=== PATIENT | female | born 1950 | race Caucasian/White ===

== ENCOUNTER 2019-05-27 05:39 | Outpatient (RCR) | payer MEDICARE, MEDICAID, SELFPAY | END 2019-06-04 00:01 | LOC: ONCMTN 05:39 | PROVIDERS: Family Provider Nurse Practitioner Family; Visit Provider Internal Medicine Hematology & Oncology | DX: D50.9 Iron deficiency anemia, unspecified (principal); J44.9 Chronic obstructive pulmonary disease, unspecified; G47.33 Obstructive sleep apnea (adult) (pediatric); E11.22 Type 2 diabetes mellitus with diabetic chronic kidney disease; N18.9 Chronic kidney disease, unspecified; Z79.4 Long term (current) use of insulin; Z86.73 Personal history of transient ischemic attack (TIA), and cerebral infarction without residual deficits; Z79.01 Long term (current) use of anticoagulants | CPT/HCPCS: 82728; 83540; 83550; 85025; 99213 ==

== ENCOUNTER 2019-07-18 08:00 | Outpatient (CLI) | payer MEDICARE, MEDICAID, SELFPAY ==
[2019-07-18 10:38] LABS: Basophils % 0.2 %; Eosinophils # 0.2 10^3/uL (0.0-0.8); Eosinophils % 2.7 %; Hematocrit 47.7 % (37.0-47.0); Hemoglobin 15.9 g/dL (11.5-15.3); Lymphocytes % 33.5 %; Mean Corpuscular HGB Conc 33.3 g/dL (30.0-36.0); Mean Corpuscular Hemoglobin 33.4 pg (28.0-34.0); Mean Corpuscular Volume 100.2 fL (81-99); Mean Platelet Volume 9.4 fL (7.4-10.4); Monocytes # 0.7 10^3/uL (0.2-0.9); Monocytes % 7.9 %; Neutrophils # 4.9 10^3/uL (1.8-7.7); Neutrophils % 55.1 %; Nucleated Red Blood Cells % 0 %; Platelet Count 269 10^3/cmm (130-400); Red Blood Count 4.76 10^6/uL (4.1-5.3); Red Cell Distribution Width 13.3 % (12.1-15.1); White Blood Count 8.8 10^3/uL (4.0-10.0)
[2019-07-18 10:45] LABS: Ferritin 65 ng/mL (15-150); Iron 114 ug/dL (37-145); Percent Saturation 42.3 % (20-50); Total Iron Binding Capacity 269 mcg/dl; Unsaturated Iron Binding 155 ug/dL (112-347)
== END 2019-07-18 08:01 | disposition home or self-care (01) ==
LOC: ONCMED 09:41
PROVIDERS: Family Provider Nurse Practitioner Family; PCP Nurse Practitioner Family; Visit Provider Internal Medicine Hematology & Oncology
DX: D50.0 Iron deficiency anemia secondary to blood loss (chronic) (principal)
CPT/HCPCS: 82728; 83540; 83550; 85025

== ENCOUNTER 2019-09-18 07:50 | Outpatient (CLI) | payer MEDICARE, MEDICAID, SELFPAY ==
[2019-09-18 12:39] LABS: Basophils % 0.2 %; Eosinophils # 0.2 10^3/uL (0.0-0.8); Eosinophils % 1.9 %; Hematocrit 46.4 % (37.0-47.0); Hemoglobin 15.4 g/dL (11.5-15.3); Lymphocytes # 2.5 10^3/uL (0.8-4.8); Lymphocytes % 21.6 %; Mean Corpuscular HGB Conc 33.2 g/dL (30.0-36.0); Mean Corpuscular Hemoglobin 34.5 pg (28.0-34.0); Mean Corpuscular Volume 103.8 fL (81-99); Mean Platelet Volume 9.1 fL (7.4-10.4); Monocytes # 0.9 10^3/uL (0.2-0.9); Monocytes % 7.2 %; Neutrophils % 68.5 %; Nucleated Red Blood Cells % 0 %; Platelet Count 309 10^3/cmm (130-400); Red Blood Count 4.47 10^6/uL (4.1-5.3); Red Cell Distribution Width 13.5 % (12.1-15.1); White Blood Count 11.7 10^3/uL (4.0-10.0)
[2019-09-18 12:55] LABS: Ferritin 33 ng/mL (15-150); Iron 38 ug/dL (37-145); Percent Saturation 12.4 % (20-50); Total Iron Binding Capacity 306 mcg/dl; Unsaturated Iron Binding 268 ug/dL (112-347)
== END 2019-09-18 07:51 | disposition home or self-care (01) ==
LOC: ONCMED 15:03
PROVIDERS: Family Provider Nurse Practitioner Family; Visit Provider Internal Medicine Hematology & Oncology
DX: D50.0 Iron deficiency anemia secondary to blood loss (chronic) (principal)
CPT/HCPCS: 82728; 83540; 83550; 85025

== ENCOUNTER 2019-09-20 06:55 | Outpatient (CLI) | payer MEDICARE, MEDICAID, SELFPAY ==
--- NOTE | 2019-09-20 15:17 | ONC FU_ITS ---
Dr. Gong follow up note Patient: Selin Woodward Unit #: [id number]: 1950 Dicatated By: Royce Gong M.D.Date of Visit:Sep 20, 2019 Onc Med Follow-up/Prog Note History of Present Illness: Mrs. Selin Woodward , is a 69-year-old woman with history of iron deficiency anemia, as per patient in 2008 or she underwent EGD and colonoscopy in [place] and at that time she was told the test was normal and there was no sign of bleeding, she tried some oral iron but did not tolerate well. And since then off and on she been told about low blood counts. And recently about 2 months ago her hemoglobin dropped significantly and required 1 unit of blood transfusion and again about 2 weeks ago she received another unit of packed RBC for progressive anemia. Regarding her labs done on 02/20/2019 showed white blood count 9.2 hemoglobin 10.1 hematocrit 33.5 MCV 81.1 platelets 380,000 and ferritin was 9 normal being 16-218. TIBC 468, iron saturation 4% folate was more than 24, B12 was 1178. Patient said in November 2018 she underwent colonoscopy examination in [facility], and was unremarkable except colitis Patient is on anticoagulation with Xarelto 10 mg by mouth daily and before that she used to take Plavix too . Patient denies any jaundice but darker stools sometime. But no fresh blood per rectum, no jaundice, no hemoptysis or hematemesis, no hematuria Patient is complaining of generalized weakness and fatigue. But felt better after blood transfusion. Denies any heartburn indigestion. Denies alcohol use. But heavy smoker. Status post Injectafer 750 mg weekly ???2 on 03/07/2019 and 03/18/2019 with excellent response hemoglobin improved from 9.3 on 03/07/2019 to 13.8 on 04/16/2019. Evaluated via telephone, patient denies any specific complaints, no melena or hematochezia, no nausea or vomiting, denies any jaundice denies any shortness of breath or palpitation Medications: Acetaminophen 2 Tablet (of 325 mg) Oral q 6 hours PRN, Albuterol Sulfate 1 ((2.5 mg/3ml) 0.083%) Nebulization solution Inhalation t.i.d., Aspirin 1 Tablet (of 81 mg) Oral daily, Atorvastatin Calcium 1 Tablet (of 80 mg) Oral daily, Breo Ellipta 1 puff(s) (of 200-25 mcg/inh) Aerosol Powder, Breath Activated Inhalation daily, buPROPion HCl ER (SR) 1 Tablet (of 150 mg) Tablet SR 12 HR Oral b.i.d., Diclofenac Sodium 1 Tablet (of 50 mg) Tablet, enteric coated Oral b.i.d., dilTIAZem CD 1 Capsule (of 240 mg) Capsule SR 24 HR Oral daily, diphenhydrAMINE HCl 1 - 2 Capsule (of 25 mg) Oral q 6 hours PRN, DocQLace 1 Capsule (of 100 mg) Oral b.i.d., Ezetimibe 1 Tablet (of 10 mg) Oral daily, Farxiga 1 Tablet (of 5 mg) Oral daily, Ferrous Sulfate 1 Tablet (of 325 (65 fe) mg) Oral b.i.d., Furosemide 1 Tablet (of 40 mg) Oral daily, Gabapentin 1 Capsule (of 300 mg) Oral b.i.d., hydrOXYzine HCl 1 Tablet (of 25 mg) Oral t.i.d. PRN, Isosorbide Mononitrate ER 1 Tablet (of 120 mg) Tablet SR 24 HR Oral daily, Levemir FlexTouch 38 Units Subcutaneous at bedtime, Levothyroxine Sodium 1 Tablet (of 75 mcg) Oral daily, Losartan Potassium 1 Tablet (of 100 mg) Oral daily, Magnesium Oxide 1 Tablet (of 400 mg) Oral daily, Metoprolol Tartrate 1 Tablet (of 50 mg) Oral b.i.d., Multivitamin Adults 1 Tablet Oral daily, Nitroglycerin 1 Tablet (of 0.4 mg) Tablet, sublingual Sublingual PRN, Nortriptyline HCl 1 Capsule (of 25 mg) Oral daily, Ondansetron HCl 1 Tablet (of 4 mg) Oral q 4 hours PRN, Pantoprazole Sodium 1 Tablet (of 40 mg) Tablet, enteric coated Oral daily, PARoxetine HCl 1 Tablet (of 10 mg) Oral daily, Polyethylene Glycol 3350 1 Powder Oral daily, Potassium Chloride ER 1 Capsule (of 10 meq) Capsule, controlled release Oral daily, predniSONE 1 Tablet (of 20 mg) Oral daily PRN, rOPINIRole HCl 1 Tablet (of 0.25 mg) Oral four times a day, Spiriva Respimat 2 puff(s) (of 2.5 mcg/act) Aerosol, solution Inhalation daily, Ventolin HFA 2 puff(s) (of 108 (90 base) mcg/act) Aerosol, solution Inhalation q 4 to 6 hours PRN, Vitamin D (Ergocalciferol) 1 Capsule (of 53182 Units) Oral q 7 days, Xarelto 1 Tablet (of 10 mg) Oral daily Allergies: Acyclovir, Gatifloxacin, Iodine Strong, latex, Penicillins, and Prochlorperazine Maleate. Review of Systems: Review of Systems is not available for this patient. Vital Signs: Vitals are not available for this patient. Performance Status: 2 - Ambulatory/capable of all self-care, unable to perform any work activities. Up and about more than 50% of waking hours. (ECOG) Physical Examination: ENMT - denies any mouth sores or thrush, Respiratory - denies any shortness of breath or wheezing, Cardiovascular - denies any tachycardia or palpitation, Abdomen - [place] any abdominal pain or distention, Extremities - denies any edema or rash. Lab/Imaging: Test performed on Jul 18, 2019 08:00 Ferritin 65 ng/mL Iron 114 ug/dL UIBC 155 ug/dL WBC 8.8 10 3/uL RBC 4.76 10 6/uL HGB 15.9 g/dL HCT 47.7 % MCV 100.2 fL MCH 33.4 pg MCHC 33.3 g/dL RDW 13.3 % Platelet Count 269 10 3/cmm MPV 9.4 fL Neutrophils 4.9 10 3/uL Lymphocytes 3.0 10 3/uL Monocytes 0.7 10 3/uL Eosinophils 0.2 10 3/uL Basophils 0.0 10 3/uL Neutrophil % 55.1 % Lymphocyte % 33.5 % Monocyte % 7.9 % Eosinophil % 2.7 % Basophils % 0.2 % Test performed on May 24, 2019 08:30 % Iron Saturation 13.5 % Impression: Microcytic hypochromic anemia probably multifactorial including chronic blood loss, most likely from small bowel as in the past EGD and colonoscopy was unremarkable and recent colonoscopy done November 2018 showed no evidence of active bleeding. So possibility could be small bowel AVM or pathology and anticoagulation therapy can increase risk of bleeding. Other possibility would be iron malabsorption but less likely. Patient has intolerance to oral iron. Complex medical history including COPD, history of CVA, sleep apnea, chronic kidney disease, coronary atherosclerosis, status post CABG diabetes mellitus type II, bilateral carotid artery occlusion, Plan: Discussed with patient via telephone regarding her labs white blood count 11.7 hemoglobin 15.4 hematocrit 46.4 platelets 309,000 iron saturation 12.4% ferritin 33 compared to 65 on 07/18/2019 iron 38 compared to 114 on 07/18/2019 Clinically, patient is doing well, no signs symptoms suggestive of gross bleeding. Follow-up lab shows hemoglobin stable and in normal range but iron studies shows further drop in his iron stores. We'll continue to monitor repeat her labs CBC and iron studies in one month and if there is a further drop in her hemoglobin or iron storage then we may consider repeating parenteral iron. Signed By: Royce Gong M.D. <<Signature on File>>
== END 2019-09-20 06:56 | disposition home or self-care (01) ==
LOC: ONCMED 06:57
PROVIDERS: Family Provider Nurse Practitioner Family; Visit Provider Internal Medicine Hematology & Oncology
DX: D50.9 Iron deficiency anemia, unspecified (principal); J44.9 Chronic obstructive pulmonary disease, unspecified; Z86.73 Personal history of transient ischemic attack (TIA), and cerebral infarction without residual deficits; E11.22 Type 2 diabetes mellitus with diabetic chronic kidney disease; N18.9 Chronic kidney disease, unspecified; I25.10 Atherosclerotic heart disease of native coronary artery without angina pectoris; Z95.5 Presence of coronary angioplasty implant and graft

== ENCOUNTER 2019-10-14 08:15 | Outpatient (CLI) | payer MEDICARE, MEDICAID, SELFPAY ==
[2019-10-14 12:26] LABS: Basophils % 0.3 %; Eosinophils # 0.2 10^3/uL (0.0-0.8); Eosinophils % 2.5 %; Hematocrit 48.3 % (37.0-47.0); Hemoglobin 15.9 g/dL (11.5-15.3); Lymphocytes # 1.9 10^3/uL (0.8-4.8); Lymphocytes % 26.4 %; Mean Corpuscular HGB Conc 32.9 g/dL (30.0-36.0); Mean Corpuscular Hemoglobin 33.8 pg (28.0-34.0); Mean Corpuscular Volume 102.8 fL (81-99); Monocytes # 0.5 10^3/uL (0.2-0.9); Monocytes % 7.2 %; Neutrophils # 4.6 10^3/uL (1.8-7.7); Neutrophils % 62.9 %; Nucleated Red Blood Cells % 0 %; Platelet Count 288 10^3/cmm (130-400); Red Cell Distribution Width 13.4 % (12.1-15.1); White Blood Count 7.2 10^3/uL (4.0-10.0)
[2019-10-14 12:40] LABS: Ferritin 30 ng/mL (15-150); Iron 57 ug/dL (37-145); Percent Saturation 18.9 % (20-50); Total Iron Binding Capacity 301 mcg/dl; Unsaturated Iron Binding 244 ug/dL (112-347)
== END 2019-10-14 08:16 | disposition home or self-care (01) ==
LOC: ONCMED 16:48
PROVIDERS: Visit Provider Internal Medicine Hematology & Oncology
DX: D50.0 Iron deficiency anemia secondary to blood loss (chronic) (principal)
CPT/HCPCS: 82728; 83540; 83550; 85025

== ENCOUNTER 2020-03-06 09:45 | Outpatient (CLI) | payer MEDICARE, MEDICAID, SELFPAY ==
[2020-03-06 11:54] LABS: Basophils % 0.3 %; Eosinophils # 0.2 10^3/uL (0.0-0.8); Eosinophils % 2.1 %; Hematocrit 46.7 % (37.0-47.0); Hemoglobin 15.6 g/dL (11.5-15.3); Lymphocytes # 2.5 10^3/uL (0.8-4.8); Lymphocytes % 27.7 %; Mean Corpuscular HGB Conc 33.4 g/dL (30.0-36.0); Mean Corpuscular Hemoglobin 33.3 pg (28.0-34.0); Mean Corpuscular Volume 99.6 fL (81-99); Mean Platelet Volume 9.7 fL (7.4-10.4); Monocytes # 0.7 10^3/uL (0.2-0.9); Neutrophils # 5.52 10^3/uL (1.8-7.7); Neutrophils % 61.5 %; Nucleated Red Blood Cells % 0 %; Platelet Count 237 10^3/cmm (130-400); Red Blood Count 4.69 10^6/uL (4.1-5.3); Red Cell Distribution Width 13.7 % (12.1-15.1)
[2020-03-06 12:39] LABS: Ferritin 32 ng/mL (15-150); Iron 87 ug/dL (37-145); Percent Saturation 29.6 % (20-50); Total Iron Binding Capacity 293 mcg/dl; Unsaturated Iron Binding 206 ug/dL (112-347)
== END 2020-03-06 09:46 | disposition home or self-care (01) ==
LOC: ONCMED 11:40
PROVIDERS: Visit Provider Internal Medicine Hematology & Oncology
DX: D50.0 Iron deficiency anemia secondary to blood loss (chronic) (principal)
CPT/HCPCS: 36415; 82728; 83540; 83550; 85025

== ENCOUNTER 2020-07-03 12:44 | Outpatient (CLI) | payer MEDICARE, MEDICAID, SELFPAY ==
--- NOTE | 2020-07-03 12:45 | USCV_ITS ---
Selin Woodward' Age: 69 Gender: F : 1950 Exam Date: 07/03/2020 13:07 Ordering Phys: Kristan Odom MD ([email or web address]) Technologist: Elysia Bradley Exam Location: [facility] [place] Indication: av disorder BP: 209 / 89 HR: 123 Rhythm: Sinus Technical Quality: Adequate MEASUREMENTS (Male / Female) Normal Values 2D ECHO LV Diastolic Diameter PLAX 4.0 cm 4.2 - 5.9 / 3.9 - 5.3 cm LV Systolic Diameter PLAX 3.1 cm LV Chamber Size 3.1 cm IVS Diastolic Thickness 1.6 cm 0.6 - 1.0 / 0.6 - 0.9 cm IVS Systolic Thickness 1.6 cm LVPW Diastolic Thickness 1.7 cm 0.6 - 1.0 / 0.6 - 0.9 cm LVPW Systolic Thickness 2.0 cm RV Chamber Size 2.5 cm LVOT Diameter 2.0 cm LV Ejection Fraction 2D Teich 48.4 % LV Ejection Fraction MOD 2C 24.8 % LV Ejection Fraction 2C AL 28.2 % LA Diameter 3.3 cm LA Width 3.4 cm LA Height 4.9 cm RA Width 2.9 cm RA Height 4.2 cm Aorta at Sinotubular Diameter 2.6 cm M-MODE LV Diastolic Diameter MM 4.0 cm 4.2 - 5.9 / 3.9 - 5.3 cm LV Systolic Diameter MM 2.6 cm LV Ejection Fraction MM Teich 63.1 % IVS Diastolic Thickness MM 1.3 cm 0.6 - 1.0 / 0.6 - 0.9 cm IVS Systolic Thickness MM 1.4 cm LVPW Diastolic Thickness MM 0.8 cm 0.6 - 1.0 / 0.6 - 0.9 cm LVPW Systolic Thickness MM 1.3 cm Aortic Annulus Diameter 3.1 cm LA Ao Ratio MM 1.2 MV E Point Septal Separation 1.6 cm DOPPLER AV Peak Velocity 170.0 cm/s LVOT Peak Velocity 105.0 cm/s AV Area Cont Eq vti 2.0 cm squared AV Area Cont Eq pk 1.9 cm squared MV Area PHT 10.5 cm squared Mitral E to A Ratio 0.7 MV E' Velocity 38.0 cm/s Mitral E to MV E' Ratio 6.8 Mitral E to LV E' Lateral Ratio 6.3 Mitral E to LV E' Septal Ratio 7.4 TR Peak Velocity 131.0 cm/s TR Peak Gradient 6.9 mmHg TV Peak E Velocity 78.0 cm/s Right Atrial Pressure 3.0 mmHg Pulmonary Artery Systolic Pressu 9.9 mmHg PV Peak Velocity 95.0 cm/s RV Acceleration Time 0.1 s RV Ejection Time 0.3 s RV AcT/ET 0.3 FINDINGS Left Ventricle Normal left ventricular cavity size. Normal left ventricular systolic function. Left ventricular ejection fraction is estimated at 60%. Although no diagnostic regional wall motion abnormality could be identified, this possibility cannot be completely ruled out. Right Ventricle Normal right ventricular size and systolic function. Right ventricular systolic pressure 9.9 mmHg. Right Atrium Normal right atrial size. Left Atrium Mildly increased left atrial size. Mitral Valve Mild mitral annular calcification. Thickened mitral valve. Trace mitral valve regurgitation. Aortic Valve Aortic valve not well visualized. No aortic valve stenosis. Tricuspid Valve Structurally normal tricuspid valve. Trace tricuspid valve regurgitation. Pulmonic Valve Pulmonic valve not well visualized. Pericardium No pericardial effusion. Aorta Aorta not well visualized. CONCLUSIONS 1. This is a technically difficult study. 2. Normal left ventricular cavity size and systolic function. Left ventricular ejection fraction is estimated at 60%. Although no diagnostic regional wall motion abnormality could be identified, this possibility cannot be completely ruled out. 3. Normal right ventricular size and systolic function. 4. No prior similar studies to compare. Kristan Odom MD (Electronically Signed) Final Date: 12 July 2020 18:05 S
--- NOTE | 2020-07-03 13:30 | USCV_ITS ---
Trace Selin' Age: 69 Gender: F : 1950 Exam Date: 07/03/2020 13:19 Ordering Phys: Kristan Odom MD ([email or web address]) Technologist: Elysia Bradley [place] [facility] [place]: stenosis Risk Factors: Previous Vascular Surgery: Right Brachial BP: / Left Brachial BP: / Right Left Velocity (cm/s) Spectral Plaque Velocity (cm/s) Spectral Plaque Syst/Diast Broadening Syst/Diast Broadening 76.10/ 36.40 Prox CCA 46.50 / 9.70 58.40/ 26.50 Mid CCA 54.40 / 6.60 103.60/36.40 Distal CCA 25.40 / 6.60 193.70/34.20 Prox ICA 27.20 / 5.40 95.70/ 20.20 Mid ICA 14.90 / 6.50 73.90/ 16.80 Distal ICA / 213.60 ECA 228.80 3.31 ICA/CCA 0.50 Vertebral Antegrade / cm/s 67.00/ 23.10 cm/s Tri Subclavian Tri 80.90 56.00 CONCLUSIONS Technically limited exam, unable to obtain accurate velocities. Recommend CTA in further evaluation. Moderate atheromatous plaque right carotid bulb/ICA. Moderate atheromatous plaque left carotid bulb/ICA. Marques Doss MD (Electronically Signed) Final Date: 03 July 2020 14:41 S
== END 2020-07-03 12:45 | disposition home or self-care (01) ==
LOC: US 12:47
PROVIDERS: PCP Internal Medicine; Visit Provider Internal Medicine Cardiovascular Disease
DX: I65.23 Occlusion and stenosis of bilateral carotid arteries (principal); I35.8 Other nonrheumatic aortic valve disorders
CPT/HCPCS: 93306; 93880

== ENCOUNTER 2020-09-04 09:01 | Outpatient (CLI) | payer MEDICARE, MEDICAID, SELFPAY ==
[2020-09-04 09:48] VITALS: BMI 25.6
--- NOTE | 2020-09-04 10:49 | NMCV_ITS ---
NM mone perf SPECT r/s* [id number] Ramandeep Woodward Age: 70 Gender: F : 1950 Exam Date: 09/04/2020 11:26 Ordering Phys: Kristan Odom MD ([email or web address]) Technologist: CHUY Guzmán Exam Location: [facility] Indications: Chest pain STRESS TEST Please see separate stress test report in [facility] for full findings IMAGE PROTOCOL Rest/Stress 1 Lexiscan Day Radiopharmaceutical Dose (mCi) Administration Site Administered by Rest: Tc-99m 10.8 IV CHUY Borges Sestamibi Stress:Tc-99m 32.6 IV CHUY Guzmán Sestamibi Rest: 04-Sep-2020 60 Discovery 630 Stress: 04-Sep-2020 45 Discovery 630 0.4mg Lexiscan. Supine position only as patient was unable to lay prone. SPECT RESULTS Technical Quality: Good Raw Data Analysis: Subdiaphragmatic activity Image Corrections: Patient motion artifact - motion correction applied rest images. Summed Stress Score: 4 Summed Rest Score: 5 Summed Difference Score: 0 PERFUSION FINDINGS Small size perfusion abnormality of moderate severity of mid to apical inferior, apical septal and apical bullock on rest and subtle reversibility in apical septal wall on stress images. FUNCTIONAL RESULTS (calculated via Gated SPECT) Stress Image LV EF (%): 43 Stress EDV (mL):148 TID: 1.23 Stress ESV (mL):84 FUNCTIONAL FINDINGS: The left ventricle is normal in size. Transient Ischemia Dilatation of 1.2. There is mildly reduced left ventricular global systolic function. The left ventricular ejection fraction is reduced with a value of 43%. There is mildly decreased wall thickening. IMPRESSIONS 1. Small size perfusion abnormality of moderate severity mid to apical inferior, apical septal and apical bullock with subtle reversibility in apical septal wall on stress images. 2. This likely represent attenuation artifact given subdiaphragmatic as well as motion artifact. 3. Overall left ventricular systolic function is mildly reduced at 43% with global hypokinesis. 4. Transient ischemic dilation index increased at 1.23. This may represent subendocardial ischemia or multivessel coronary artery disease.. Clinical correlation is advised. 5. EKG portion of the study will be reported separately. Kristan Odom MD (Electronically Signed) Final Date: 08 September 2020 11:25 S
--- NOTE | 2020-09-04 10:49 | ECG_ITS ---
[facility] Test Date: 2020-09-04 Pat Name: Ramandeep Woodward Department: Room: Gender: Female Forcer Maker: : 1950 Requested By: Kristan Odom Order Number: [id number] Josesito MD: Kristan Odom M.D. Interpretive Statements NAME OF STUDY: LEXISCAN SESTAMIBI STRESS TEST INDICATION: Chest Pain PROCEDURE: At the baseline, the blood pressure was 157/85 mmHg with a heart rate of 77 bpm. The electrocardiogram showed sinus rhythm with normal axis and significant baseline artifact. The Lexiscan was infused over a period of 20 seconds. A total of 0.4 milligrams of Lexiscan was infused. The stress phase was continued for a total of 5 minutes. Heart rate at the end of the stress phase was 84 bpm with a blood pressure of 169/82 mmHg. The EKG at the peak infusion revealed sinus rhythm with no interpretable significant ST-T wave changes. Baseline artifact throughout the study. Sestamibi was injected 20 seconds after the Lexiscan infusion. Blood pressure at the end of the recovery phase was 181/81 mmHg with a heart rate of 85 beats per minute. CONCLUSION: 1. Possibly no significant EKG changes with LexiScan infusion. Interpretation limited by artifact. 2. No LexiScan induced chest pain or cardiac arrhythmia. 3. Baseline hypertension with normal blood pressure and heart rate response. 4. Sestamibi/sestamibi perfusion scan pending; see separate report. Electronically Signed On 09-11-2020 14:24:18 CDT by Kristan Odom M.D. [id number]
[2020-09-04] MEDS: regadenoson 0.4 Mg/5 ml Syringe IVP (12:04)
[2020-09-04 12:09] VITALS: BP 181/81; PULSE 87
== END 2020-09-04 09:02 | disposition home or self-care (01) ==
PROVIDERS: PCP Internal Medicine; Visit Provider Internal Medicine Cardiovascular Disease
DX: R07.9 Chest pain, unspecified (principal)
CPT/HCPCS: 78452; 93017; A9500; J2785

== ENCOUNTER 2021-04-02 12:16 | Inpatient (IN) | payer MEDICARE, MEDICAID, SELFPAY ==
[2021-04-02] VITALS (15 sets, daily range): BP systolic 91–134; BP diastolic 54–72; PULSE 50–66; RESP 14–22; TEMP 36.5–37.2; O2SAT 91–98; BMI 26.5
--- NOTE | 2021-04-02 12:29 | ECG_ITS ---
[facility] Test Date: 2021-04-02 Pat Name: Ramandeep Woodward Department: Room: Gender: Female Founding Partner: : 1950 Requested By: Gerald Herbert Order Number: [id number] Josesito MD: Kristan Odom M.D. Measurements Intervals [place] Rate: 54 P: -72 AR: 115 QRS: 13 QRSD: 120 T: -76 QT: 426 QTc: 405 Interpretive Statements JUNCTIONAL BRADYCARDIA MODERATE INTRAVENTRICULAR CONDUCTION DELAY [110+ ms QRS DURATION] MODERATE T-WAVE ABNORMALITY, CONSIDER LATERAL ISCHEMIA [-0.1+ mV T-WAVE IN I/aVL/V5/V6] MODERATE T-WAVE ABNORMALITY, CONSIDER INFERIOR ISCHEMIA [-0.1+ mV T-WAVE IN II/aVF] No previous ECG available for comparison Electronically Signed On 04-03-2021 8:52:45 CDT by Kristan Odom M.D. [id number]
--- NOTE | 2021-04-02 12:29 | XR_ITS ---
WS: [id number] Exam: XR chest 1V portable [id number] Date/Time of Exam: 04/02/2021 12:33 PM Reason For Exam: dyspnea/cough No priors. The lungs are fully expanded. No obvious infiltrates. No pleural effusions. Heart size is within norm al limits. The mediastinum is not widened. Signs of previous median sternotomy. Surgical clips along the right heart border. Surgical clips in the left neck. XR/XR chest 1V portable [id number] IMPRESSION: 1. No acute cardiopulmonary finding.
--- NOTE | 2021-04-02 12:45 | ED_ITS ---
HPI - Neuro Symptoms/Deficit General: Chief Complaint: Neuro Symptoms/Deficit Stated Complaint: SYNCOPE, HYPERGLYCEMIA Time Seen by Provider: 04/02/21 12:28 History of Present Illness: HPI Narrative: 68-year-old female presents emergency room from home. She had gotten up to go to the bathroom and had a near syncopal episode her family caught her she never really fully lost consciousness she was slightly confused when she first got here but she is awake alert and is now aware of time place and person. When she first arrived she was not sure where she was at. She remembers the event. She states she never fully lost consciousness and denies any chest pain abdominal pain dysuria urgency or frequency. Overall she states she feels fine. She does admit to not taking her insulin last night. Onset (ago): minute(s) History of same: No Severity: mild Relieving factors: none Exacerbating factors: none Context: gradual onset On Anticoagulants: No Associated symptoms: Deny chest pain, cough, diaphoresis, fevers/chills, headache(s), anorexia, malaise, nausea, seizures, short of breath, syncope, tingling, vertigo, vomiting or weakness Treatments Prior to Arrival: none Review of Systems Const: Denies: malaise or diaphoresis ENMT: Denies: throat pain, ear or mastoid pain, nasal discharge or nasal congestion Card: Denies: chest pain or syncope Resp: Denies: dyspnea, productive cough or non-productive cough GI: Denies: nausea or vomiting : Denies: flank pain, difficulty voiding, dysuria, urinary frequency or urinary urgency Skin/Breast: Denies: rash or pruritus Neuro: Denies: headache(s) or vertigo PFSH ED PFSH: Medical History Anemia Aortic valve mass CAD (coronary artery disease) Carotid stenosis Diabetes History of seizure HTN (hypertension) Hyperlipidemia Stroke, embolic TIA (transient ischemic attack) Family History Other CHF (congestive heart failure) Social History Smoking and tobacco status: current every day smoker cigarettes Packs smoked per day: 1 Alcohol intake: former Physical Exam Const: COMMON NORMALS: no acute distress GENERAL APPEARANCE: cooperative and comfortable ORIENTATION/CONSCIOUSNESS: Yes awake, Yes oriented to person, Yes oriented to place and Yes oriented to time HENMT: COMMON NORMALS: normocephalic, atraumatic and hearing grossly normal bilaterally HEAD & SCALP: normocephalic and atraumatic Neck/C-Spine: COMMON NORMALS: no JVD Resp: COMMON NORMALS: normal respiratory effort, No retractions, No use of accessory muscles and clear to auscultation bilaterally AUSCULTATION: clear to auscultation bilaterally Cardio: COMMON NORMALS: no JVD, regular rate, regular rhythm and No murmurs present (Cardio) RATE: regular rate RHYTHM: regular rhythm GI: COMMON NORMALS: Soft to palpation and No hepatosplenomegaly present AUSCULTATION: Yes normoactive bowel sounds PALPATION: Yes Soft to palpation, No Tenderness to palpation present (GI), No Guarding due to palpation present (GI) and Yes No hepatosplenomegaly present Extremity: COMMON NORMALS: normal to inspection, capillary refill normal, no clubbing, cyanosis or edema, no calf tenderness and no pedal edema Neuro: SENSORIUM/ORIENTATION: Yes oriented to person, Yes oriented to place and Yes oriented to time Skin: COMMON NORMALS: no rashes or lesions noted GENERAL SKIN EXAM: no rashes or lesions noted Course Vital Signs: Vital signs: Vital Signs Temperature 99.0 F 04/02/21 13:05 Pulse Rate 52 L 04/02/21 17:00 Respiratory Rate 21 H 04/02/21 16:50 Blood Pressure 134/63 04/02/21 13:05 Pulse Oximetry 97 04/02/21 16:50 MDM - Neuro Symptoms/Deficit MDM Narrative: Medical decision making narrative: Patient has subclavian steal when she is getting TIAs from this. She has known severe vascular disease. She previously had a left carotid stenting place does not seem to be adequate anymore she is aggressively anticoagulated. Unfortunately not sure there is really much more that can be done in this respect. She will need to be admitted for her hypercapnia she is relying on BiPAP at this point she has improved some with the BiPAP there is no sign of pneumonia on the chest x-ray. Discussed with Dr. Thomas will admit for COPD exacerbation further evaluation to the extent that we can regarding her peripheral vascular disease and TIAs Lab Data: Labs: Lab Results 04/02/21 04/02/21 04/02/21 11:32 11:32 11:32 WBC 6.5 10^3/uL 10^3/ uL (4.0-10.0) RBC 4.35 10^6/uL 10^6 /uL (4.1-5.3) Hgb 13.8 g/dL g/dL (11.5-15.3) Hct 43.2 % % (37.0-47.0) MCV 99.3 fl H fl (81-99) MCH 31.7 pg pg (28.0-34.0) MCHC 31.9 g/dL g/dL (30.0-36.0) RDW 15.4 % H % (12.1-15.1) Plt Count 219 10^3/cmm 10^3 /cmm (130-400) MPV 9.2 fL fL (7.4-10.4) Neut % (Auto) 70.5 % % Lymph % (Auto) 19.5 % % Duval % (Auto) 7.0 % % Eos % (Auto) 2.5 % % Baso % (Auto) 0.2 % % Neut # (Auto) 4.55 10^3/uL 10^3 /uL (1.8-7.7) Lymph # (Auto) 1.3 10^3/uL 10^3/ uL (0.8-4.8) Duval # (Auto) 0.5 10^3/uL 10^3/ uL (0.2-0.9) Eos # (Auto) 0.2 10^3/uL 10^3/ uL (0.0-0.8) Baso # (Auto) 0.0 10^3/uL 10^3/ uL (0.0-0.1) Nucleated RBC % (a uto) 0 % % Nucleated RBCs # 0.0 /100WBC /100W BC Specimen Type Sample Site ABG pH ABG pCO2 ABG pO2 ABG HCO3 ABG O2 Saturation ABG Base Excess Allan Test A-a O2 Gradient Hematocrit Hgb O2 Saturation Carboxyhemoglobin Methemoglobin Total Hemoglobin Ionized Calcium O2 Delivery Device O2 Liters/Min FiO2 Meteorological Equipment Repairer ID Sodium 136 mmol/L mmol/L (136-145) Potassium 4.1 mmol/L mmol/L (3.5-5.1) Chloride 95 mmol/L L mmol/ L (98-107) Carbon Dioxide 33 mmol/L H mmol/ L (22-29) Anion Gap 12.1 (5-19) BUN 30 mg/dL H mg/dL (8-23) Creatinine 1.1 mg/dL H mg/dL (0.5-0.9) GFR Calculation Not Reportable Glucose 258 mg/dL H mg/dL (65-115) POC Glucose Calculated Osmolal ity 297 mOsm/kg H mOs m/kg (285-295) Calcium 9.2 mg/dL mg/dL (8.5-10.5) Magnesium 1.9 mg/dL mg/dL (1.7-2.3) Lipase 30 U/L U/L (13-60) Urine Color Urine Appearance Urine pH Ur Specific Gravit y Urine Protein Urine Glucose (UA) Urine Ketones Urine Blood Urine Nitrate Urine Bilirubin Urine Urobilinogen Ur Leukocyte Nelsy ase Urine RBC Urine WBC Ur Squamous Epith Cells Amorphous Sediment Urine Bacteria Serum Ketones Negative (Negative) 04/02/21 04/02/21 04/02/21 12:31 13:14 16:53 WBC RBC Hgb Hct MCV MCH MCHC RDW Plt Count MPV Neut % (Auto) Lymph % (Auto) Duval % (Auto) Eos % (Auto) Baso % (Auto) Neut # (Auto) Lymph # (Auto) Duval # (Auto) Eos # (Auto) Baso # (Auto) Nucleated RBC % (a uto) Nucleated RBCs # Specimen Type Arterial Sample Site Radial, left ABG pH 7.33 L (7.35-7.45) ABG pCO2 62.3 mmHg H* mmHg (35-45) ABG pO2 68.3 mmHg L mmHg (80.0-100.0) ABG HCO3 32.9 mmol/L H mmo l/L (22-26) ABG O2 Saturation 92.9 ABG Base Excess 5.1 mmol/L H mmol /L (-2.0-2.0) Allan Test Pos A-a O2 Gradient 14.3 mmHg H mmHg (5-10) Hematocrit 40.9 % % (37-47) Hgb O2 Saturation 84.9 % L % (95-100) Carboxyhemoglobin 8.2 %THgb %THgb (0.4-20.1) Methemoglobin 0.5 % % (0.4-1.5) Total Hemoglobin 13.3 g/dL g/dL (12-16) Ionized Calcium 1.3 mmol/L mmol/L (1.1-1.4) O2 Delivery Device Nc O2 Liters/Min 4.0 % % FiO2 36.0 % % Meteorological Equipment Repairer ID Ed Sodium 137.0 mmol/L mmol /L (131-143) Potassium 3.9 mmol/L mmol/L (3.5-5.0) Chloride Carbon Dioxide Anion Gap BUN Creatinine GFR Calculation Glucose 253.0 mg/dL H mg/ dL (70-115) POC Glucose 273 mg/dL H mg/dL (70-110) Calculated Osmolal ity Calcium Magnesium Lipase Urine Color Yellow (Yellow) Urine Appearance Clear (CLEAR) Urine pH 5 (5-7) Ur Specific Gravit y 1.005 (1.005-1.030) Urine Protein 1+ H (Negative) Urine Glucose (UA) 4+ H (Normal) Urine Ketones Negative (Negative) Urine Blood Neg (Negative) Urine Nitrate Negative (Negative) Urine Bilirubin Neg (Negative) Urine Urobilinogen Norm mg/dL mg/dL (Negative) Ur Leukocyte Nelsy ase Negative (Negative) Urine RBC 0-4 /hpf H /hpf (0-2) Urine WBC 0-4 /hpf H /hpf (0-5) Ur Squamous Epith Cells 0-4 /hpf H /hpf (0-5) Amorphous Sediment Not Reportable Urine Bacteria Trace /hpf /hpf (NONE) Serum Ketones 04/02/21 17:00 WBC RBC Hgb Hct MCV MCH MCHC RDW Plt Count MPV Neut % (Auto) Lymph % (Auto) Duval % (Auto) Eos % (Auto) Baso % (Auto) Neut # (Auto) Lymph # (Auto) Duval # (Auto) Eos # (Auto) Baso # (Auto) Nucleated RBC % (a uto) Nucleated RBCs # Specimen Type Arterial Sample Site Brachial, left ABG pH 7.34 L (7.35-7.45) ABG pCO2 57.9 mmHg H mmHg (35-45) ABG pO2 96.6 mmHg mmHg (80.0-100.0) ABG HCO3 31.3 mmol/L H mmo l/L (22-26) ABG O2 Saturation 97.8 ABG Base Excess 4.0 mmol/L H mmol /L (-2.0-2.0) Allan Test N/a A-a O2 Gradient 14.9 mmHg H mmHg (5-10) Hematocrit 41.5 % % (37-47) Hgb O2 Saturation 91.7 % L % (95-100) Carboxyhemoglobin 5.7 %THgb %THgb (0.4-20.1) Methemoglobin 0.5 % % (0.4-1.5) Total Hemoglobin 13.5 g/dL g/dL (12-16) Ionized Calcium 1.3 mmol/L mmol/L (1.1-1.4) O2 Delivery Device Bipap O2 Liters/Min FiO2 40.0 % % Meteorological Equipment Repairer ID Ed Sodium 138.0 mmol/L mmol /L (131-143) Potassium 4.2 mmol/L mmol/L (3.5-5.0) Chloride Carbon Dioxide Anion Gap BUN Creatinine GFR Calculation Glucose 186.0 mg/dL H mg/ dL (70-115) POC Glucose Calculated Osmolal ity Calcium Magnesium Lipase Urine Color Urine Appearance Urine pH Ur Specific Gravit y Urine Protein Urine Glucose (UA) Urine Ketones Urine Blood Urine Nitrate Urine Bilirubin Urine Urobilinogen Ur Leukocyte Nelsy ase Urine RBC Urine WBC Ur Squamous Epith Cells Amorphous Sediment Urine Bacteria Serum Ketones Discharge Plan Discharge Patient Disposition: Admitted As Inpatient Admit Provider: Roman Thomas Condition: Stable Coding Level of Care Code ED Cake Maker for Chg Fwd Exam Comprehensive
[2021-04-02 12:49] LABS: Glucose Point of Care 273 mg/dL (70-110)
[2021-04-02 12:53] LABS: Basophils % 0.2 %; Eosinophils # 0.2 10^3/uL (0.0-0.8); Eosinophils % 2.5 %; Hematocrit 43.2 % (37.0-47.0); Hemoglobin 13.8 g/dL (11.5-15.3); Lymphocytes # 1.3 10^3/uL (0.8-4.8); Lymphocytes % 19.5 %; Mean Corpuscular HGB Conc 31.9 g/dL (30.0-36.0); Mean Corpuscular Hemoglobin 31.7 pg (28.0-34.0); Mean Corpuscular Volume 99.3 fl (81-99); Mean Platelet Volume 9.2 fL (7.4-10.4); Monocytes # 0.5 10^3/uL (0.2-0.9); Neutrophils # 4.55 10^3/uL (1.8-7.7); Neutrophils % 70.5 %; Nucleated Red Blood Cells % 0 %; Platelet Count 219 10^3/cmm (130-400); Red Blood Count 4.35 10^6/uL (4.1-5.3); Red Cell Distribution Width 15.4 % (12.1-15.1); White Blood Count 6.5 10^3/uL (4.0-10.0)
[2021-04-02 13:08] LABS: Anion Gap 12.1 (5-19); Blood Urea Nitrogen 30 mg/dL (8-23); Calcium 9.2 mg/dL (8.5-10.5); Carbon Dioxide 33 mmol/L (22-29); Chloride 95 mmol/L (98-107); Glucose 258 mg/dL (65-115); Lipase 30 U/L (13-60); Magnesium 1.9 mg/dL (1.7-2.3); Osmolality Calculated 297 mOsm/kg (285-295); Potassium 4.1 mmol/L (3.5-5.1); Sodium 136 mmol/L (136-145)
[2021-04-02 13:09] LABS: Ketone (Acetest) Serum Negative (Negative)
[2021-04-02] MEDS: sodium chloride 0.9% 1,000 ML 999 ML IV (13:12)
[2021-04-02] MEDS: ondansetron 2 mg/ML SDV 2 mL 4 MG IVP (13:13)
[2021-04-02 13:24] LABS: ABG PH Result 7.33 (7.35-7.45); Arterial Blood Gas Hematocrit 40.9 % (37-47); Base Excess ABG 5.1 mmol/L (-2.0-2.0); Blood Gas Allen Test Pos; Blood Gas Sample Type Arterial; Carboxyhemoglobin 8.2 %THgb (0.4-20.1); HCO3 ABG 32.9 mmol/L (22-26); HGB O2 Sat 84.9 % (95-100); Ionized Calcium Level - ABG 1.3 mmol/L (1.1-1.4); Methemoglobin 0.5 % (0.4-1.5); Oxygen Saturation ABG 92.9; PO2 ABG 68.3 mmHg (80.0-100.0); Potassium Level - ABG 3.9 mmol/L (3.5-5.0); Total Hemoglobin 13.3 g/dL (12-16)
[2021-04-02 13:25] LABS: Alveolar-Arterial Oxygen Gradi 14.3 mmHg (5-10); Blood Gas Operator Identificat ED; Blood Gas Sample Site Radial, left; Oxygen Device NC
[2021-04-02 13:26] LABS: ABG PCO2 62.3 mmHg (35-45)
--- NOTE | 2021-04-02 13:28 | USCV_ITS ---
Woodward Gurindergolden' Age: 70 Gender: F : 1950 Exam Date: 04/02/2021 13:32 Ordering Phys: Gerald Mcguire DO Technologist: Yovana Monsivais Exam Location: [facility] Indication: pulsus paradoxus Findings Rt Brachial 101 Right RA 91 0.91 Right UA 86 0.86 Lt Brachial 132 Lt RA 135 1.02 Lt UA unable to obtain due to pt tremors Conclusions 1. Significant difference in the blood pressure of 31 mmHg between the right and left upper extremity, is suggest of hemodynamically significant stenosis in the right subclavian artery. Clinical correlation is recommended Dr Sid Couch MD FAC (Electronically Signed) Final Date: 02 April 2021 22:21 S
--- NOTE | 2021-04-02 14:25 | CT_ITS ---
WS: [id number] CT ANGIOGRAM CEREBRAL AND CAROTID ARTERIES HISTORY: subclavian steal/stenosis, TIA TECHNIQUE: CT angiogram is performed of the carotid and cerebral arteries. During arterial injection imaging is obtained from the skull vertex to the aortic arch in 1.25 mm imaging. Coronal and sagittal reformats are submitted. Additional multi planar reformats of the carotid and cerebral arteries are submitted, MIP imaging also reviewed. NASCET criteria utilized. [facility] at least one of these dose optimization techniques: automated exposure control; mA and/or kV adjust ment per patient size (includes targeted exams where dose is matched to clinical indication); or iter ative reconstruction. CONTRAST: Visipaque 320; 95 mL IV. DLP: 1903.14 mGy.cm COMPARISON: None available. Carotid Angiogram: Right carotid: Common carotid artery: Mild stenosis due to intimal thickening at the origin of the RIGHT common chin tid artery. Carotid arteries tortuous with diffuse calcified plaque and intimal thickening. Multifoca l areas of stenosis approaching 50%. Internal carotid artery: Dense of calcified plaque throughout the ICA. Very high-grade stenosis great er than 70% at the bifurcation with the additional multiple stenoses through the skull base. External carotid artery: External carotid artery is poorly visualized and may be occluded at its orig in. Left carotid: Common carotid artery: High-grade stenosis at the origin of the LEFT common carotid artery. Greater t luque 70% stenosis. Additional intimal thickening calcified plaque. Internal carotid artery: Very dense calcified plaque at the bifurcation. Intermittently visualized st ring sign throughout the LEFT ICA. Nearly completely occluded ICA. External carotid artery: Patent. Right vertebral artery: Very small caliber. Left vertebral artery: Atherosclerotic plaque. Dominant. No occlusion. Subclavian arteries: Calcified plaque at the origin of the LEFT subclavian artery. There is a high-gr winsome stenosis 60% at the origin. Additional atherosclerotic plaque within the LEFT subclavian. Densely calcified innominate artery. At the origin from the aorta there is dense calcified plaque with only intermittent visualization of contrast. The lumen is obscured by calcification. Subclavian artery is patent but does contain calcified plaque. Upper thorax: Normal. Thyroid gland: Normal. Osseous structures: Severe cervical spondylosis. CEREBRAL ANGIOGRAM: Intracranial vertebral arteries: Patent. LEFT vertebral artery is dominant. Basilar artery: No significant stenosis or occlusion. No aneurysm. Intracranial Internal carotid arteries: Moderate calcified plaque throughout the RIGHT intracranial c arotid artery. Heavy calcified plaque with areas of moderate stenosis. String sign of the LEFT intrac ranial carotid artery with heavy calcified plaque. Middle cerebral arteries: Normal. Anterior cerebral arteries and ACOM: Normal. Posterior cerebral arteries and PCOM's: Normal. Dural venous sinuses are normally enhancing. There is extensive low-attenuation surrounding the ventricles from prior chronic ischemic disease. Mastoid air cells: Normal. Paranasal sinuses: Normal. Calvarium: Normal. CT/CT angio headneck* [id number] IMPRESSION: 1. Near complete occlusion LEFT ICA. String sign remains through the cervical portion of the carotid artery through the cavernous sinuses. 2. RIGHT ICA stenosis greater than 70% with additional multi focal areas of st enoses throughout the cervical carotid artery. 3. Significant stenosis and calcified plaque involving the RIGHT innominate ar sivakumar. 4. Origin LEFT subclavian artery stenosis at least 60%. 5. Patient has extensive calcified plaque and intimal thickening throughout th e arteries of the chest, neck and head. Notified Gerald Mcguire DO at 04/02/2021 4:15 PM.
[2021-04-02] MEDS: hydrocortisone 100 mg/2 mL SDV IVP (14:51)
[2021-04-02] MEDS: diphenhydrAMINE 50 mg/mL SDV 1mL IVP (14:51)
--- NOTE | 2021-04-02 15:43 | PC.NURSE ---
Staff walking by pts room, pt noted to be attempting to get out of bed while on BiPap. This RN and other staff assisted pt thomas into bed and pt was cleaned up. Pt appeared to have a medium loose stool. Pts bed changed and pt given warm blankets, no further needs at this time.
[2021-04-02] MEDS: iodixanol 320 mg/mL 100mL Btl IV (15:53)
[2021-04-02] MEDS: ipratropium-albuterol 3 mL Neb INHALATION ×3 (16:50→23:58)
[2021-04-02 17:08] LABS: ABG PCO2 57.9 mmHg (35-45); ABG PH Result 7.34 (7.35-7.45); Arterial Blood Gas Hematocrit 41.5 % (37-47); Blood Gas Sample Type Arterial; Carboxyhemoglobin 5.7 %THgb (0.4-20.1); HCO3 ABG 31.3 mmol/L (22-26); HGB O2 Sat 91.7 % (95-100); Ionized Calcium Level - ABG 1.3 mmol/L (1.1-1.4); Methemoglobin 0.5 % (0.4-1.5); Oxygen Saturation ABG 97.8; PO2 ABG 96.6 mmHg (80.0-100.0); Potassium Level - ABG 4.2 mmol/L (3.5-5.0); Total Hemoglobin 13.5 g/dL (12-16)
[2021-04-02 17:10] LABS: Alveolar-Arterial Oxygen Gradi 14.9 mmHg (5-10); Blood Gas Operator Identificat ED; Blood Gas Sample Site Brachial, left; Oxygen Device BIPAP
[2021-04-02 17:11] LABS: Add Urine Microscopic? YES; Bilirubin Urine Neg (Negative); Blood Urine Neg (Negative); Glucose Urine UA 4+ (Normal); Ketones Urine Negative (Negative); Leukocyte Esterase Urine Negative (Negative); Nitrate Urine Negative (Negative); Protein Urine 1+ (Negative); Specific Gravity, Urine 1.005 (1.005-1.030); Urine Appearance Clear (CLEAR); Urine Color Yellow (Yellow); Urobilinogen Urine Norm (Negative); pH Urine 5 (5-7)
[2021-04-02 17:12] LABS: Bacteria Urine TRACE /hpf; RBC Urine 0-4 /hpf (0-2); Squamous Epithelial Cell Urine 0-4 /hpf (0-5); WBC Urine 0-4 /hpf (0-5)
--- NOTE | 2021-04-02 18:09 | PC.NURSE ---
This RN attempted to call report to floor, staff advised this RN they were unaware that anyone was coming to 112 and there were no nurses available at this time. hen a nurse is available she will have them call back to get report. Sarah, information assoc advised
--- NOTE | 2021-04-02 18:36 | PM.HP ---
Providers/Chief Complaint Admitting Physician: Roman Thomas MD Primary Care Provider: Mary Diaz Chief Complaint: SYNCOPE, HYPERGLYCEMIA History of Present Illness Ramandeep Woodward is a 70 year old female with past medical history of CAD s/p CABG x 2 in 1979's, h/o stroke in 2017 with residual right sided weakness and 2018 and TIA's x 3 left carotid stent in 2008 and 2014, subclavian vein stenosis, diastolic CHF anemia s/p EGD and colonoscopy (colitis) recently, HTN, DM-2, HLD, advanced COPD, h/o seizure.B/L carotid artery stenosis, diabetic neuropathy, smoking and fibromyalgia. 4 x 0.4 cm mass on aortic valve not a candidate for SX currently on Xarelto. Was brought in from home with chief complaint of near syncopal episode while going to the bathroom No history of fall, as the family were able to prevent her from falling. As per ER Chart review When she first arrived in the ER she was not sure where she was at. She remembers the event. She states she never fully lost consciousness and denies any chest pain abdominal pain dysuria urgency or frequency. When I saw the patient she was resting comfortably in bed on BIPAP. Upon arrival in the ER she was worked up for above-mentioned complaint. Imaging studies: CT head and neck: Near complete occlusion LEFT ICA. String sign remains through the cervical portion of the carotid artery through the cavernous sinuses. RIGHT ICA stenosis greater than 70% with additional multi focal areas of stenoses throughout the cervical carotid artery. Significant stenosis and calcified plaque involving the RIGHT innominate artery.Origin LEFT subclavian artery stenosis at least 60%. Patient has extensive calcified plaque and intimal thickening throughout the arteries of the chest, neck and head. EKG: Junctional bradycardia Pertinent labs: WBC 6.5 H&H 13.8/ 43 , platelet count:219 , serum sodium 136, serum potassium 4.1, BUN / serum creatinine : 30/ 1.1 , random blood sugar 258, AB.33, PCO2 62, PO2: 68 , FiO2:36.% She was placed on BiPAP in the ER. Review of Systems Const: Denies: fever(s), chills, body aches, change in appetite or diaphoresis Card: Denies: palpitations, edema or swelling of feet/ankles Resp: Denies: wheezing GI: Denies: abdominal pain, nausea, vomiting, diarrhea or constipation : Denies: flank pain Musc: Denies: back pain, extremity pain or extremity swelling Neuro: Denies: headache(s) Medications/Allergies Home Medications Medication Instructions Recorded Confirmed Last Taken Type aspirin 81 mg tablet,delayed 81 mg PO DAILY 08/28/19 04/02/21 04/02/21 History release atorvastatin 80 mg tablet 80 mg PO BEDTIME 08/28/19 04/02/21 04/01/21 History bupropion HCl 150 mg 24 hr tablet, 150 mg PO BID 08/28/19 04/02/21 04/02/21 History extended release dapagliflozin 5 mg tablet 5 mg PO DAILY 08/28/19 04/02/21 04/02/21 History furosemide 40 mg tablet 40 mg PO BID 08/28/19 04/02/21 04/02/21 History gabapentin 300 mg capsule See Rx Instructions .ROUTE .COMPLEX 08/28/19 04/02/21 04/02/21 History insulin detemir U-100 100 unit/mL 40 unit SUBCUT BEDTIME 08/28/19 04/02/21 04/01/21 History (3 mL) subcutaneous pen isosorbide mononitrate 120 mg 120 mg PO DAILY 08/28/19 04/02/21 04/02/21 History tablet,extended release 24 hr levetiracetam 500 mg tablet 500 mg PO BID tab 08/28/19 04/02/21 04/02/21 History losartan 100 mg tablet 100 mg PO DAILY 08/28/19 04/02/21 04/02/21 History multivitamin 1 cap PO DAILY 08/28/19 04/02/21 04/02/21 History nitroglycerin 0.4 mg sublingual 0.4 mg SUBLINGUAL Q5M PRN 08/28/19 04/02/21 Unknown History tablet nortriptyline 25 mg capsule 25 mg PO BEDTIME 08/28/19 04/02/21 04/01/21 History paroxetine HCl 10 mg tablet 10 mg PO DAILY 08/28/19 04/02/21 04/02/21 History potassium chloride 20 mEq 20 meq PO DAILY 08/28/19 04/02/21 04/02/21 History tablet,extended release rivaroxaban 10 mg tablet 10 mg PO DAILY 08/28/19 04/02/21 04/02/21 History ropinirole 0.25 mg tablet 0.25 mg PO TID 08/28/19 04/02/21 04/02/21 History albuterol sulfate 2 puff INHALATION Q4H PRN 04/02/21 04/02/21 Unknown History albuterol sulfate 2.5 mg INHALATION TID PRN 04/02/21 04/02/21 Unknown History amlodipine 5 mg PO DAILY 04/02/21 04/02/21 04/02/21 History cholecalciferol (vitamin D3) 25 mcg PO DAILY 04/02/21 04/02/21 04/02/21 History [Vitamin D3] hyoscyamine sulfate 0.125 mg PO Q6H PRN 04/02/21 04/02/21 Unknown History levothyroxine 88 mcg PO DAILY 04/02/21 04/02/21 04/02/21 History metoprolol tartrate 25 mg PO BID 04/02/21 04/02/21 04/02/21 History omeprazole 20 mg PO DAILY 04/02/21 04/02/21 04/02/21 History tiotropium bromide [Spiriva 2 puff INHALATION DAILY 04/02/21 04/02/21 04/02/21 History Respimat] Allergies Allergy/AdvReac Type Severity Reaction Status Date / Time Iodinated Contrast Media Allergy ALGY-Difficulty Verified 04/02/21 12:19 Breathing Penicillins Allergy ALGY-Rash Verified 04/02/21 12:19 PFSH Acute PFSH: Medical History Anemia Aortic valve mass CAD (coronary artery disease) Carotid stenosis Diabetes History of seizure HTN (hypertension) Hyperlipidemia Stroke, embolic TIA (transient ischemic attack) Family History Other CHF (congestive heart failure) Social History Smoking and tobacco status: current every day smoker cigarettes Packs smoked per day: 1 Alcohol intake: former Vitals/I&O/Wt Last Vital Signs Temp 99.0 F 04/02/21 13:05 Pulse 56 L 04/02/21 18:21 Resp 21 H 04/02/21 16:50 BP 134/63 04/02/21 13:05 Pulse Ox 98 04/02/21 18:21 04/02/21 04/02/21 04/02/21 06:59 14:59 22:59 Intake Total 1000 / 1000 Balance 1000 / 1000 Weight last 48 hrs Weight 65.771 kg Physical Exam Const: COMMON NORMALS: patient oriented x3 HENMT: COMMON NORMALS: normocephalic and atraumatic HEAD & SCALP: normocephalic and atraumatic Resp: OTHER: Minimal B/L Wheezing, no ronchii, no rales Cardio: COMMON NORMALS: regular rate, regular rhythm, S1 normal heart sound present, S2 normal heart sound present, No gallops present (Cardio), No murmurs present (Cardio), No rub (Cardio) and Peripheral pulses 2+ throughout RATE: regular rate RHYTHM: regular rhythm HEART SOUNDS: S1 normal heart sound present and S2 normal heart sound present PERIPHERAL PULSES: Peripheral pulses 2+ throughout GI: COMMON NORMALS: Normal to inspection, nondistended, normoactive bowel sounds present, Soft to palpation, non-tender, No hepatosplenomegaly present and no masses AUSCULTATION: Yes normoactive bowel sounds PALPATION: Yes Soft to palpation and Yes No hepatosplenomegaly present RECTAL EXAM: deferred Extremity: COMMON NORMALS: no clubbing, cyanosis or edema and no pedal edema Neuro: COMMON NORMALS: patient oriented x3 Data : 04/02/21 11:32 04/02/21 11:32 A&P Assessment and plan (1) Near syncope: Patient came in with near syncopal episode: Possibly secondary to subclavian steal syndrome, junctional bradycardia. Hold beta-blockers 500 cc NS Orthostatic vitals Neuro check q4 hours If needed dopamine drip A.m. EKG Telemetry. Cardiology consult Status: Acute (2) Acute on chronic respiratory failure with hypoxia and hypercapnia: Hypercapnic respiratory failure secondary to COPD exacerbation: Duo nebs BIPAP. Monitor ABG Status: Acute (3) Junctional bradycardia: Status: Acute (4) HTN (hypertension): Status: Acute (5) Diabetes: Levemir 40 units subcu at bedtime Low-dose sliding scale insulin Carbohydrate consistent Monitor fingerstick Status: Acute (6) CAD (coronary artery disease): Status: Acute (7) Carotid stenosis: Status: Acute Qualifiers: Laterality: bilateral Qualified Code(s): I65.23 - Occlusion and stenosis of bilateral carotid arteries (8) Aortic valve mass: Not a candidate for surgery Continue Xarelto Status: Acute Attestations Medical Necessity Statement*: Patient needs to be in hospital for management of near syncope , hypercapnia. Anticipated length of stay greater than 2 midnights. Coding Level of Care Code Acute Gear Cutting Machine Operator for g Fwd Diagnoses Near syncope R55 Acute on chronic respiratory failure with hypoxia and hypercapnia J96.21; J96.22 Junctional bradycardia R00.1 HTN (hypertension) I10 Diabetes E11.9 CAD (coronary artery disease) I25.10 Carotid stenosis I65.23 Laterality: bilateral Aortic valve mass I35.8
--- NOTE | 2021-04-02 18:45 | PC.NURSE ---
2nd attempt to call report to floor, report given to TREE Lopez
[2021-04-02 20:11] LABS: Glucose Point of Care 200 mg/dL (70-110)
[2021-04-02] MEDS: nortriptyline 25 mg Capsule PO (20:36)
[2021-04-02] MEDS: atorvastatin 40 mg Tablet 80 MG PO (20:36)
[2021-04-02] MEDS: ropinirole 0.25 mg Tablet PO (20:36)
[2021-04-02] MEDS: gabapentin 300 mg Capsule 600 MG PO (20:37)
[2021-04-02] MEDS: insulin lispro 100 unit/1 mL SUBCUT (20:38)
[2021-04-02] MEDS: sodium chloride 0.9% 1,000 ML 100 ML IV (21:35)
[2021-04-03] VITALS (14 sets, daily range): BP systolic 79–163; BP diastolic 52–118; PULSE 60–83; RESP 18–20; TEMP 36.9; O2SAT 89–97
--- NOTE | 2021-04-03 02:40 | PC.NURSE ---
Shift Note Frequent safety and comfort rounds continue. Orders and/or nursing care completed as indicated. Patient monitored for response to intervention and treatment(s). Education provided includes oxygen safety. Patient and/or client representative verbalized understanding. Will continue to monitor.
[2021-04-03] MEDS: ipratropium-albuterol 3 mL Neb INHALATION ×5 (03:47→22:03)
--- NOTE | 2021-04-03 04:00 | PC.NURSE ---
Patient gave verbal consent to give medical information to daughter Sandy Woodward. Patient states this is her DPOA.
[2021-04-03 04:56] LABS: Basophils % 0.1 %; Eosinophils # 0.1 10^3/uL (0.0-0.8); Eosinophils % 0.7 %; Hematocrit 40.2 % (37.0-47.0); Hemoglobin 12.6 g/dL (11.5-15.3); Lymphocytes # 2.5 10^3/uL (0.8-4.8); Mean Corpuscular HGB Conc 31.3 g/dL (30.0-36.0); Mean Corpuscular Hemoglobin 31.1 pg (28.0-34.0); Mean Corpuscular Volume 99.3 fl (81-99); Mean Platelet Volume 9.4 fL (7.4-10.4); Monocytes # 0.7 10^3/uL (0.2-0.9); Monocytes % 7.3 %; Neutrophils # 6.33 10^3/uL (1.8-7.7); Neutrophils % 65.6 %; Nucleated Red Blood Cells % 0 %; Platelet Count 227 10^3/cmm (130-400); Red Blood Count 4.05 10^6/uL (4.1-5.3); Red Cell Distribution Width 15.2 % (12.1-15.1); White Blood Count 9.7 10^3/uL (4.0-10.0)
[2021-04-03 05:31] LABS: Anion Gap 11.4 (5-19); Blood Urea Nitrogen 28 mg/dL (8-23); Calcium 8.9 mg/dL (8.5-10.5); Carbon Dioxide 30 mmol/L (22-29); Chloride 102 mmol/L (98-107); Glucose 45 mg/dL (65-115); Osmolality Calculated 293 mOsm/kg (285-295); Potassium 3.4 mmol/L (3.5-5.1); Sodium 140 mmol/L (136-145)
[2021-04-03 05:54] LABS: Troponin T (5th) Once 20 ng/L (0-10)
[2021-04-03 06:22] LABS: NT Pro B Type Natriuretic Pept 382 pg/mL (0-125)
--- NOTE | 2021-04-03 07:00 | ECG_ITS ---
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 Measurements Intervals [place] Rate: 72 P: -57 CO: 123 QRS: 23 QRSD: 126 T: 0 QT: 364 QTc: 401 Interpretive Statements SINUS RHYTHM WITH OCCASIONAL VENTRICULAR PREMATURE COMPLEXES MODERATE INTRAVENTRICULAR CONDUCTION DELAY [110+ ms QRS DURATION] NONSPECIFIC ST & T-WAVE ABNORMALITY Compared to ECG 04/02/2021 12:29:16 Ventricular premature complex(es) now present Possible ischemia no longer present T-wave abnormality still present Electronically Signed On 04-03-2021 8:54:37 CDT by Kristan Odom M.D. [id number]
[2021-04-03 07:22] LABS: Glucose Point of Care 57 mg/dL (70-110)
[2021-04-03] MEDS: ropinirole 0.25 mg Tablet PO ×3 (09:15→20:07)
[2021-04-03] MEDS: multivitamin therapeutic Tablet 1 TAB PO (09:15)
[2021-04-03] MEDS: gabapentin 300 mg Capsule PO (09:16)
[2021-04-03] MEDS: PARoxetine 20 mg Tablet 10 MG PO (09:16)
[2021-04-03] MEDS: aspirin 81 mg EC Tablet PO (09:16)
[2021-04-03] MEDS: levothyroxine 88 mcg Tablet PO (09:16)
[2021-04-03] MEDS: buPROPion XL (24 HR) 150 mg Tablet PO ×2 (09:16→18:12)
[2021-04-03] MEDS: cholecalciferol (vitamin D3) 1,000 unit Tablet 1000 UNIT PO (09:16)
[2021-04-03] MEDS: rivaroxaban 10 mg Tablet PO (09:16)
[2021-04-03] MEDS: pantoprazole DR 40 mg Tablet PO (09:16)
[2021-04-03] MEDS: FUROsemide 40 mg Tablet PO (09:17)
[2021-04-03] MEDS: amlodipine 5 mg Tablet PO (09:44)
[2021-04-03 11:47] LABS: Glucose Point of Care 117 mg/dL (70-110)
--- NOTE | 2021-04-03 12:43 | PC.NURSE ---
Spoke with Dr ludwig with patient request for nicotine patch instructions received to order 7mg nicotine patch q24H
--- NOTE | 2021-04-03 12:44 | PC.NURSE ---
Dr Thomas at bedside for assessment and discussion of plan of care instructions received to obtain stoop samples, restart amlodipine 5mg po daily order
--- NOTE | 2021-04-03 14:00 | ECG_ITS ---
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1950 Requested By: Roman Thomas Order Number: [id number] Josesito MD: KATARINA GARCIA Measurements Intervals [place] Rate: 68 P: -76 NV: 116 QRS: -7 QRSD: 117 T: 72 QT: 373 QTc: 398 Interpretive Statements Atrial fibrillation MODERATE INTRAVENTRICULAR CONDUCTION DELAY [110+ ms QRS DURATION] NONSPECIFIC ST & T-WAVE ABNORMALITY ABNORMAL RHYTHM ECG Compared to ECG 04/03/2021 07:32:08 Junctional rhythm now present Sinus rhythm no longer present Ventricular premature complex(es) no longer present T-wave abnormality still present Electronically Signed On 04-05-2021 0:18:59 CDT by KATARINA GARCIA [id number]
[2021-04-03] MEDS: nicotine 7 mg Patch 1 PATCH TRANSDERMA (14:10)
--- NOTE | 2021-04-03 15:05 | PM.PN ---
Subjective Subjective: Interval history: Patient was seen and examined this morning, she was alert oriented x3, currently having watery diarrhea. Medications: Reviewed: Yes Vitals/I&O/Wt Last Vital Signs Temp 98.4 F 04/03/21 03:47 Pulse 66 04/03/21 11:29 Resp 18 04/03/21 11:23 BP 152/70 04/03/21 08:00 Pulse Ox 93 04/03/21 11:23 04/03/21 04/03/21 04/03/21 06:59 14:59 22:59 Intake Total 795 / 1795 860 / 860 Output Total 125 / 125 Balance 795 / 1795 735 / 735 Weight last 48 hrs Weight 66.043 kg Weight 65.771 kg Physical Exam Const: COMMON NORMALS: patient oriented x3 HENMT: COMMON NORMALS: normocephalic and atraumatic HEAD & SCALP: normocephalic and atraumatic Resp: OTHER: Minimal B/L Wheezing, no ronchii, no rales Cardio: COMMON NORMALS: regular rate, regular rhythm, S1 normal heart sound present, S2 normal heart sound present, No gallops present (Cardio), No murmurs present (Cardio), No rub (Cardio) and Peripheral pulses 2+ throughout RATE: regular rate RHYTHM: regular rhythm HEART SOUNDS: S1 normal heart sound present and S2 normal heart sound present PERIPHERAL PULSES: Peripheral pulses 2+ throughout GI: COMMON NORMALS: Normal to inspection, nondistended, normoactive bowel sounds present, Soft to palpation, non-tender, No hepatosplenomegaly present and no masses AUSCULTATION: Yes normoactive bowel sounds PALPATION: Yes Soft to palpation and Yes No hepatosplenomegaly present RECTAL EXAM: deferred Extremity: COMMON NORMALS: no clubbing, cyanosis or edema and no pedal edema Neuro: COMMON NORMALS: patient oriented x3 Urinary Catheter Management^: [facility]: Cath Placed During This Visit: yes Urinary Catheter Date of Insertion: 04/03/21 Urinary Catheter Time of Insertion: 14:15 Data : 04/03/21 03:45 04/03/21 03:45 Micro: Microbiology 04/02/21 23:40 C.difficile Toxin B Gene (PCR) - Final Stool - Stool Aspirate A&P Assessment and plan (1) Near syncope: Patient came in with near syncopal episode: Possibly secondary to subclavian steal syndrome, junctional bradycardia. Has resolved: Currently she has sinus rhythm with occasional PVCs. We will continue to hold beta-blockers for now. Continue to correct electrolyte abnormalities. s/p 500 cc NS Orthostatic vitals Neuro check q4 hours If needed dopamine drip Monitor EKG Telemetry. Cardiology consult Status: Acute (2) Acute on chronic respiratory failure with hypoxia and hypercapnia: Hypercapnic respiratory failure secondary to COPD exacerbation: Duo nebs BIPAP. Monitor ABG Status: Acute (3) Diarrhea: Stool C. difficile is negative Follow stool studies Status: Acute (4) Junctional bradycardia: Status: Acute (5) HTN (hypertension): Continue amlodipine 5 mg p.o. daily. Continue Imdur 120 mg po daily Status: Acute (6) Diabetes: Levemir 40 units subcu at bedtime Low-dose sliding scale insulin Carbohydrate consistent Monitor fingerstick Status: Acute (7) CAD (coronary artery disease): Status: Acute (8) Carotid stenosis: Status: Acute Qualifiers: Laterality: bilateral Qualified Code(s): I65.23 - Occlusion and stenosis of bilateral carotid arteries (9) Aortic valve mass: Not a candidate for surgery Continue Xarelto Status: Acute (10) Hypothyroidism: Continue levothyroxine 88 mcg p.o. daily Status: Acute Attestations Medical Necessity Statement*: Patient needs to be in hospital for management of, severe diarrhea. Coding Level of Care Code Acute Electrical Parts Reconditioner for Chg Fwd Diagnoses Near syncope R55 Acute on chronic respiratory failure with hypoxia and hypercapnia J96.21; J96.22 Diarrhea R19.7 Junctional bradycardia R00.1 HTN (hypertension) I10 Diabetes E11.9 CAD (coronary artery disease) I25.10 Carotid stenosis I65.23 Laterality: bilateral Aortic valve mass I35.8 Hypothyroidism E03.9
[2021-04-03] MEDS: lidocaine 1% 5 ML in potassium chloride premix 100 ML 50 ML IV (16:00)
[2021-04-03 18:07] LABS: Glucose Point of Care 230 mg/dL (70-110)
[2021-04-03] MEDS: insulin lispro 100 unit/1 mL SUBCUT ×2 (18:12→21:01)
--- NOTE | 2021-04-03 19:24 | PC.NURSE ---
Shift Note Frequent safety and comfort rounds continue. Orders and/or nursing care completed as indicated. Patient monitored for response to intervention and treatment(s). Education provided includes plan of care Cauti. Patient and/or customer response representative verbalized understanding. Will continue to monitor.
[2021-04-03] MEDS: atorvastatin 40 mg Tablet 80 MG PO (20:07)
[2021-04-03] MEDS: gabapentin 300 mg Capsule 600 MG PO (20:07)
[2021-04-03] MEDS: nortriptyline 25 mg Capsule PO (20:07)
[2021-04-03 20:35] LABS: Glucose Point of Care 155 mg/dL (70-110)
[2021-04-04] VITALS (22 sets, daily range): BP systolic 116–164; BP diastolic 79–108; PULSE 74–109; RESP 17–26; TEMP 36.4–36.7; O2SAT 90–96
[2021-04-04] MEDS: ipratropium-albuterol 3 mL Neb INHALATION ×5 (00:17→21:31)
--- NOTE | 2021-04-04 02:44 | PC.NURSE ---
Patient wore Bipap for one hour. Patient states, I'm not putting that damn thing on again. I'm sorry I really tried to wear it.
[2021-04-04 06:13] LABS: Glucose Point of Care 111 mg/dL (70-110)
[2021-04-04 06:56] LABS: Basophils % 0.1 %; Eosinophils # 0.2 10^3/uL (0.0-0.8); Hematocrit 42.3 % (37.0-47.0); Hemoglobin 13.4 g/dL (11.5-15.3); Lymphocytes # 1.9 10^3/uL (0.8-4.8); Lymphocytes % 23.3 %; Mean Corpuscular HGB Conc 31.7 g/dL (30.0-36.0); Mean Corpuscular Hemoglobin 31.7 pg (28.0-34.0); Mean Platelet Volume 9.6 fL (7.4-10.4); Monocytes # 0.7 10^3/uL (0.2-0.9); Monocytes % 9.2 %; Neutrophils # 5.26 10^3/uL (1.8-7.7); Neutrophils % 65.2 %; Nucleated Red Blood Cells % 0 %; Platelet Count 201 10^3/cmm (130-400); Red Blood Count 4.23 10^6/uL (4.1-5.3); Red Cell Distribution Width 15.1 % (12.1-15.1); White Blood Count 8.1 10^3/uL (4.0-10.0)
[2021-04-04 07:16] LABS: Anion Gap 11.6 (5-19); Blood Urea Nitrogen 14 mg/dL (8-23); Calcium 8.7 mg/dL (8.5-10.5); Carbon Dioxide 30 mmol/L (22-29); Chloride 102 mmol/L (98-107); Creatinine Clr Calc Pharmacy 56.6733; Glucose 101 mg/dL (65-115); Magnesium 1.6 mg/dL (1.7-2.3); Osmolality Calculated 291 mOsm/kg (285-295); Potassium 3.6 mmol/L (3.5-5.1); Sodium 140 mmol/L (136-145)
[2021-04-04] MEDS: amlodipine 5 mg Tablet PO (08:34)
[2021-04-04] MEDS: gabapentin 300 mg Capsule PO (08:34)
[2021-04-04] MEDS: rivaroxaban 10 mg Tablet PO (08:34)
[2021-04-04] MEDS: levothyroxine 88 mcg Tablet PO (08:34)
[2021-04-04] MEDS: cholecalciferol (vitamin D3) 1,000 unit Tablet 1000 UNIT PO (08:34)
[2021-04-04] MEDS: buPROPion XL (24 HR) 150 mg Tablet PO ×2 (08:34→18:26)
[2021-04-04] MEDS: ropinirole 0.25 mg Tablet PO ×3 (08:34→22:01)
[2021-04-04] MEDS: PARoxetine 20 mg Tablet 10 MG PO (08:34)
[2021-04-04] MEDS: multivitamin therapeutic Tablet 1 TAB PO (08:34)
[2021-04-04] MEDS: pantoprazole DR 40 mg Tablet PO (08:34)
[2021-04-04] MEDS: aspirin 81 mg EC Tablet PO (08:34)
[2021-04-04] MEDS: nicotine 7 mg Patch 1 PATCH TRANSDERMA (08:35)
[2021-04-04] MEDS: loperamide 2 mg Capsule PO ×2 (08:37→18:46)
[2021-04-04] MEDS: magnesium sulfate premix 2 GM/50 ML PIGGYBACK IV (09:29)
[2021-04-04 11:50] LABS: Glucose Point of Care 175 mg/dL (70-110)
[2021-04-04] MEDS: insulin lispro 100 unit/1 mL SUBCUT ×3 (11:51→21:54)
--- NOTE | 2021-04-04 16:09 | P.PN_ITS ---
Subjective Subjective: Interval history: Patient was seen and examined this morning,diarrhea is improving.SOB has resolved, currently saturating well at her baseline oxygen requirement. Medications: Reviewed: Yes Vitals/I&O/Wt Last Vital Signs Temp 98.1 F 04/04/21 03:05 Pulse 94 04/04/21 14:12 Resp 17 04/04/21 14:03 BP 116/96 04/04/21 12:00 Pulse Ox 93 04/04/21 14:03 04/04/21 04/04/21 04/04/21 06:59 14:59 22:59 Intake Total 300 / 1623.333 290 / 290 Output Total 850 / 2025 700 / 700 Balance -550 / -401.667 -410 / -410 Weight last 48 hrs Weight 66.043 kg Physical Exam Const: COMMON NORMALS: patient oriented x3 HENMT: COMMON NORMALS: normocephalic and atraumatic HEAD & SCALP: normocephalic and atraumatic Resp: OTHER: Minimal B/L Wheezing, no ronchii, no rales Cardio: COMMON NORMALS: regular rate, regular rhythm, S1 normal heart sound present, S2 normal heart sound present, No gallops present (Cardio), No murmurs present (Cardio), No rub (Cardio) and Peripheral pulses 2+ throughout RATE: regular rate RHYTHM: regular rhythm HEART SOUNDS: S1 normal heart sound present and S2 normal heart sound present PERIPHERAL PULSES: Peripheral pulses 2+ throughout GI: COMMON NORMALS: Normal to inspection, nondistended, normoactive bowel sounds present, Soft to palpation, non-tender, No hepatosplenomegaly present and no masses AUSCULTATION: Yes normoactive bowel sounds PALPATION: Yes Soft to palpation and Yes No hepatosplenomegaly present RECTAL EXAM: deferred Extremity: COMMON NORMALS: no clubbing, cyanosis or edema and no pedal edema Neuro: COMMON NORMALS: patient oriented x3 Urinary Catheter Management^: [facility]: Cath Placed During This Visit: yes Reason for Continuing Indwelling Catheter: Acute Urinary Retention or Obstruction Urinary Catheter Date of Insertion: 04/03/21 Urinary Catheter Time of Insertion: 14:15 Data : 04/04/21 05:19 04/04/21 05:19 Micro: Microbiology 04/04/21 04:00 Stool Lactoferrin - Final Stool - Stool Aspirate Enteric Pathogens (PCR) - Final Parasite Antigen Panel - Final A&P Assessment and plan (1) Near syncope: Patient came in with near syncopal episode: Possibly secondary to subclavian steal syndrome, junctional bradycardia. Has resolved: Currently she has sinus rhythm with occasional PVCs. Initially metoprolol tartrate 25 mg every 12 hours Daily was on hold was restarted on 04/04 at a lower dose of 12.5 mg BID. Continue to correct electrolyte abnormalities. s/p 500 cc NS Neuro check q4 hours Monitor EKG Telemetry Status: Acute (2) Acute on chronic respiratory failure with hypoxia and hypercapnia: Hypercapnic respiratory failure secondary to COPD exacerbation: Duo nebs BIPAP. Monitor ABG Status: Acute (3) Diarrhea: Improving: Stool C. difficile is negative. Follow stool studies Status: Acute (4) Junctional bradycardia: RESOLVED. Status: Acute (5) HTN (hypertension): Continue amlodipine 5 mg p.o. daily. Continue Imdur 120 mg po daily Status: Acute (6) Diabetes: Levemir 10 units subcu at bedtime Low-dose sliding scale insulin Carbohydrate consistent Monitor fingerstick Status: Acute (7) CAD (coronary artery disease): Status: Acute (8) Carotid stenosis: Status: Acute Qualifiers: Laterality: bilateral Qualified Code(s): I65.23 - Occlusion and stenosis of bilateral carotid arteries (9) Aortic valve mass: Not a candidate for surgery Continue Xarelto Status: Acute (10) Hypothyroidism: Continue levothyroxine 88 mcg p.o. daily Status: Acute Additional A&P Information HFpEF : Currently compensated,. She is on lasix 40 mg po BID at home.Currently on hold. DVT PPX: Not needed as she is on xaralto,will cover for it. Attestations Medical Necessity Statement*: Patient needs to be in hospital for diarrhea. Anticipated discharge in next 24hrs. Coding Level of Care Code Acute Administrative Program Specialist for Chg Fwd Diagnoses Near syncope R55 Acute on chronic respiratory failure with hypoxia and hypercapnia J96.21; J96.22 Diarrhea R19.7 Junctional bradycardia R00.1 HTN (hypertension) I10 Diabetes E11.9 CAD (coronary artery disease) I25.10 Carotid stenosis I65.23 Laterality: bilateral Aortic valve mass I35.8 Hypothyroidism E03.9
[2021-04-04 18:41] LABS: Glucose Point of Care 288 mg/dL (70-110)
[2021-04-04 20:30] LABS: Glucose Point of Care 348 mg/dL (70-110)
[2021-04-04] MEDS: gabapentin 300 mg Capsule 600 MG PO (21:58)
[2021-04-04] MEDS: nortriptyline 25 mg Capsule PO (21:59)
[2021-04-04] MEDS: metoprolol tartrate 25 mg Tablet 12.5 MG PO (21:59)
[2021-04-04] MEDS: atorvastatin 40 mg Tablet 80 MG PO (22:00)
[2021-04-05] VITALS (15 sets, daily range): BP systolic 152–181; BP diastolic 75–94; PULSE 70–79; RESP 17–18; TEMP 36.6–36.9; O2SAT 85–94
[2021-04-05] MEDS: ipratropium-albuterol 3 mL Neb INHALATION ×3 (00:08→07:39)
[2021-04-05] MEDS: loperamide 2 mg Capsule PO (03:54)
[2021-04-05 04:50] LABS: Basophils % 0.3 %; Eosinophils # 0.2 10^3/uL (0.0-0.8); Eosinophils % 2.7 %; Hematocrit 42.4 % (37.0-47.0); Hemoglobin 13.5 g/dL (11.5-15.3); Lymphocytes # 1.6 10^3/uL (0.8-4.8); Lymphocytes % 22.9 %; Mean Corpuscular HGB Conc 31.8 g/dL (30.0-36.0); Mean Corpuscular Hemoglobin 30.8 pg (28.0-34.0); Mean Corpuscular Volume 96.8 fl (81-99); Mean Platelet Volume 9.4 fL (7.4-10.4); Monocytes # 0.7 10^3/uL (0.2-0.9); Monocytes % 9.7 %; Neutrophils % 64.1 %; Nucleated Red Blood Cells % 0 %; Platelet Count 206 10^3/cmm (130-400); Red Blood Count 4.38 10^6/uL (4.1-5.3); Red Cell Distribution Width 14.7 % (12.1-15.1)
[2021-04-05 05:19] LABS: Anion Gap 10.6 (5-19); Blood Urea Nitrogen 12 mg/dL (8-23); Calcium 8.7 mg/dL (8.5-10.5); Carbon Dioxide 30 mmol/L (22-29); Chloride 100 mmol/L (98-107); Creatinine Clr Calc Pharmacy 56.6733; Glucose 81 mg/dL (65-115); Magnesium 1.9 mg/dL (1.7-2.3); Osmolality Calculated 283 mOsm/kg (285-295); Potassium 3.6 mmol/L (3.5-5.1); Sodium 137 mmol/L (136-145)
[2021-04-05 06:44] LABS: Glucose Point of Care 104 mg/dL (70-110)
[2021-04-05] MEDS: PARoxetine 20 mg Tablet 10 MG PO (08:21)
[2021-04-05] MEDS: aspirin 81 mg EC Tablet PO (08:21)
[2021-04-05] MEDS: metoprolol tartrate 25 mg Tablet 12.5 MG PO (08:22)
[2021-04-05] MEDS: amlodipine 5 mg Tablet PO (08:22)
[2021-04-05] MEDS: gabapentin 300 mg Capsule PO (08:22)
[2021-04-05] MEDS: multivitamin therapeutic Tablet 1 TAB PO (08:22)
[2021-04-05] MEDS: levothyroxine 88 mcg Tablet PO (08:22)
[2021-04-05] MEDS: cholecalciferol (vitamin D3) 1,000 unit Tablet 1000 UNIT PO (08:22)
[2021-04-05] MEDS: buPROPion XL (24 HR) 150 mg Tablet PO (08:22)
[2021-04-05] MEDS: nicotine 7 mg Patch 1 PATCH TRANSDERMA (08:22)
[2021-04-05] MEDS: ropinirole 0.25 mg Tablet PO ×2 (08:22→14:21)
[2021-04-05] MEDS: pantoprazole DR 40 mg Tablet PO (08:22)
[2021-04-05] MEDS: rivaroxaban 10 mg Tablet PO (08:22)
--- NOTE | 2021-04-05 08:45 | PC.SOCIAL ---
IMM Update Pg. 2 of IMM updated and reviewed with patient, who verbalized understanding. Copy provided.
[2021-04-05 10:43] LABS: Glucose Point of Care 173 mg/dL (70-110)
[2021-04-05] MEDS: insulin lispro 100 unit/1 mL SUBCUT (11:29)
--- NOTE | 2021-04-05 13:02 | PM.DCS ---
Discharge Providers Date of Admission: 04/02/21 16:40 Date of Discharge: April 05, 2021 Attending Provider at Admission: Roman Thomas MD Attending Provider at Discharge: Clinton Santana MD Primary Care Provider: Mary Diaz Diagnoses at Discharge Discharge Diagnosis (1) Near syncope: Status: Acute (2) Acute on chronic respiratory failure with hypoxia and hypercapnia: Status: Acute (3) Diarrhea: Status: Acute (4) Junctional bradycardia: Status: Acute (5) HTN (hypertension): Status: Acute (6) Diabetes: Status: Acute (7) CAD (coronary artery disease): Status: Acute (8) Carotid stenosis: Status: Acute Qualifiers: Laterality: bilateral Qualified Code(s): I65.23 - Occlusion and stenosis of bilateral carotid arteries (9) Aortic valve mass: Status: Acute (10) Hypothyroidism: Status: Acute Reason for Visit Reason for Visit: SYNCOPE, HYPERGLYCEMIA Hospital Course Hospital Course Ramandeep Woodward is a 70 year old female with past medical history of CAD s/p CABG x 2 in , h/o stroke in 2016 with residual right sided weakness and 2018 and TIA's x 3, left carotid stent in 2008 and 2014, subclavian vein stenosis, diastolic CHF anemia s/p EGD and colonoscopy (colitis) recently, HTN, DM-2, HLD, advanced COPD current smoker,, h/o seizure,, known B/L carotid artery stenosis follows up with vascular surgeon in [place], diabetic neuropathy, smoking and fibromyalgia. 4 x 0.4 cm mass on aortic valve not a candidate for SX currently on Xarelto who presents [facility] due to 2 syncopal episode Patient was admitted to [facility] for syncopal episode, likely multifactorial from junctional bradycardia on admission and subclavian steal syndrome from bilateral ICA stenosis. Patient's orthostats were unremarkable, no recurrent syncopal episodes, no recurrent episodes of bradycardia, ambulating without significant symptomatology. On discharge her metoprolol has been discontinued. Her dose of Imdur has been decreased. I have discharged her on event monitor with follow-up with cardiology as outpatient. For her bilateral ICA stenosis, CTA of the head and neck showed CT head and neck: Near complete occlusion LEFT ICA. String sign remains through the cervical portion of the carotid artery through the cavernous sinuses. RIGHT ICA stenosis greater than 70% with additional multi focal areas of stenoses throughout the cervical carotid artery. Significant stenosis and calcified plaque involving the RIGHT innominate artery.Origin LEFT subclavian artery stenosis at least 60%. Patient has extensive calcified plaque and intimal thickening throughout the arteries of the chest, neck and head. -Patient advised me that she follows up with vascular surgeon in [place], they know that she has bilateral carotid artery stenosis, known near complete left ICA, and significant right ICA stenosis, but she tells me that she is not a candidate for surgery given her risk factors and surgical risk, that is why she is on Xarelto she tells me -Given above findings, advised her to remain compliant on aspirin, statin, Xarelto -I have strongly encouraged her to stop smoking, but she tells me that she has been smoking since she is 10 years old and has no plans on quitting -Follow-up with vascular surgery in [place] in the next few weeks -If she has recurrent syncopal episodes or strokelike symptoms go to the emergency room. Patient was also found to have acute hypoxia, respiratory failure secondary to COPD exacerbation, managed with duo nebs, BiPAP, and clinically monitored, patient clinically improved. Discharged on room air, Advair, her home inhalers, instructions to stop smoking follow-up with primary care provider in 1 to 2 weeks Physical Exam Const: COMMON NORMALS: no acute distress and patient oriented x3 Resp: COMMON NORMALS: normal respiratory effort, No retractions, No use of accessory muscles and clear to auscultation bilaterally AUSCULTATION: clear to auscultation bilaterally Cardio: COMMON NORMALS: regular rate, regular rhythm, S1 normal heart sound present and S2 normal heart sound present RATE: regular rate RHYTHM: regular rhythm HEART SOUNDS: S1 normal heart sound present and S2 normal heart sound present GI: COMMON NORMALS: Normal to inspection, nondistended, normoactive bowel sounds present, Soft to palpation and non-tender PALPATION: Yes Soft to palpation Extremity: COMMON NORMALS: no pedal edema Neuro: COMMON NORMALS: patient oriented x3 Psych: COMMON NORMALS: mental status grossly normal Urinary Catheter Management^: [facility]: Cath Placed During This Visit: yes Reason for Continuing Indwelling Catheter: Acute Urinary Retention or Obstruction Urinary Catheter Date of Insertion: 04/03/21 Urinary Catheter Time of Insertion: 14:15 Discharge Data Data Completed and Pending: Completed Studies During Hospitalization Category Date Time Status CT angio headneck * [id number] Stat Cat Scan 04/02/21 14:25 Completed XR chest 1V [place]add [place] [id number] Stat Exams 04/02/21 12:29 [place] [id number] Stat Ultrasound 04/02/21 13:28 Completed Pending at discharge Category Date Time Status Immunochemical Fe radha OCB Routine Lab 04/04/21 04:40 Ordered Labs from last 24 hours 04/05/21 04/05/21 04/05/21 10:35 06:26 03:51 WBC RBC Hgb Hct MCV MCH MCHC RDW Plt Count MPV Neut % (Auto) Lymph % (Auto) [place] % (Auto) Eos % (Auto) Baso % (Auto) Neut # (Auto) Lymph # (Auto) [place] # (Auto) Eos # (Auto) Baso # (Auto) Nucleated RBC % (a uto) Nucleated RBCs # Sodium 137 Potassium 3.6 Chloride 100 Carbon Dioxide 30 H Anion Gap 10.6 BUN 12 Creatinine 0.6 GFR Calculation Not Reportable Glucose 81 POC Glucose 173 H 104 Calculated Osmolal ity 283 L Calcium 8.7 Magnesium 1.9 04/05/21 04/04/21 04/04/21 03:51 19:22 18:30 WBC 7.0 RBC 4.38 Hgb 13.5 Hct 42.4 MCV 96.8 MCH 30.8 MCHC 31.8 RDW 14.7 Plt Count 206 MPV 9.4 Neut % (Auto) 64.1 Lymph % (Auto) 22.9 [place] % (Auto) 9.7 Eos % (Auto) 2.7 Baso % (Auto) 0.3 Neut # (Auto) 4.50 Lymph # (Auto) 1.6 [place] # (Auto) 0.7 Eos # (Auto) 0.2 Baso # (Auto) 0.0 Nucleated RBC % (a uto) 0 Nucleated RBCs # 0.0 Sodium Potassium Chloride Carbon Dioxide Anion Gap BUN Creatinine GFR Calculation Glucose POC Glucose 348 H 288 H Calculated Osmolal ity Calcium Magnesium Vitals: Last Vital Signs Temp 98.5 F 04/05/21 10:38 Pulse 70 04/05/21 10:38 Resp 18 04/05/21 10:38 BP 172/75 04/05/21 10:38 Pulse Ox 92 04/05/21 10:38 Discharge Plan Discharge Patient Disposition: Home Condition: Stable Prescriptions: New fluticasone propion-salmeterol [Advair Diskus] 250-50 mcg/dose blister with device 1 inh inhalation BID Qty: 60 RF: 0 Continued aspirin [Aspir-81] 81 mg tablet,delayed release (DR/EC) 81 mg PO DAILY RF: 0 atorvastatin 80 mg tablet 80 mg PO BEDTIME RF: 0 bupropion HCl 150 mg tablet extended release 24 hr 150 mg PO BID RF: 0 Farxiga 5 mg tablet 5 mg PO DAILY RF: 0 furosemide 40 mg tablet 40 mg PO BID RF: 0 gabapentin 300 mg capsule See Rx Instructions .ROUTE .COMPLEX RF: 0 levetiracetam 500 mg tablet 500 mg PO BID RF: 0 losartan 100 mg tablet 100 mg PO DAILY RF: 0 multivitamin Capsule 1 cap PO DAILY RF: 0 nitroglycerin 0.4 mg tablet, sublingual 0.4 mg SUBLINGUAL Q5M PRN (Reason: Chest Pain) RF: 0 nortriptyline 25 mg capsule 25 mg PO BEDTIME RF: 0 paroxetine HCl 10 mg tablet 10 mg PO DAILY RF: 0 potassium chloride 20 mEq tablet extended release 20 meq PO DAILY RF: 0 ropinirole 0.25 mg tablet 0.25 mg PO TID RF: 0 Xarelto 10 mg tablet 10 mg PO DAILY RF: 0 albuterol sulfate 2.5 mg /3 mL (0.083 %) Solution For Nebulization 2.5 mg INHALATION TID PRN (Reason: Shortness Of Breath) RF: 0 levothyroxine 88 mcg Tablet 88 mcg PO DAILY RF: 0 hyoscyamine sulfate 0.125 mg Tablet 0.125 mg PO Q6H PRN (Reason: stomach cramps) RF: 0 omeprazole 20 mg Capsule,Delayed Release(Dr/Ec) 20 mg PO DAILY RF: 0 albuterol sulfate 90 mcg/actuation Hfa Aerosol Inhaler 2 puff INHALATION Q4H PRN (Reason: Shortness Of Breath) RF: 0 Vitamin D3 25 mcg (1,000 unit) Tablet 25 mcg PO DAILY RF: 0 Spiriva Respimat 2.5 mcg/actuation Mist 2 puff INHALATION DAILY RF: 0 Changed isosorbide mononitrate 120 mg tablet extended release 24 hr 60 mg PO DAILY Qty: 0 RF: 0 Levemir FlexTouch U-100 Insuln 100 unit/mL (3 mL) insulin pen 20 unit SUBCUT BEDTIME Qty: 0 RF: 0 amlodipine 5 mg Tablet 10 mg PO DAILY Qty: 0 RF: 0 Discontinued metoprolol tartrate 50 mg Tablet 25 mg PO BID RF: 0 Discharge Orders: Discharge Order (Routine); Ordered 04/05/21 Ordered By: Clinton Santana Other Ambulatory Orders: [place] cardiac event monitor (Routine) Timeframe: 1 Day Facility: [facility] - Location: Cardiac Diagnostic Laboratory Ordered By: Clinton Santana Referrals: Mary Diaz [Primary Care Provider] - 04/13/21 10:00 am (You have a hospital followup with Dr. Diaz at [facility] on April 13 at 10:00am) Kristan Odom MD [Physician] - 1 month Patient Instructions: Fluticasone/Salmeterol (By breathing) (Advair Diskus 100/50, Advair..., Opioid Safety Activity Restrictions/Additional Instructions: -If any recurrent syncopal episode please go to the emergency room -Please wear an event monitor -Follow-up with me in 1 month -Please follow-up with your vascular surgeon in the next few weeks -Please use aspirin, statin, Xarelto as prescribed -Monitor blood sugars carefully -Please stop smoking Discharge Attestations Time Spent in Discharge Care*: less than 30 min Quality Metrics Clinical Quality Measures During this hospital stay, did patient experience: None Coding Level of Care Code Acute Chg FW DC note Diagnoses Near syncope R55 Acute on chronic respiratory failure with hypoxia and hypercapnia J96.21; J96.22 Diarrhea R19.7 Junctional bradycardia R00.1 HTN (hypertension) I10 Diabetes E11.9 CAD (coronary artery disease) I25.10 Carotid stenosis I65.23 Laterality: bilateral Aortic valve mass I35.8 Hypothyroidism E03.9
[2021-04-05] MEDS: losartan 50 mg Tablet 100 MG PO (14:21)
--- NOTE | 2021-04-05 16:33 | PC.RESP ---
SMOKING CESSATION INFORMATION SENT TO PATIENT.
--- NOTE | 2021-04-06 07:11 | PC.OT ---
OT EVALUATION ORDERS RECEIVED. PATIENT DISCHARGED BEFORE EVALUATION COULD BE COMPLETED.
== END 2021-04-05 17:13 | disposition home or self-care (01) | DRG 190 ==
LOC: ER 16:57 → CSU 17:39
PROVIDERS: Admitting Provider Internal Medicine; Emergency Provider Family Medicine; PCP Internal Medicine; Visit Provider Family Medicine
DX: J44.1 Chronic obstructive pulmonary disease with (acute) exacerbation (principal); J96.22 Acute and chronic respiratory failure with hypercapnia; J96.21 Acute and chronic respiratory failure with hypoxia; I50.30 Unspecified diastolic (congestive) heart failure; I69.951 Hemiplegia and hemiparesis following unspecified cerebrovascular disease affecting right dominant side; G45.8 Other transient cerebral ischemic attacks and related syndromes; D64.9 Anemia, unspecified; I25.10 Atherosclerotic heart disease of native coronary artery without angina pectoris; Z95.1 Presence of aortocoronary bypass graft; E11.42 Type 2 diabetes mellitus with diabetic polyneuropathy; I11.0 Hypertensive heart disease with heart failure; E78.5 Hyperlipidemia, unspecified; F17.210 Nicotine dependence, cigarettes, uncomplicated; M79.7 Fibromyalgia; R00.1 Bradycardia, unspecified; I35.9 Nonrheumatic aortic valve disorder, unspecified; Z79.51 Long term (current) use of inhaled steroids; Z79.01 Long term (current) use of anticoagulants; Z79.82 Long term (current) use of aspirin
CPT/HCPCS: 36415; 36416; 36600; 51702; 70496; 70498; 71045; 80048; 80051; 81001; 82009; 82330; 82805; 82962; 83630; 83690; 83735; 83880; 84484; 85025; 87493; 87506; 93005; 93923; 94640; 94660; 96361; 96372; 96374; 96375; 97161; 97530; 99285; J1200; J1720; J1815; J2405; J3475; J3480; J7030; Q9967

== ENCOUNTER 2021-04-08 10:02 | Inpatient (IN) | payer MEDICARE, MEDICAID, SELFPAY ==
[2021-04-08] VITALS (7 sets, daily range): BP systolic 150–167; BP diastolic 64–70; PULSE 74–81; RESP 16–20; TEMP 36.7–36.9; O2SAT 82–94; BMI 25.6; BMI 25.5
--- NOTE | 2021-04-08 10:17 | XR_ITS ---
WS: [id number] Portable AP upright chest, 04/08/2021 Clinical Data: hypoxia Comparison: Portable chest, 04/02/2021 Findings: No nodules, masses or effusions are seen. The heart is normal. The pulmonary vascularity is not increased. No pneumonia or pneumothorax is seen. The aortic arch shows calcification and tortuos ity. Midline sternotomy sutures are seen. There are clips in the left supraclavicular region. Monitor leads are on the chest wall. XR/XR chest 1V portable [id number] Impression: Atherosclerosis.
--- NOTE | 2021-04-08 10:17 | ECG_ITS ---
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 Measurements Intervals [place] Rate: 77 P: -72 VT: 113 QRS: 41 QRSD: 116 T: 24 QT: 361 QTc: 409 Interpretive Statements SINUS RHYTHM WITH OCCASIONAL VENTRICULAR PREMATURE COMPLEXES LEFT VENTRICULAR HYPERTROPHY AND ST-T CHANGE [VOLTAGE CRITERIA PLUS ST/T ABNORMALITY] Compared to ECG 04/03/2021 15:18:23 Ventricular premature complex(es) now present Left ventricular hypertrophy now present ST (T wave) deviation now present Atrial fibrillation no longer present Intraventricular conduction delay no longer present T-wave abnormality no longer present Electronically Signed On 04-08-2021 17:14:52 CDT by Balaji Pineda M.D. [id number]
--- NOTE | 2021-04-08 10:19 | W.ED.GIBLEED ---
Documented by User: YOLANDA Olsen 04/08/21 11:16 HPI - GI Bleed General: Chief complaint: GI Bleed Stated complaint: DIARRHEA X 1 WEEK, RECTAL BLEEDING Time Seen by Provider: 04/08/21 10:09 Source: patient and EMS Mode of arrival: EMS Limitations: no limitations History of Present Illness: HPI Narrative: Patient is a 70-year-old female with an extensive medical history consisting of CAD s/p CABG, CVA with residual right sided weakness, multiple TIAs, CHF, anemia, HTN, DM2, HLD, COPD (current smoker) and fibromyalgia here for complaints of diarrhea and possible GI bleed. Patient states she has had diarrhea over the past week (reports maximum of 3-4 stools in a 24-hour). She states her daughter told her her stools were black and was concerned for a possible GI bleed. Patient does take Xarelto and aspirin daily. She complains of mild abdominal pains. No nausea/vomiting. No history of GI bleeds. Noted to be hypoxic on RA upon arrival with sats at 86-88%. She has COPD but normally does not require oxygen. Recent hospitalization for hypercapnic respiratory failure and syncope. Associated symptoms: Reports abdominal pain; Denies chills, fever(s), nausea, rash or vomiting Review of Systems Const: Denies: fever(s), chills or body aches Card: Denies: chest pain Resp: Denies: dyspnea (does not complain of SOB but noted to be hypoxic) GI: Reports: abdominal pain, diarrhea and other (reporting she was told by daughter that her stools are black); Denies: nausea, vomiting or hematemesis Skin/Breast: Denies: rash PFSH ED PFSH: Medical History Anemia Aortic valve mass CAD (coronary artery disease) Carotid stenosis COPD (chronic obstructive pulmonary disease) Depression with anxiety Diabetes Diabetic neuropathy GERD (gastroesophageal reflux disease) History of ischemic colitis History of seizure HTN (hypertension) Hyperlipidemia Stroke, embolic TIA (transient ischemic attack) Surgical History History of colonoscopy Family History Other CHF (congestive heart failure) Social History Smoking and tobacco status: current every day smoker cigarettes Packs smoked per day: 1 Alcohol intake: former Physical Exam Const: COMMON NORMALS: no acute distress, patient oriented x3, no limitations and alert GENERAL APPEARANCE: cooperative ORIENTATION/CONSCIOUSNESS: Yes awake, Yes oriented to person, Yes oriented to place and Yes oriented to time OTHER: appears slightly drowsy Resp: COMMON NORMALS: normal respiratory effort and clear to auscultation bilaterally AUSCULTATION: clear to auscultation bilaterally Cardio: COMMON NORMALS: regular rate and regular rhythm RATE: regular rate RHYTHM: regular rhythm GI: COMMON NORMALS: Normal to inspection, nondistended, normoactive bowel sounds present, Soft to palpation, No hepatosplenomegaly present and no masses PALPATION: Yes Soft to palpation, Yes Tenderness to palpation present (GI) (mild-diffusely), No Guarding due to palpation present (GI), No Rigid due to palpation and Yes No hepatosplenomegaly present RECTAL EXAM: heme positive stool OTHER: patient with gross hematochezia noted on exam with a blood soaked brief; grossly positive hemoccult : COMMON NORMALS: Yes no CVA tenderness BLADDER/KIDNEY EXAM: Yes no CVA tenderness Back/Pelvis: COMMON NORMALS: no CVA tenderness Neuro: LEFTY COMA SCALE: document GCS findings [place] coma scale eye opening: Spontaneous [place] coma scale verbal response: Orientated [place] coma scale motor response: Obey commands [place] coma scale total score: 15 COMMON NORMALS: patient oriented x3 SENSORIUM/ORIENTATION: Yes alert, Yes oriented to person, Yes oriented to place and Yes oriented to time Skin: COMMON NORMALS: no rashes or lesions noted GENERAL SKIN EXAM: no rashes or lesions noted Course Vital Signs: Vital signs: Vital Signs Temperature 98.5 F 04/09/21 15:38 Pulse Rate 97 04/09/21 15:46 Respiratory Rate 18 04/09/21 15:46 Blood Pressure 145/73 04/09/21 15:38 Pulse Oximetry 92 04/09/21 15:46 MDM - GI Bleed MDM Narrative: Medical decision making narrative: Patient with gross hematochezia on exam. She is on xarelto/aspirin. H/H and vitals stable currently. Will transfer care to Dr. Mcguire as she will be an admit. Lab Data: Labs: Lab Results 04/08/21 04/08/21 04/08/21 10:15 10:15 10:15 WBC 8.7 10^3/uL 10^3/ uL (4.0-10.0) RBC 4.62 10^6/uL 10^6 /uL (4.1-5.3) Hgb 14.5 g/dL g/dL (11.5-15.3) Hct 44.7 % % (37.0-47.0) MCV 96.8 fl fl (81-99) MCH 31.4 pg pg (28.0-34.0) MCHC 32.4 g/dL g/dL (30.0-36.0) RDW 14.6 % % (12.1-15.1) Plt Count 235 10^3/cmm 10^3 /cmm (130-400) MPV 9.3 fL fL (7.4-10.4) Neut % (Auto) 79.3 % % Lymph % (Auto) 9.7 % % Meade % (Auto) 9.0 % % Eos % (Auto) 1.4 % % Baso % (Auto) 0.3 % % Neut # (Auto) 6.92 10^3/uL 10^3 /uL (1.8-7.7) Lymph # (Auto) 0.9 10^3/uL 10^3/ uL (0.8-4.8) Meade # (Auto) 0.8 10^3/uL 10^3/ uL (0.2-0.9) Eos # (Auto) 0.1 10^3/uL 10^3/ uL (0.0-0.8) Baso # (Auto) 0.0 10^3/uL 10^3/ uL (0.0-0.1) Nucleated RBC % (a uto) 0 % % Nucleated RBCs # 0.0 /100WBC /100W BC PT 13.00 SECONDS SEC ONDS (12.1-14.9) INR 0.95 (0.8-1.2) APTT 27.3 SECONDS SECO NDS (23.9-36.7) Specimen Type Sample Site ABG pH ABG pCO2 ABG pO2 ABG HCO3 ABG O2 Saturation ABG Base Excess Allan Test A-a O2 Gradient Hematocrit Hgb O2 Saturation Carboxyhemoglobin Methemoglobin Total Hemoglobin Ionized Calcium O2 Delivery Device O2 Liters/Min FiO2 [employer]ing Machinist ID Sodium 135 mmol/L L mmol /L (136-145) Potassium 3.9 mmol/L mmol/L (3.5-5.1) Chloride 97 mmol/L L mmol/ L (98-107) Carbon Dioxide 30 mmol/L H mmol/ L (22-29) Anion Gap 11.9 (5-19) BUN 14 mg/dL mg/dL (8-23) Creatinine 1.0 mg/dL H mg/dL (0.5-0.9) GFR Calculation Not Reportable Glucose 146 mg/dL H mg/dL (65-115) Calculated Osmolal ity 283 mOsm/kg L mOs m/kg (285-295) Lactate Calcium 9.0 mg/dL mg/dL (8.5-10.5) Total Bilirubin 0.6 mg/dL mg/dL (0.15-1.2) AST 212 U/L H U/L (0-32) ALT 172 U/L H U/L (0-33) Alkaline Phosphata se 201 IU/L H IU/L (35-105) Total Protein 6.4 g/dL L g/dL (6.6-8.7) Albumin 3.5 g/dL g/dL (3.5-5.2) Globulin 2.9 g/dL g/dL (1.3-4.6) TSH Urine Color Urine Appearance Urine pH Ur Specific Gravit y Urine Protein Urine Glucose (UA) Urine Ketones Urine Blood Urine Nitrate Urine Bilirubin Urine Urobilinogen Ur Leukocyte Nelsy ase Urine RBC Urine WBC Ur Squamous Epith Cells Ur Transition Epit h Cell Amorphous Sediment Urine Bacteria Hyaline Casts Coarse Granular Ca sts Ur Oval Fat Bodies Hepatitis A IgM Ab Hep Bs Antigen Hep B Core IgM Ab Hepatitis C Antibo dy 04/08/21 04/08/21 04/08/21 10:15 10:15 10:15 WBC RBC Hgb Hct MCV MCH MCHC RDW Plt Count MPV Neut % (Auto) Lymph % (Auto) Meade % (Auto) Eos % (Auto) Baso % (Auto) Neut # (Auto) Lymph # (Auto) Meade # (Auto) Eos # (Auto) Baso # (Auto) Nucleated RBC % (a uto) Nucleated RBCs # PT INR APTT Specimen Type Sample Site ABG pH ABG pCO2 ABG pO2 ABG HCO3 ABG O2 Saturation ABG Base Excess Allan Test A-a O2 Gradient Hematocrit Hgb O2 Saturation Carboxyhemoglobin Methemoglobin Total Hemoglobin Ionized Calcium O2 Delivery Device O2 Liters/Min FiO2 [employer] Machinist ID Sodium Potassium Chloride Carbon Dioxide Anion Gap BUN Creatinine GFR Calculation Glucose Calculated Osmolal ity Lactate 0.7 mmol/L mmol/L (0.5-2.2) Calcium Total Bilirubin AST ALT Alkaline Phosphata se Total Protein Albumin Globulin TSH 2.21 uIU/mL uIU/m L (0.27-4.20) Urine Color Urine Appearance Urine pH Ur Specific Gravit y Urine Protein Urine Glucose (UA) Urine Ketones Urine Blood Urine Nitrate Urine Bilirubin Urine Urobilinogen Ur Leukocyte Nelsy ase Urine RBC Urine WBC Ur Squamous Epith Cells Ur Transition Epit h Cell Amorphous Sediment Urine Bacteria Hyaline Casts Coarse Granular Ca sts Ur Oval Fat Bodies Hepatitis A IgM Ab Non-reactive (Nonreactive) Hep Bs Antigen Non-reactive (Nonreactive) Hep B Core IgM Ab Non-reactive (Nonreactive) Hepatitis C Antibo dy Non-reactive (Nonreactive) 04/08/21 04/08/21 10:37 11:10 WBC RBC Hgb Hct MCV MCH MCHC RDW Plt Count MPV Neut % (Auto) Lymph % (Auto) Meade % (Auto) Eos % (Auto) Baso % (Auto) Neut # (Auto) Lymph # (Auto) Meade # (Auto) Eos # (Auto) Baso # (Auto) Nucleated RBC % (a uto) Nucleated RBCs # PT INR APTT Specimen Type Arterial Sample Site Radial, right ABG pH 7.33 L (7.35-7.45) ABG pCO2 56.9 mmHg H mmHg (35-45) ABG pO2 61.2 mmHg L mmHg (80.0-100.0) ABG HCO3 30.0 mmol/L H mmo l/L (22-26) ABG O2 Saturation 86.3 ABG Base Excess 2.7 mmol/L H mmol /L (-2.0-2.0) Allan Test Pos A-a O2 Gradient 13.1 mmHg H mmHg (5-10) Hematocrit 41.7 % % (37-47) Hgb O2 Saturation 81.7 % L % (95-100) Carboxyhemoglobin 4.5 %THgb %THgb (0.4-20.1) Methemoglobin 0.8 % % (0.4-1.5) Total Hemoglobin 13.6 g/dL g/dL (12-16) Ionized Calcium 1.3 mmol/L mmol/L (1.1-1.4) O2 Delivery Device Nc O2 Liters/Min 3.0 % % FiO2 32.0 % % [employer]ing Machinist ID Cak Sodium 137.0 mmol/L mmol /L (131-143) Potassium 3.6 mmol/L mmol/L (3.5-5.0) Chloride Carbon Dioxide Anion Gap BUN Creatinine GFR Calculation Glucose 158.0 mg/dL H mg/ dL (70-115) Calculated Osmolal ity Lactate Calcium Total Bilirubin AST ALT Alkaline Phosphata se Total Protein Albumin Globulin TSH Urine Color Straw (Yellow) Urine Appearance Hazy A (CLEAR) Urine pH 5 (5-7) Ur Specific Gravit y 1.002 L (1.005-1.030) Urine Protein Neg (Negative) Urine Glucose (UA) 2+ H (Normal) Urine Ketones 1+ H (Negative) Urine Blood Neg (Negative) Urine Nitrate Negative (Negative) Urine Bilirubin Neg (Negative) Urine Urobilinogen Norm mg/dL mg/dL (Negative) Ur Leukocyte Nelsy ase Negative (Negative) Urine RBC Not Reportable Urine WBC 5-10 /hpf H /hpf (0-5) Ur Squamous Epith Cells 0-4 /hpf H /hpf (0-5) Ur Transition Epit h Cell 0-4 /hpf /hpf Amorphous Sediment Not Reportable Urine Bacteria 4+ /hpf H /hpf (NONE) Hyaline Casts 0-4 /lpf H /lpf Coarse Granular Ca sts 0-4 /lpf H /lpf Ur Oval Fat Bodies None /hpf /hpf Hepatitis A IgM Ab Hep Bs Antigen Hep B Core IgM Ab Hepatitis C Antibo dy Discharge Plan Discharge Patient Disposition: Admitted As Inpatient Admit Provider: Haresh Stern Clinical Impression: Hematochezia, History of ischemic colitis, Transaminitis, COPD (chronic obstructive pulmonary disease), Diabetes, Aortic valve mass, Colitis Condition: Stable Coding Level of Care Code ED Refinery Operator Reforming Unit for Chg Fwd Exam Detailed Documented by User: Gerald Mcguire DO 04/09/21 17:59 HPI - GI Bleed General: Chief complaint: GI Bleed Stated complaint: DIARRHEA X 1 WEEK, RECTAL BLEEDING Time Seen by Provider: 04/08/21 10:09 History of Present Illness: HPI Narrative: Patient initially seen by midlevel. Reviewed chart and interviewed patient 68-year-old female with complaints of bloody stools she is on anticoagulant. She has had colitis in the past. She has had dark stools with mixed with blood. Initially began with diarrhea now was progressed to like bloody stools over the last week. MD complaint: melena and gross hematochezia Onset (ago): hour(s) Severity: mild Relieving factors: none Exacerbating factors: none Associated symptoms: Reports malaise, nausea, poor appetite and weakness; Denies abdominal pain, chills, easy bruising, epistaxis, fever(s), headache(s), other bleeding, rash, syncope or vomiting Review of Systems Const: Reports: malaise; Denies: fever(s) or chills ENMT: Denies: epistaxis Card: Denies: syncope Resp: Denies: dyspnea, productive cough or non-productive cough GI: Reports: nausea; Denies: abdominal pain or vomiting : Denies: flank pain, difficulty voiding, dysuria, urinary frequency or urinary urgency Skin/Breast: Denies: rash Neuro: Denies: headache(s) James/Lymph: Denies: easy bruising PFSH ED PFSH: Medical History Anemia Aortic valve mass CAD (coronary artery disease) Carotid stenosis COPD (chronic obstructive pulmonary disease) Depression with anxiety Diabetes Diabetic neuropathy GERD (gastroesophageal reflux disease) History of ischemic colitis History of seizure HTN (hypertension) Hyperlipidemia Stroke, embolic TIA (transient ischemic attack) Surgical History History of colonoscopy Family History Other CHF (congestive heart failure) Social History Smoking and tobacco status: current every day smoker cigarettes Packs smoked per day: 1 Alcohol intake: former Physical Exam Const: COMMON NORMALS: no acute distress GENERAL APPEARANCE: cooperative and comfortable ORIENTATION/CONSCIOUSNESS: Yes awake, Yes oriented to person, Yes oriented to place and Yes oriented to time HENMT: COMMON NORMALS: normocephalic, atraumatic and hearing grossly normal bilaterally HEAD & SCALP: normocephalic and atraumatic Neck/C-Spine: COMMON NORMALS: no JVD Resp: COMMON NORMALS: normal respiratory effort, No retractions, No use of accessory muscles and clear to auscultation bilaterally AUSCULTATION: clear to auscultation bilaterally Cardio: COMMON NORMALS: no JVD, regular rate, regular rhythm and No murmurs present (Cardio) RATE: regular rate RHYTHM: regular rhythm GI: COMMON NORMALS: No hepatosplenomegaly present AUSCULTATION: Yes normoactive bowel sounds PALPATION: Yes Tenderness to palpation present (GI) (Epigastric, right side abdomen), No Guarding due to palpation present (GI) and Yes No hepatosplenomegaly present RECTAL EXAM: heme positive stool Extremity: COMMON NORMALS: normal to inspection, capillary refill normal, no clubbing, cyanosis or edema, no calf tenderness and no pedal edema Neuro: SENSORIUM/ORIENTATION: Yes oriented to person, Yes oriented to place and Yes oriented to time Skin: COMMON NORMALS: no rashes or lesions noted GENERAL SKIN EXAM: no rashes or lesions noted Course Vital Signs: Vital signs: Vital Signs Temperature 98.5 F 04/09/21 15:38 Pulse Rate 97 04/09/21 15:46 Respiratory Rate 18 04/09/21 15:46 Blood Pressure 145/73 04/09/21 15:38 Pulse Oximetry 92 04/09/21 15:46 MDM - GI Bleed MDM Narrative: Medical decision making narrative: Discussed Dr. Stern orders written. Lab Data: Labs: Lab Results 04/08/21 04/08/21 04/08/21 10:15 10:15 10:15 WBC 8.7 10^3/uL 10^3/ uL (4.0-10.0) RBC 4.62 10^6/uL 10^6 /uL (4.1-5.3) Hgb 14.5 g/dL g/dL (11.5-15.3) Hct 44.7 % % (37.0-47.0) MCV 96.8 fl fl (81-99) MCH 31.4 pg pg (28.0-34.0) MCHC 32.4 g/dL g/dL (30.0-36.0) RDW 14.6 % % (12.1-15.1) Plt Count 235 10^3/cmm 10^3 /cmm (130-400) MPV 9.3 fL fL (7.4-10.4) Neut % (Auto) 79.3 % % Lymph % (Auto) 9.7 % % Meade % (Auto) 9.0 % % Eos % (Auto) 1.4 % % Baso % (Auto) 0.3 % % Neut # (Auto) 6.92 10^3/uL 10^3 /uL (1.8-7.7) Lymph # (Auto) 0.9 10^3/uL 10^3/ uL (0.8-4.8) Meade # (Auto) 0.8 10^3/uL 10^3/ uL (0.2-0.9) Eos # (Auto) 0.1 10^3/uL 10^3/ uL (0.0-0.8) Baso # (Auto) 0.0 10^3/uL 10^3/ uL (0.0-0.1) Nucleated RBC % (a uto) 0 % % Nucleated RBCs # 0.0 /100WBC /100W BC PT 13.00 SECONDS SEC ONDS (12.1-14.9) INR 0.95 (0.8-1.2) APTT 27.3 SECONDS SECO NDS (23.9-36.7) Specimen Type Sample Site ABG pH ABG pCO2 ABG pO2 ABG HCO3 ABG O2 Saturation ABG Base Excess Allan Test A-a O2 Gradient Hematocrit Hgb O2 Saturation Carboxyhemoglobin Methemoglobin Total Hemoglobin Ionized Calcium O2 Delivery Device O2 Liters/Min FiO2 [employer] Machinist ID Sodium 135 mmol/L L mmol /L (136-145) Potassium 3.9 mmol/L mmol/L (3.5-5.1) Chloride 97 mmol/L L mmol/ L (98-107) Carbon Dioxide 30 mmol/L H mmol/ L (22-29) Anion Gap 11.9 (5-19) BUN 14 mg/dL mg/dL (8-23) Creatinine 1.0 mg/dL H mg/dL (0.5-0.9) GFR Calculation Not Reportable Glucose 146 mg/dL H mg/dL (65-115) Calculated Osmolal ity 283 mOsm/kg L mOs m/kg (285-295) Lactate Calcium 9.0 mg/dL mg/dL (8.5-10.5) Total Bilirubin 0.6 mg/dL mg/dL (0.15-1.2) AST 212 U/L H U/L (0-32) ALT 172 U/L H U/L (0-33) Alkaline Phosphata se 201 IU/L H IU/L (35-105) Total Protein 6.4 g/dL L g/dL (6.6-8.7) Albumin 3.5 g/dL g/dL (3.5-5.2) Globulin 2.9 g/dL g/dL (1.3-4.6) TSH Urine Color Urine Appearance Urine pH Ur Specific Gravit y Urine Protein Urine Glucose (UA) Urine Ketones Urine Blood Urine Nitrate Urine Bilirubin Urine Urobilinogen Ur Leukocyte Nelsy ase Urine RBC Urine WBC Ur Squamous Epith Cells Ur Transition Epit h Cell Amorphous Sediment Urine Bacteria Hyaline Casts Coarse Granular Ca sts Ur Oval Fat Bodies Hepatitis A IgM Ab Hep Bs Antigen Hep B Core IgM Ab Hepatitis C Antibo dy 04/08/21 04/08/21 04/08/21 10:15 10:15 10:15 WBC RBC Hgb Hct MCV MCH MCHC RDW Plt Count MPV Neut % (Auto) Lymph % (Auto) [place]ade % (Auto) Eos % (Auto) Baso % (Auto) Neut # (Auto) Lymph # (Auto) Meade # (Auto) Eos # (Auto) Baso # (Auto) Nucleated RBC % (a uto) Nucleated RBCs # PT INR APTT Specimen Type Sample Site ABG pH ABG pCO2 ABG pO2 ABG HCO3 ABG O2 Saturation ABG Base Excess Allan Test A-a O2 Gradient Hematocrit Hgb O2 Saturation Carboxyhemoglobin Methemoglobin Total Hemoglobin Ionized Calcium O2 Delivery Device O2 Liters/Min FiO2 [employer] Machinist ID Sodium Potassium Chloride Carbon Dioxide Anion Gap BUN Creatinine GFR Calculation Glucose Calculated Osmolal ity Lactate 0.7 mmol/L mmol/L (0.5-2.2) Calcium Total Bilirubin AST ALT Alkaline Phosphata se Total Protein Albumin Globulin TSH 2.21 uIU/mL uIU/m L (0.27-4.20) Urine Color Urine Appearance Urine pH Ur Specific Gravit y Urine Protein Urine Glucose (UA) Urine Ketones Urine Blood Urine Nitrate Urine Bilirubin Urine Urobilinogen Ur Leukocyte Nelsy ase Urine RBC Urine WBC Ur Squamous Epith Cells Ur Transition Epit h Cell Amorphous Sediment Urine Bacteria Hyaline Casts Coarse Granular Ca sts Ur Oval Fat Bodies Hepatitis A IgM Ab Non-reactive (Nonreactive) Hep Bs Antigen Non-reactive (Nonreactive) Hep B Core IgM Ab Non-reactive (Nonreactive) Hepatitis C Antibo dy Non-reactive (Nonreactive) 04/08/21 04/08/21 10:37 11:10 WBC RBC Hgb Hct MCV MCH MCHC RDW Plt Count MPV Neut % (Auto) Lymph % (Auto) Meade % (Auto) Eos % (Auto) Baso % (Auto) Neut # (Auto) Lymph # (Auto) Meade # (Auto) Eos # (Auto) Baso # (Auto) Nucleated RBC % (a uto) Nucleated RBCs # PT INR APTT Specimen Type Arterial Sample Site Radial, right ABG pH 7.33 L (7.35-7.45) ABG pCO2 56.9 mmHg H mmHg (35-45) ABG pO2 61.2 mmHg L mmHg (80.0-100.0) ABG HCO3 30.0 mmol/L H mmo l/L (22-26) ABG O2 Saturation 86.3 ABG Base Excess 2.7 mmol/L H mmol /L (-2.0-2.0) Allan Test Pos A-a O2 Gradient 13.1 mmHg H mmHg (5-10) Hematocrit 41.7 % % (37-47) Hgb O2 Saturation 81.7 % L % (95-100) Carboxyhemoglobin 4.5 %THgb %THgb (0.4-20.1) Methemoglobin 0.8 % % (0.4-1.5) Total Hemoglobin 13.6 g/dL g/dL (12-16) Ionized Calcium 1.3 mmol/L mmol/L (1.1-1.4) O2 Delivery Device Nc O2 Liters/Min 3.0 % % FiO2 32.0 % % [employer]ing Machinist ID Cak Sodium 137.0 mmol/L mmol /L (131-143) Potassium 3.6 mmol/L mmol/L (3.5-5.0) Chloride Carbon Dioxide Anion Gap BUN Creatinine GFR Calculation Glucose 158.0 mg/dL H mg/ dL (70-115) Calculated Osmolal ity Lactate Calcium Total Bilirubin AST ALT Alkaline Phosphata se Total Protein Albumin Globulin TSH Urine Color Straw (Yellow) Urine Appearance Hazy A (CLEAR) Urine pH 5 (5-7) Ur Specific Gravit y 1.002 L (1.005-1.030) Urine Protein Neg (Negative) Urine Glucose (UA) 2+ H (Normal) Urine Ketones 1+ H (Negative) Urine Blood Neg (Negative) Urine Nitrate Negative (Negative) Urine Bilirubin Neg (Negative) Urine Urobilinogen Norm mg/dL mg/dL (Negative) Ur Leukocyte Nelsy ase Negative (Negative) Urine RBC Not Reportable Urine WBC 5-10 /hpf H /hpf (0-5) Ur Squamous Epith Cells 0-4 /hpf H /hpf (0-5) Ur Transition Epit h Cell 0-4 /hpf /hpf Amorphous Sediment Not Reportable Urine Bacteria 4+ /hpf H /hpf (NONE) Hyaline Casts 0-4 /lpf H /lpf Coarse Granular Ca sts 0-4 /lpf H /lpf Ur Oval Fat Bodies None /hpf /hpf Hepatitis A IgM Ab Hep Bs Antigen Hep B Core IgM Ab Hepatitis C Antibo dy Discharge Plan Discharge Patient Disposition: Admitted As Inpatient Admit Provider: Haresh Stern Clinical Impression: Hematochezia, History of ischemic colitis, Transaminitis, COPD (chronic obstructive pulmonary disease), Diabetes, Aortic valve mass, Colitis Condition: Stable Coding Level of Care Code ED Refinery Operator Reforming Unit for Chg Fwd Exam Detailed
[2021-04-08 10:26] LABS: Basophils % 0.3 %; Eosinophils # 0.1 10^3/uL (0.0-0.8); Eosinophils % 1.4 %; Hematocrit 44.7 % (37.0-47.0); Hemoglobin 14.5 g/dL (11.5-15.3); Lymphocytes # 0.9 10^3/uL (0.8-4.8); Lymphocytes % 9.7 %; Mean Corpuscular HGB Conc 32.4 g/dL (30.0-36.0); Mean Corpuscular Hemoglobin 31.4 pg (28.0-34.0); Mean Corpuscular Volume 96.8 fl (81-99); Mean Platelet Volume 9.3 fL (7.4-10.4); Monocytes # 0.8 10^3/uL (0.2-0.9); Neutrophils # 6.92 10^3/uL (1.8-7.7); Neutrophils % 79.3 %; Nucleated Red Blood Cells % 0 %; Platelet Count 235 10^3/cmm (130-400); Red Blood Count 4.62 10^6/uL (4.1-5.3); Red Cell Distribution Width 14.6 % (12.1-15.1); White Blood Count 8.7 10^3/uL (4.0-10.0)
[2021-04-08 10:43] LABS: INR 0.95 (0.8-1.2)
[2021-04-08 10:44] LABS: Partial Thromboplastin Time 27.3 SECONDS (23.9-36.7)
[2021-04-08 10:48] LABS: ABG PCO2 56.9 mmHg (35-45); ABG PH Result 7.33 (7.35-7.45); Alveolar-Arterial Oxygen Gradi 13.1 mmHg (5-10); Arterial Blood Gas Hematocrit 41.7 % (37-47); Base Excess ABG 2.7 mmol/L (-2.0-2.0); Blood Gas Allen Test Pos; Blood Gas Operator Identificat CAK; Blood Gas Sample Site Radial, right; Blood Gas Sample Type Arterial; Carboxyhemoglobin 4.5 %THgb (0.4-20.1); HGB O2 Sat 81.7 % (95-100); Ionized Calcium Level - ABG 1.3 mmol/L (1.1-1.4); Methemoglobin 0.8 % (0.4-1.5); Oxygen Device NC; Oxygen Saturation ABG 86.3; PO2 ABG 61.2 mmHg (80.0-100.0); Potassium Level - ABG 3.6 mmol/L (3.5-5.0); Total Hemoglobin 13.6 g/dL (12-16)
[2021-04-08 10:48] LABS: Alanine Aminotransferase 172 U/L (0-33); Albumin Level 3.5 g/dL (3.5-5.2); Alkaline Phosphatase 201 IU/L (35-105); Anion Gap 11.9 (5-19); Aspartate Amino Transferase 212 U/L (0-32); Blood Urea Nitrogen 14 mg/dL (8-23); Carbon Dioxide 30 mmol/L (22-29); Chloride 97 mmol/L (98-107); Globulin 2.9 g/dL (1.3-4.6); Glucose 146 mg/dL (65-115); Osmolality Calculated 283 mOsm/kg (285-295); Potassium 3.9 mmol/L (3.5-5.1); Sodium 135 mmol/L (136-145); Total Bilirubin 0.6 mg/dL (0.15-1.2); Total Protein 6.4 g/dL (6.6-8.7)
[2021-04-08 11:20] LABS: Charge for UA Resulting for Rev
[2021-04-08 11:33] LABS: Urine Appearance Hazy (CLEAR); Urine Color Straw (Yellow)
[2021-04-08 11:34] LABS: Add Urine Microscopic? YES; Bilirubin Urine Neg (Negative); Blood Urine Neg (Negative); Glucose Urine UA 2+ (Normal); Ketones Urine 1+ (Negative); Leukocyte Esterase Urine Negative (Negative); Nitrate Urine Negative (Negative); Protein Urine Neg (Negative); Specific Gravity, Urine 1.002 (1.005-1.030); Urobilinogen Urine Norm (Negative); pH Urine 5 (5-7)
[2021-04-08 11:35] LABS: Add Urine Culture? Yes; Bacteria Urine 4+ /hpf; Coarse Granular Casts Urine 0-4 /lpf; Hyaline Casts Urine 0-4 /lpf; Squamous Epithelial Cell Urine 0-4 /hpf (0-5); Transitional Epi Cells Urine 0-4 /hpf
--- NOTE | 2021-04-08 11:57 | CT_ITS ---
WS: [id number] CT ABDOMEN PELVIS TECHNIQUE: Noncontrast CT of the abdomen and pelvis with coronal and sagittal reformatted images. CLINICAL INFORMATION: diarrhea, hematochezia COMPARISON: None. DLP: 1082.[address] scans at [facility] use at least one of these dose optimization techniques: automated e xposure control; mA and/or kV adjustment per patient size (includes targeted exams where dose is matc hed to clinical indication); or iterative reconstruction. FINDINGS: Noncontrast liver is normal. Cholecystectomy clips. Normal spleen. Normal GE junction. Lung bases are well aerated. Normal right adrenal gland. Small left adrenal adenoma. Measuring 13 mm. Fatty atrophy of the pancreas. Densely calcified abdominal aorta. Aneurysmal infrarenal abdominal aorta measuring 3.1 x 2.4 cm AP by transverse. No hydronephrosis in either kidney. Moderate stenosis in the distal ab dominal aorta with dense calcification. Densely calcified common iliac arteries. No periaortic or ret roperitoneal lymphadenopathy. Diffuse wall thickening involving the right ascending and transverse colon with mild surrounding infl ammation. Less prominent involvement of the left colon. Findings compatible with acute colitis likely infectious or inflammatory. Urine distended bladder. Grade 1 anterolisthesis L4 on L5. Disc space narrowing worse L4-L5 and L5-S1 . Mild chronic appearing compression superior endplate L1. Chronic left inferior pubic ramus fracture with callus formation. CT/CT abdomen pelvis wo con [id number] IMPRESSION: 1. Diffuse thickening of the right ascending colon and transverse colon with m ild surrounding induration consistent with acute colitis likely infectious or i nflammatory. 2. No evidence of high-grade small or large bowel obstruction. 3. No free fluid in the abdomen or pelvis. 4. Small abdominal aortic aneurysm measuring 3.1 x 2.4 CM. Dense aortic calcif ication.
--- NOTE | 2021-04-08 12:15 | PM.HP ---
Providers/Chief Complaint Admitting Physician: Haresh Stern MD Primary Care Provider: Mary Diaz Chief Complaint: DIARRHEA X 1 WEEK, RECTAL BLEEDING History of Present Illness Ramandeep Woodward is a 70 year old female recently discharged from the hospital on April 05 with a near syncopal episode. Apparently she has been having diarrhea for around a week. At some point she started having bright red blood in her stool. In the emergency department, blood was noted in her briefs and on rectal exam. Patient reports she has some periumbilical to below umbilical discomfort. She has had no nausea or vomiting. She has been able to continue to eat. No fevers at home. During her hospital stay, she was checked for C. difficile and a bacterial culture was done which was negative. Previously, she had diarrhea and blood in her stool and had a colonoscopy performed November 2018 demonstrating mild inflammation of her transverse colon and on biopsy ischemic colitis was noted. This was at [facility] in [facility]. She has been taking her antiplatelet, and anticoagulant medication. She has not had any hematemesis. Review of Systems General: Reports: 10 or more systems reviewed and unremarkable except in HPI and below Const: Denies: fever(s) Eyes: Denies: change in vision ENMT: Denies: throat pain Card: Denies: chest pain Resp: Denies: dyspnea GI: Reports: abdominal pain and hematochezia; Denies: nausea or vomiting : Denies: flank pain Musc: Denies: neck pain Skin/Breast: Denies: rash Neuro: Reports: other (Memory difficulty); Denies: headache(s) Psych: Denies: anxiety Endo: Denies: polyuria James/Lymph: Denies: easy bruising All/Imm: Denies: urticaria Medications/Allergies Home Medications Medication Instructions Recorded Confirmed Last Taken Type aspirin 81 mg tablet,delayed 81 mg PO DAILY 08/28/19 04/02/21 04/02/21 History release atorvastatin 80 mg tablet 80 mg PO BEDTIME 08/28/19 04/02/21 04/01/21 History bupropion HCl 150 mg 24 hr tablet, 150 mg PO BID 08/28/19 04/02/21 04/02/21 History extended release dapagliflozin 5 mg tablet 5 mg PO DAILY 08/28/19 04/02/21 04/02/21 History furosemide 40 mg tablet 40 mg PO BID 08/28/19 04/02/21 04/02/21 History gabapentin 300 mg capsule See Rx Instructions .ROUTE .COMPLEX 08/28/19 04/02/21 04/02/21 History levetiracetam 500 mg tablet 500 mg PO BID tab 08/28/19 04/02/21 04/02/21 History losartan 100 mg tablet 100 mg PO DAILY 08/28/19 04/02/21 04/02/21 History multivitamin 1 cap PO DAILY 08/28/19 04/02/21 04/02/21 History nitroglycerin 0.4 mg sublingual 0.4 mg SUBLINGUAL Q5M PRN 08/28/19 04/02/21 Unknown History tablet nortriptyline 25 mg capsule 25 mg PO BEDTIME 08/28/19 04/02/21 04/01/21 History paroxetine HCl 10 mg tablet 10 mg PO DAILY 08/28/19 04/02/21 04/02/21 History potassium chloride 20 mEq 20 meq PO DAILY 08/28/19 04/02/21 04/02/21 History tablet,extended release rivaroxaban 10 mg tablet 10 mg PO DAILY 08/28/19 04/02/21 04/02/21 History ropinirole 0.25 mg tablet 0.25 mg PO TID 08/28/19 04/02/21 04/02/21 History Spiriva Respimat 2 puff INHALATION DAILY 04/02/21 04/02/21 04/02/21 History Vitamin D3 25 mcg PO DAILY 04/02/21 04/02/21 04/02/21 History albuterol sulfate 2 puff INHALATION Q4H PRN 04/02/21 04/02/21 Unknown History albuterol sulfate 2.5 mg INHALATION TID PRN 04/02/21 04/02/21 Unknown History hyoscyamine sulfate 0.125 mg PO Q6H PRN 04/02/21 04/02/21 Unknown History levothyroxine 88 mcg PO DAILY 04/02/21 04/02/21 04/02/21 History omeprazole 20 mg PO DAILY 04/02/21 04/02/21 04/02/21 History Levemir FlexTouch U-100 Insuln 20 unit SUBCUT BEDTIME #0 ml 04/05/21 04/02/21 04/01/21 Rx amlodipine 10 mg PO DAILY #0 tab 04/05/21 04/02/21 04/02/21 Rx fluticasone propion-salmeterol 1 inh INHALATION BID #60 ea 04/05/21 Unknown Rx [Advair Diskus] isosorbide mononitrate 60 mg PO DAILY #0 tab 04/05/21 04/02/21 04/02/21 Rx Allergies Allergy/AdvReac Type Severity Reaction Status Date / Time Iodinated Contrast Media Allergy ALGY-Difficulty Verified 04/02/21 12:19 Breathing Penicillins Allergy ALGY-Rash Verified 04/02/21 12:19 PFSH Acute PFSH: Medical History (Updated 04/08/21 @ 12:35 by Haresh Stern MD) Anemia Aortic valve mass CAD (coronary artery disease) Carotid stenosis COPD (chronic obstructive pulmonary disease) Depression with anxiety Diabetes Diabetic neuropathy GERD (gastroesophageal reflux disease) History of ischemic colitis History of seizure HTN (hypertension) Hyperlipidemia Stroke, embolic TIA (transient ischemic attack) Surgical History History of colonoscopy Family History Other CHF (congestive heart failure) Social History Smoking and tobacco status: current every day smoker cigarettes Packs smoked per day: 1 Alcohol intake: former Vitals/I&O/Wt Last Vital Signs Temp 98.1 F 04/08/21 10:30 Pulse 74 04/08/21 10:30 Resp 19 H 04/08/21 10:30 BP 150/69 04/08/21 10:30 Pulse Ox 92 04/08/21 10:30 Weight last 48 hrs Weight 63.503 kg Physical Exam Narrative: EXAM NARRATIVE: General exam is a white female, no distress, conversant but mildly confused. HEENT: Atraumatic and normocephalic. Pupils round. Slight left facial droop noted. Oropharynx clear. Neck is supple no lymphadenopathy or thyromegaly. Bilateral bruits are noted. Cardiovascular regular rate and rhythm with a 3/6 systolic murmur heard best at the left lower sternal border Abdomen is soft with positive bowel sounds. Bruits noted centrally. exam is deferred Extremities no cyanosis clubbing or edema, cap refill brisk Skin no rash Neuro left facial droop Data : 04/08/21 10:15 04/08/21 10:15 A&P Assessment and plan (1) Hematochezia: Currently with loose stool, bright red blood per stool. She is not significantly anemic. This is associated with some abdominal discomfort. Make n.p.o. CT scan abdomen and pelvis, without contrast okay. Concerned with elevation in creatinine. Differential diagnosis large but considering endoscopy 2 years ago with ischemic colitis it is likely the same process. No significant diverticuli were noted at that time. Flagyl, Cipro IV fluids Check lactate Hold antihypertensives for now, as well as diuretics secondary to suspicion of ischemic colitis Repeat C. difficile Will have surgery evaluate as well although patient is thought to be a poor surgical candidate. Status: Acute (2) History of ischemic colitis: See above Status: Acute (3) Carotid stenosis: We will try to continue aspirin. Has significant atherosclerotic disease bilaterally and not a candidate for surgery. Status: Acute Qualifiers: Laterality: bilateral Qualified Code(s): I65.23 - Occlusion and stenosis of bilateral carotid arteries (4) Aortic valve mass: Resume anticoagulant as soon as possible when bleeding abates. Will initiate Lovenox first lower dose tonight if bleeding is less. Status: Acute (5) Diabetes: Sliding scale insulin Status: Acute (6) Stroke, embolic: Discussed with patient, daughter and family regarding risk of taking off anticoagulant, but risk of bleeding as it is significant currently is higher. We will reinitiate anticoagulant as soon as possible. History of multiple CVAs in the past. Status: Acute Qualifiers: Precerebral and cerebral artery: unspecified cerebral artery Qualified Code(s): I63.40 - Cerebral infarction due to embolism of unspecified cerebral artery (7) CAD (coronary artery disease): Continue aspirin, statin, nitrate Status: Acute (8) Transaminitis: Mild, repeat in a.m. Status: Acute (9) History of seizure: Continue Keppra Status: Acute (10) COPD (chronic obstructive pulmonary disease): Continue Advair DuoNeb as needed Status: Acute Additional A&P Information Multiple other medical problems as outlined in past medical history Allow natural . Discussed with patient as well as power of civil rights attorney, daughter Sandy SCDs for DVT prophylaxis. Other anticoagulation contraindicated secondary to active bleeding, however if bleeding starts to gabriel consider DVT prophylaxis Lovenox tonight. This is secondary to concern of ischemic colitis as well as multiple other medical problems. 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
--- NOTE | 2021-04-08 13:29 | PC.NURSE ---
Report called to floor, given to TREE Del Angel
--- NOTE | 2021-04-08 13:30 | PC.NURSE ---
Pt arrvied via EMS from home where she lives with family. Daughter reported to EMS dark, black like stool that started this morning. Pt denies any N/V, on arrival pt was noted by this RN to have renetta blood in brief with some small clots present. Pt appears to be A/O x4, vss, pt placed on monitor, no furhter needs at this time.
[2021-04-08 13:32] LABS: Thyroid Stimulating Hormone 2.21 uIU/mL (0.27-4.20)
[2021-04-08 13:47] LABS: Lactate (Lactic Acid level) 0.7 mmol/L (0.5-2.2)
[2021-04-08] MEDS: ciprofloxacin 400 MG/200 ML PREMIX 200 MG IV ×2 (14:00→23:10)
[2021-04-08] MEDS: metroNIDAZOLE IV 500 MG/100 ML PREMIX 100 MG IV ×3 (14:58→23:11)
[2021-04-08] MEDS: sodium chloride 0.9% 1,000 ML 75 ML IV (14:58)
[2021-04-08 15:43] LABS: Hematocrit 38.4 % (37.0-47.0); Hemoglobin 12.6 g/dL (11.5-15.3)
[2021-04-08 16:58] LABS: Glucose Point of Care 150 mg/dL (70-110)
[2021-04-08] MEDS: gabapentin 300 mg Capsule PO (17:18)
[2021-04-08] MEDS: levETIRAcetam 500 mg Tablet PO (17:18)
[2021-04-08] MEDS: pantoprazole DR 40 mg Tablet PO (17:18)
[2021-04-08] MEDS: buPROPion XL (24 HR) 150 mg Tablet PO (17:18)
[2021-04-08] MEDS: insulin lispro 100 unit/1 mL SUBCUT (17:18)
--- NOTE | 2021-04-08 18:20 | PC.NURSE ---
Dr. Stern updated on patient and bloody BM she had this afternoon.
[2021-04-08 20:49] LABS: Glucose Point of Care 94 mg/dL (70-110)
[2021-04-08] MEDS: atorvastatin 40 mg Tablet 80 MG PO (20:59)
[2021-04-09] VITALS (11 sets, daily range): BP systolic 114–179; BP diastolic 60–78; PULSE 76–97; RESP 16–24; TEMP 36.9–37.1; O2SAT 90–94
[2021-04-09] MEDS: metroNIDAZOLE IV 500 MG/100 ML PREMIX 100 MG IV ×4 (05:16→23:16)
[2021-04-09] MEDS: sodium chloride 0.9% 1,000 ML 75 ML IV (05:16)
[2021-04-09 06:33] LABS: Basophils % 0.4 %; Eosinophils # 0.2 10^3/uL (0.0-0.8); Eosinophils % 2.1 %; Hematocrit 38.7 % (37.0-47.0); Hemoglobin 12.2 g/dL (11.5-15.3); Lymphocytes # 1.3 10^3/uL (0.8-4.8); Lymphocytes % 17.7 %; Mean Corpuscular HGB Conc 31.5 g/dL (30.0-36.0); Mean Corpuscular Hemoglobin 30.8 pg (28.0-34.0); Mean Corpuscular Volume 97.7 fl (81-99); Mean Platelet Volume 9.6 fL (7.4-10.4); Monocytes # 0.8 10^3/uL (0.2-0.9); Neutrophils % 68.7 %; Nucleated Red Blood Cells % 0 %; Platelet Count 214 10^3/cmm (130-400); Red Blood Count 3.96 10^6/uL (4.1-5.3); Red Cell Distribution Width 14.4 % (12.1-15.1); White Blood Count 7.6 10^3/uL (4.0-10.0)
[2021-04-09 06:44] LABS: Glucose Point of Care 105 mg/dL (70-110)
[2021-04-09 06:49] LABS: Alanine Aminotransferase 290 U/L (0-33); Albumin Level 2.8 g/dL (3.5-5.2); Alkaline Phosphatase 205 IU/L (35-105); Anion Gap 13.3 (5-19); Aspartate Amino Transferase 236 U/L (0-32); Blood Urea Nitrogen 9 mg/dL (8-23); Calcium 8.4 mg/dL (8.5-10.5); Carbon Dioxide 26 mmol/L (22-29); Chloride 103 mmol/L (98-107); Globulin 2.6 g/dL (1.3-4.6); Glucose 107 mg/dL (65-115); Magnesium 1.5 mg/dL (1.7-2.3); Osmolality Calculated 287 mOsm/kg (285-295); Potassium 3.3 mmol/L (3.5-5.1); Sodium 139 mmol/L (136-145); Total Bilirubin 0.4 mg/dL (0.15-1.2); Total Protein 5.4 g/dL (6.6-8.7)
[2021-04-09] MEDS: ipratropium-albuterol 3 mL Neb INHALATION ×3 (08:04→20:32)
[2021-04-09] MEDS: pantoprazole DR 40 mg Tablet PO ×2 (09:14→18:12)
[2021-04-09] MEDS: buPROPion XL (24 HR) 150 mg Tablet PO ×2 (09:14→18:15)
[2021-04-09] MEDS: isosorbide mononitrate ER 60 mg Tablet PO (09:14)
[2021-04-09] MEDS: gabapentin 300 mg Capsule PO ×2 (09:14→18:15)
[2021-04-09] MEDS: levETIRAcetam 500 mg Tablet PO ×2 (09:14→18:15)
[2021-04-09] MEDS: levothyroxine 88 mcg Tablet PO (09:14)
--- NOTE | 2021-04-09 09:39 | PC.CHAP ---
Pastoral Care Encounter/Spiritual Assessment Type of Contact [] Declined field cane scaler visit [] Patient/Family/Request visit [] Outpatient visit [] Follow-up visit [] Physician referral [] Code/Alert [] Routine visit [] Staff referral [] Actively dying [x] Patient sleeping [] Family support [] [] Out of room [] Palliative care [] [] Receiving care in room [] Pre-surgical visit [] Trauma [] Long length of stay [] ICU visit [] Other: Relational/Emotional Strength [] Patient feels connected with others/family/visitors/staff [] Distress [] Loneliness/isolation [] Abandonment Spirituality of Patient [] Person of Cleo [] Attends Yarsani of their Cleo [] Believes in Prayer [] Reads Bible or Taoism materials [] There are Spiritual issues to be addressed Surgical Corsetier Interventions [] Prayer [] Active listening [] Non-anxious presence [] Spiritual/emotional support [] Crisis/trauma care [] Spiritual counseling [] Bereavement support [] Provided bereavement packet [] Provided Bible/devotional materials [] Provided toy/stuffed animal, coloring book to patient or family member [] Provided Communion [] Anointing/[place] [] Salvation [] Completed spiritual assessment [] Other: Impact on Illness or Injury [] Angry [] Fearful [] Anxious [] Often cries [] Exhaustion [] Unable to work [] Unable to attend taoism [] Unable to walk/stand [] Unable to read [] Unable to drive [] Unable to eat/drink [] Unable to sleep [] Unable to be with family [] Patient intubated [] Other: Summary Time spent with patient x
[2021-04-09 09:49] LABS: Creatine Phosphokinase 26 U/L (26-192)
[2021-04-09] MEDS: potassium chloride ER 20 mEq Tablet 40 MEQ PO (09:59)
[2021-04-09] MEDS: FUROsemide 10 mg/mL SDV 2mL 20 MG IVP (09:59)
[2021-04-09] MEDS: PARoxetine 20 mg Tablet 10 MG PO (09:59)
[2021-04-09] MEDS: magnesium sulfate premix 2 GM/50 ML PIGGYBACK IV (10:00)
[2021-04-09] MEDS: enoxaparin 40 mg/0.4 mL Syringe SUBCUT ×2 (10:38→21:02)
[2021-04-09 10:39] LABS: Hepatitis A Antibody IgM Non-Reactive (Nonreactive); Hepatitis B Core IgM Non-Reactive (Nonreactive); Hepatitis B Surface Antigen Non-Reactive (Nonreactive); Hepatitis C Virus Antibody Non-Reactive (Nonreactive)
--- NOTE | 2021-04-09 10:47 | PM.PN ---
Subjective Subjective: Interval history: Patient reports she is doing better. No abdominal pain today. She reports no bloody bowel movement since last night. Medications: Reviewed: Yes Vitals/I&O/Wt Last Vital Signs Temp 98.4 F 04/09/21 07:25 Pulse 76 04/09/21 08:04 Resp 18 04/09/21 08:04 BP 179/78 04/09/21 07:25 Pulse Ox 90 04/09/21 08:04 04/08/21 04/09/21 04/09/21 22:59 06:59 14:59 Intake Total 400 / 400 1300 / 1700 Balance 400 / 400 1300 / 1700 Weight last 48 hrs Weight 63.458 kg Weight 63.503 kg Physical Exam Narrative: EXAM NARRATIVE: General exam is a white female, no distress Neck is supple no lymphadenopathy or thyromegaly. Bilateral bruits are noted. Cardiovascular regular rate and rhythm with a 3/6 systolic murmur heard best at the left lower sternal border Abdomen is soft with positive bowel sounds. Bruits noted centrally. Extremities no cyanosis clubbing or edema, cap refill brisk Data : 04/09/21 05:56 04/09/21 05:56 Micro: Microbiology 04/08/21 11:10 Urine Culture - Preliminary Urine,Clean Catch Gram Negative Rods A&P Assessment and plan (1) Hematochezia: No hematochezia since last night CT abdomen pelvis without contrast demonstrated colitis, transverse and a sending Differential diagnosis large but considering endoscopy 2 years ago with ischemic colitis it is likely the same process. No significant diverticuli were noted at that time. Yady Mcneill started on admission IV fluids initiated as well as n.p.o. status. With her improvement will start clear liquids, discontinue IV fluids Lactate was checked and not elevated C. difficile is pending Status: Acute (2) History of ischemic colitis: See above Status: Acute (3) Carotid stenosis: We will try to continue aspirin. Has significant atherosclerotic disease bilaterally and not a candidate for surgery. Status: Acute Qualifiers: Laterality: bilateral Qualified Code(s): I65.23 - Occlusion and stenosis of bilateral carotid arteries (4) Aortic valve mass: Resume anticoagulant as soon as possible when bleeding abates. Bleeding has abated. Secondary to the high risk of recurrence of CVAs, in this patient who has had multiple CVAs in the past, will initiate Lovenox 40 mg subcutaneous every 12 hours. If no significant bleeding consider restarting her Xarelto in the near future. Status: Acute (5) Diabetes: Sliding scale insulin Status: Acute (6) Stroke, embolic: Discussed with patient, daughter and family regarding risk of taking off anticoagulant, but risk of bleeding as it is significant currently is higher. We will reinitiate anticoagulant as soon as possible. Reinitiate lower dose Lovenox currently, with plans to advance to oral anticoagulate if well tolerated History of multiple CVAs in the past. Status: Acute Qualifiers: Precerebral and cerebral artery: unspecified cerebral artery Qualified Code(s): I63.40 - Cerebral infarction due to embolism of unspecified cerebral artery (7) CAD (coronary artery disease): Continue aspirin,nitrate. Holding statin secondary to transaminitis. Check CK. Status: Acute (8) Transaminitis: Unimproved. Hold statin. I suspect she may have some fluid overload from holding her Lasix and giving her IV fluids for ischemic colitis. Lasix 20 mg IV x1. Hepatitis panel negative Status: Acute (9) History of seizure: Continue Keppra Status: Acute (10) COPD (chronic obstructive pulmonary disease): Continue Advair DuoNeb as needed No evidence of exacerbation. Status: Acute Additional A&P Information Mild hypokalemia, supplement Hypomagnesemia, supplement Multiple other medical problems as outlined in past medical history Allow natural . Discussed with patient as well as power of workers compensation attorney, daughter Sandy SCDs for DVT prophylaxis. Other anticoagulation contraindicated secondary to active bleeding, however if bleeding starts to gabriel consider DVT prophylaxis Lovenox tonight. This is secondary to concern of ischemic colitis as well as multiple other medical problems. Attestations Medical Necessity Statement*: Needs continued hospitalization for further antibiotics and monitoring secondary to colitis, likely ischemic in this patient with hematochezia. Restarting some anticoagulation today and will need close monitoring. Coding Level of Care Code Acute Shipping Inspector for [facility] Diagnoses Hematochezia K92.1 History of ischemic colitis Z87.19 Carotid stenosis I65.23 Laterality: bilateral Aortic valve mass I35.8 Diabetes E11.9 Stroke, embolic I63.40 Precerebral and cerebral artery: unspecified cerebral artery CAD (coronary artery disease) I25.10 Transaminitis R74.01 History of seizure Z87.898 COPD (chronic obstructive pulmonary disease) J44.9
[2021-04-09 11:18] LABS: Glucose Point of Care 107 mg/dL (70-110)
[2021-04-09] MEDS: ciprofloxacin 400 MG/200 ML PREMIX 200 MG IV ×2 (11:26→23:16)
[2021-04-09] MEDS: amlodipine 5 mg Tablet PO (11:26)
[2021-04-09 17:27] LABS: Glucose Point of Care 181 mg/dL (70-110)
[2021-04-09] MEDS: insulin lispro 100 unit/1 mL SUBCUT ×2 (18:16→20:48)
[2021-04-09 20:09] LABS: Glucose Point of Care 153 mg/dL (70-110)
[2021-04-10] VITALS (11 sets, daily range): BP systolic 121–167; BP diastolic 66–79; PULSE 76–94; RESP 16–20; TEMP 36.5–37.1; O2SAT 92–97
[2021-04-10] MEDS: metroNIDAZOLE IV 500 MG/100 ML PREMIX 100 MG IV ×4 (05:09→23:12)
[2021-04-10 05:34] LABS: Basophils % 0.3 %; Eosinophils # 0.1 10^3/uL (0.0-0.8); Eosinophils % 1.9 %; Hematocrit 35.1 % (37.0-47.0); Hemoglobin 11.4 g/dL (11.5-15.3); Lymphocytes # 1.5 10^3/uL (0.8-4.8); Lymphocytes % 20.2 %; Mean Corpuscular HGB Conc 32.5 g/dL (30.0-36.0); Mean Corpuscular Hemoglobin 31.9 pg (28.0-34.0); Mean Corpuscular Volume 98.3 fl (81-99); Mean Platelet Volume 9.3 fL (7.4-10.4); Monocytes # 0.9 10^3/uL (0.2-0.9); Monocytes % 11.5 %; Neutrophils # 4.87 10^3/uL (1.8-7.7); Neutrophils % 65.7 %; Nucleated Red Blood Cells % 0 %; Platelet Count 209 10^3/cmm (130-400); Red Blood Count 3.57 10^6/uL (4.1-5.3); Red Cell Distribution Width 14.2 % (12.1-15.1); White Blood Count 7.4 10^3/uL (4.0-10.0)
[2021-04-10 05:59] LABS: Alanine Aminotransferase 166 U/L (0-33); Albumin Level 2.7 g/dL (3.5-5.2); Alkaline Phosphatase 154 IU/L (35-105); Anion Gap 9.3 (5-19); Aspartate Amino Transferase 82 U/L (0-32); Blood Urea Nitrogen 8 mg/dL (8-23); Calcium 8.7 mg/dL (8.5-10.5); Carbon Dioxide 29 mmol/L (22-29); Chloride 98 mmol/L (98-107); Globulin 2.6 g/dL (1.3-4.6); Glucose 122 mg/dL (65-115); Magnesium 1.5 mg/dL (1.7-2.3); Osmolality Calculated 276 mOsm/kg (285-295); Potassium 3.3 mmol/L (3.5-5.1); Sodium 133 mmol/L (136-145); Total Bilirubin 0.2 mg/dL (0.15-1.2); Total Protein 5.3 g/dL (6.6-8.7)
[2021-04-10 06:34] LABS: Glucose Point of Care 124 mg/dL (70-110)
[2021-04-10] MEDS: levETIRAcetam 500 mg Tablet PO ×2 (08:15→17:45)
[2021-04-10] MEDS: PARoxetine 20 mg Tablet 10 MG PO (08:15)
[2021-04-10] MEDS: pantoprazole DR 40 mg Tablet PO ×2 (08:15→17:45)
[2021-04-10] MEDS: isosorbide mononitrate ER 60 mg Tablet PO (08:15)
[2021-04-10] MEDS: buPROPion XL (24 HR) 150 mg Tablet PO ×2 (08:15→17:45)
[2021-04-10] MEDS: levothyroxine 88 mcg Tablet PO (08:15)
[2021-04-10] MEDS: aspirin 81 mg EC Tablet PO (08:15)
[2021-04-10] MEDS: amlodipine 5 mg Tablet PO (08:15)
[2021-04-10] MEDS: gabapentin 300 mg Capsule PO ×2 (08:15→17:45)
[2021-04-10] MEDS: ipratropium-albuterol 3 mL Neb INHALATION ×3 (09:09→23:53)
[2021-04-10] MEDS: enoxaparin 40 mg/0.4 mL Syringe SUBCUT (09:21)
[2021-04-10 10:59] LABS: Glucose Point of Care 215 mg/dL (70-110)
[2021-04-10] MEDS: ciprofloxacin 400 MG/200 ML PREMIX 200 MG IV ×2 (11:22→23:12)
[2021-04-10] MEDS: insulin lispro 100 unit/1 mL SUBCUT ×3 (12:37→20:32)
--- NOTE | 2021-04-10 14:35 | PM.PN ---
Subjective Subjective: Interval history: Patient is endorsing feeling better, no diarrhea since yesterday, liver enzymes are trending down, patient does not want to go to retirement, requested PT evaluation today, afebrile, gram-negative kacy Enterobacter cloacae I am sensitive to ciprofloxacin She is afebrile no leukocytosis Plan to discharge her tomorrow advanced her diet to GI soft Vitals/I&O/Wt Last Vital Signs Temp 98.1 F 04/10/21 11:22 Pulse 91 04/10/21 11:22 Resp 16 04/10/21 11:22 BP 121/66 04/10/21 11:22 Pulse Ox 92 04/10/21 11:22 04/09/21 04/10/21 04/10/21 22:59 06:59 14:59 Intake Total 1580 / 1930 600 / 2530 780 / 780 Balance 1580 / 1930 600 / 2530 780 / 780 Physical Exam Narrative: EXAM NARRATIVE: Patient was sitting at the bedside without any active complaints Noticed smoker's cough Saturating well on 2 L nasal cannula No active wheezing on lung auscultation Abdomen soft no signs of peritonitis bowel sounds hyperactive No edema of legs EOMI, PERRLA Pleasant and cooperative during my evaluation Does look well-hydrated Data : 04/10/21 05:02 04/10/21 05:02 Micro: Microbiology 04/08/21 11:10 Urine Culture - Final Urine,Clean Catch Enterobacter cloacae A&P Assessment and plan (1) Colitis: Status: Acute (2) COPD (chronic obstructive pulmonary disease): Status: Acute (3) History of seizure: Status: Acute (4) Abnormal liver function: Status: Acute (5) History of ischemic colitis: Status: Acute (6) Hematochezia: Status: Acute (7) Junctional bradycardia: Status: Acute (8) Aortic valve mass: Status: Acute (9) Diabetes: Status: Acute Additional A&P Information Hematochezia: No recurrence of hematochezia episodes, hemoglobin 11.4 hemodynamically stable I would go ahead and start her on anticoagulating agent Continue Xarelto and discontinue Lovenox Colitis: History of ischemic colitis however she does not have peritonitis, no leukocytosis, hemodynamically stable Currently on ciprofloxacin and Flagyl which I would continue for now She will need outpatient follow-up with colonoscopy C. difficile panel negative, stool panel negative No recurrence of diarrhea or hematochezia COPD without acute exacerbation currently saturating well on 3 L cannula home requirement, she does experiences smoker's cough we will add Mucomyst along DuoNeb and dextromethorphan Abnormal liver enzymes secondary to fatty infiltration of liver Liver enzymes trending down History of vegetation on aortic valve, continue Xarelto for now continue Keppra for seizures Continue levothyroxine 88 mcg for history of hypothyroidism Hypokalemia: Repleted Hypomagnesemia: Repleted DNR/DNI Patient is refusing to go to retirement We will request PT evaluation, Plan to discharge her tomorrow GI soft diet Attestations Medical Necessity Statement*: Anticipating discharge tomorrow if clinically stable Time Spent in Patient Care: 16 - 35 minutes Coding Level of Care Code Acute Tripper for [employer] Fwd Diagnoses Colitis K52.9 COPD (chronic obstructive pulmonary disease) J44.9 History of seizure Z87.898 Abnormal liver function R94.5 History of ischemic colitis Z87.19 Hematochezia K92.1 Junctional bradycardia R00.1 Aortic valve mass I35.8 Diabetes E11.9
[2021-04-10] MEDS: potassium chloride ER 20 mEq Tablet 40 MEQ PO (14:47)
[2021-04-10 15:50] LABS: Procalcitonin 0.09 ng/mL (0-0.5)
--- NOTE | 2021-04-10 16:56 | PC.PHAR ---
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 VERIFIED BY COURT [employer] AND [employer]
[2021-04-10 17:11] LABS: Glucose Point of Care 183 mg/dL (70-110)
[2021-04-10] MEDS: magnesium oxide 400 mg tablet PO (17:45)
[2021-04-10] MEDS: acetylcysteine 200 mg/mL SDV 4 mL 100 MG INHALATION ×2 (19:54→23:53)
[2021-04-10 20:40] LABS: Glucose Point of Care 246 mg/dL (70-110)
[2021-04-11] VITALS: BP 165/85; PULSE 88; RESP 17; TEMP 36.9; O2SAT 96
[2021-04-11 03:17] VITALS: PULSE 88; RESP 18; O2SAT 95
[2021-04-11] MEDS: acetylcysteine 200 mg/mL SDV 4 mL 100 MG INHALATION (03:22)
[2021-04-11] MEDS: ipratropium-albuterol 3 mL Neb INHALATION (03:22)
[2021-04-11 03:24] VITALS: PULSE 86; RESP 18; O2SAT 96
[2021-04-11 04:00] VITALS: BP 186/71; PULSE 92; RESP 17; TEMP 36.8; O2SAT 90
[2021-04-11 04:22] LABS: Basophils % 0.3 %; Eosinophils # 0.2 10^3/uL (0.0-0.8); Eosinophils % 1.9 %; Hemoglobin 12.4 g/dL (11.5-15.3); Lymphocytes # 1.4 10^3/uL (0.8-4.8); Lymphocytes % 17.1 %; Mean Corpuscular HGB Conc 32.6 g/dL (30.0-36.0); Mean Corpuscular Volume 97.9 fl (81-99); Mean Platelet Volume 9.7 fL (7.4-10.4); Monocytes % 12.8 %; Neutrophils # 5.35 10^3/uL (1.8-7.7); Neutrophils % 67.3 %; Nucleated Red Blood Cells % 0 %; Platelet Count 244 10^3/cmm (130-400); Red Blood Count 3.88 10^6/uL (4.1-5.3); Red Cell Distribution Width 14.4 % (12.1-15.1)
[2021-04-11 04:44] LABS: Alanine Aminotransferase 116 U/L (0-33); Albumin Level 2.9 g/dL (3.5-5.2); Alkaline Phosphatase 150 IU/L (35-105); Aspartate Amino Transferase 37 U/L (0-32); Blood Urea Nitrogen 11 mg/dL (8-23); Calcium 8.8 mg/dL (8.5-10.5); Carbon Dioxide 30 mmol/L (22-29); Chloride 100 mmol/L (98-107); Globulin 2.9 g/dL (1.3-4.6); Glucose 217 mg/dL (65-115); Osmolality Calculated 290 mOsm/kg (285-295); Sodium 137 mmol/L (136-145); Total Bilirubin 0.2 mg/dL (0.15-1.2); Total Protein 5.8 g/dL (6.6-8.7)
[2021-04-11] MEDS: metroNIDAZOLE IV 500 MG/100 ML PREMIX 100 MG IV (05:16)
[2021-04-11 06:36] LABS: Glucose Point of Care 179 mg/dL (70-110)
[2021-04-11 07:58] VITALS: BP 167/81; PULSE 93; RESP 16; TEMP 36.7; O2SAT 90
[2021-04-11] MEDS: buPROPion XL (24 HR) 150 mg Tablet PO (09:05)
[2021-04-11] MEDS: levothyroxine 88 mcg Tablet PO (09:05)
[2021-04-11] MEDS: isosorbide mononitrate ER 60 mg Tablet PO (09:06)
[2021-04-11] MEDS: amlodipine 5 mg Tablet PO (09:06)
[2021-04-11] MEDS: magnesium oxide 400 mg tablet PO (09:06)
[2021-04-11] MEDS: gabapentin 300 mg Capsule PO (09:06)
[2021-04-11] MEDS: PARoxetine 20 mg Tablet 10 MG PO (09:07)
[2021-04-11] MEDS: potassium chloride ER 20 mEq Tablet 40 MEQ PO (09:07)
[2021-04-11] MEDS: levETIRAcetam 500 mg Tablet PO (09:08)
[2021-04-11] MEDS: rivaroxaban 10 mg Tablet PO (09:08)
[2021-04-11] MEDS: aspirin 81 mg EC Tablet PO (09:13)
--- NOTE | 2021-04-11 09:25 | P.DS_ITS ---
Discharge Providers Date of Admission: 04/08/21 11:19 Date of Discharge: April 11, 2021 Attending Provider at Admission: Haresh Stern MD Attending Provider at Discharge: Wyatt Fletcher MD Primary Care Provider: Mary Diaz Diagnoses at Discharge Discharge Diagnosis (1) Colitis: Status: Acute (2) COPD (chronic obstructive pulmonary disease): Status: Acute (3) History of seizure: Status: Acute (4) Abnormal liver function: Status: Acute (5) History of ischemic colitis: Status: Acute (6) Hematochezia: Status: Acute (7) Junctional bradycardia: Status: Acute (8) Aortic valve mass: Status: Acute (9) Diabetes: Status: Acute Reason for Visit Reason for Visit: DIARRHEA X 1 WEEK, RECTAL BLEEDING Hospital Course Hospital Course History of Present Illness by Dr. Jarred Smallwood' S Woodward is a 70 year old female recently discharged from the hospital on April 05 with a near syncopal episode. Apparently she has been having diarrhea for around a week. At some point she started having bright red blood in her stool. In the emergency department, blood was noted in her briefs and on rectal exam. Patient reports she has some periumbilical to below umbilical discomfort. She has had no nausea or vomiting. She has been able to continue to eat. No fevers at home. During her hospital stay, she was checked for C. difficile and a bacterial culture was done which was negative. Previously, she had diarrhea and blood in her stool and had a colonoscopy performed November 2018 demonstrating mild inflammation of her transverse colon and on biopsy ischemic colitis was noted. This was at [facility] in [facility]. She has been taking her antiplatelet, and anticoagulant medication. She has not had any hematemesis. Hospital course Patient was admitted for management evaluation of hematochezia. Patient did not experience any hematochezia during hospitalization, hemoglobin remained stable. Hemodynamically remained stable as well. She was diagnosed with colitis, she did well with ciprofloxacin and metronidazole regimen. C. difficile panel negative, stool culture negative. Patient was able to tolerate diet on the day of discharge, no recurrent nausea, vomiting fever worsening leukocytosis or abdominal pain. Patient was eager to return home, she does not want to go to any fdc, she is able to get up go to the bathroom she feels energetic enough to take care of herself. Her son was notified before discharge that his mother is planning to return home and refusing fdc. Patient did well with physical therapy as well, she was counseled to quit smoking. Her Xarelto was continued on 04/10. She does have history of ischemic colitis in the past, aortic valve vegetation, she was asked to follow-up with PCP to plan colonoscopy/stage colonoscopy outpatient. She will be discharged on 7-day regimen of ciprofloxacin and Flagyl. Continue rivaroxaban. Physical Exam Narrative: EXAM NARRATIVE: Patient was sitting at the bedside without any active complaints Noticed smoker's cough Saturating well on 2 L nasal cannula No active wheezing on lung auscultation Abdomen soft no signs of peritonitis bowel sounds hyperactive No edema of legs EOMI, PERRLA Pleasant and cooperative during my evaluation Does look well-hydrated Discharge Data Data Completed and Pending: Completed Studies During Hospitalization Category Date Time Status CT abdomen pelvis wo con [id number] Rout ine Cat Scan 04/08/21 11:57 Completed XR chest 1V chadd ble [id number] Urgent Exams 04/08/21 10:17 Completed Pending at discharge Category Date Time Status Clostridioides Di fficile PCR Routin e Lab 04/10/21 18:40 Results Enteric Bacterial Panel by PCR Rout ine Lab 04/10/21 18:40 Results Labs from last 24 hours 04/11/21 04/11/21 04/11/21 06:31 03:16 03:16 WBC 8.0 RBC 3.88 L Hgb 12.4 Hct 38.0 MCV 97.9 MCH 32.0 MCHC 32.6 RDW 14.4 Plt Count 244 MPV 9.7 Neut % (Auto) 67.3 Lymph % (Auto) 17.1 [place] % (Auto) 12.8 Eos % (Auto) 1.9 Baso % (Auto) 0.3 Neut # (Auto) 5.35 Lymph # (Auto) 1.4 [place] # (Auto) 1.0 H Eos # (Auto) 0.2 Baso # (Auto) 0.0 Nucleated RBC % (a uto) 0 Nucleated RBCs # 0.0 Sodium 137 Potassium 4.0 Chloride 100 Carbon Dioxide 30 H Anion Gap 11.0 BUN 11 Creatinine 0.5 GFR Calculation Not Reportable Glucose 217 H POC Glucose 179 H Calculated Osmolal ity 290 Calcium 8.8 Total Bilirubin 0.2 AST 37 H ALT 116 H Alkaline Phosphata se 150 H Total Protein 5.8 L Albumin 2.9 L Globulin 2.9 Procalcitonin 04/10/21 04/10/21 04/10/21 20:26 17:06 10:50 WBC RBC Hgb Hct MCV MCH MCHC RDW Plt Count MPV Neut % (Auto) Lymph % (Auto) [place] % (Auto) Eos % (Auto) Baso % (Auto) Neut # (Auto) Lymph # (Auto) [place] # (Auto) Eos # (Auto) Baso # (Auto) Nucleated RBC % (a uto) Nucleated RBCs # Sodium Potassium Chloride Carbon Dioxide Anion Gap BUN Creatinine GFR Calculation Glucose POC Glucose 246 H 183 H 215 H Calculated Osmolal ity Calcium Total Bilirubin AST ALT Alkaline Phosphata se Total Protein Albumin Globulin Procalcitonin 04/10/21 05:02 WBC RBC Hgb Hct MCV MCH MCHC RDW Plt Count MPV Neut % (Auto) Lymph % (Auto) [place] % (Auto) Eos % (Auto) Baso % (Auto) Neut # (Auto) Lymph # (Auto) [place] # (Auto) Eos # (Auto) Baso # (Auto) Nucleated RBC % (a uto) Nucleated RBCs # Sodium Potassium Chloride Carbon Dioxide Anion Gap BUN Creatinine GFR Calculation Glucose POC Glucose Calculated Osmolal ity Calcium Total Bilirubin AST ALT Alkaline Phosphata se Total Protein Albumin Globulin Procalcitonin 0.09 Vitals: Last Vital Signs Temp 98.0 F 04/11/21 07:58 Pulse 93 04/11/21 07:58 Resp 16 04/11/21 07:58 BP 167/81 04/11/21 07:58 Pulse Ox 90 04/11/21 07:58 Discharge Plan Discharge Patient Disposition: Home Condition: Stable Prescriptions: New ciprofloxacin HCl 500 mg tablet 500 mg PO BID Qty: 14 RF: 0 metronidazole 500 mg tablet 500 mg PO Q8H 7 Days Qty: 21 RF: 0 Continued aspirin [Aspir-81] 81 mg tablet,delayed release (DR/EC) 81 mg PO DAILY RF: 0 atorvastatin 80 mg tablet 80 mg PO BEDTIME RF: 0 bupropion HCl 150 mg tablet extended release 24 hr 150 mg PO BID RF: 0 Farxiga 5 mg tablet 5 mg PO DAILY RF: 0 furosemide 40 mg tablet 40 mg PO BID RF: 0 gabapentin 300 mg capsule See Rx Instructions .ROUTE .COMPLEX RF: 0 levetiracetam 500 mg tablet 500 mg PO BID RF: 0 losartan 100 mg tablet 100 mg PO DAILY RF: 0 nitroglycerin 0.4 mg tablet, sublingual 0.4 mg SUBLINGUAL Q5M PRN (Reason: Chest Pain) RF: 0 nortriptyline 25 mg capsule 25 mg PO BEDTIME RF: 0 paroxetine HCl 10 mg tablet 10 mg PO DAILY RF: 0 potassium chloride 20 mEq tablet extended release 20 meq PO DAILY RF: 0 ropinirole 0.25 mg tablet 0.25 mg PO TID RF: 0 Xarelto 10 mg tablet 10 mg PO DAILY RF: 0 albuterol sulfate 2.5 mg /3 mL (0.083 %) Solution For Nebulization 2.5 mg INHALATION TID PRN (Reason: Shortness Of Breath) RF: 0 levothyroxine 88 mcg Tablet 88 mcg PO DAILY RF: 0 hyoscyamine sulfate 0.125 mg Tablet 0.125 mg PO Q6H PRN (Reason: stomach cramps) RF: 0 omeprazole 20 mg Capsule,Delayed Release(Dr/Ec) 20 mg PO DAILY RF: 0 albuterol sulfate 90 mcg/actuation Hfa Aerosol Inhaler 2 puff INHALATION Q4H PRN (Reason: Shortness Of Breath) RF: 0 cholecalciferol (vitamin D3) [Vitamin D3] 25 mcg (1,000 unit) Tablet 25 mcg PO DAILY RF: 0 Spiriva Respimat 2.5 mcg/actuation Mist 2 puff INHALATION DAILY RF: 0 amlodipine 5 mg Tablet 10 mg PO DAILY Qty: 0 RF: 0 isosorbide mononitrate 120 mg tablet extended release 24 hr 60 mg PO DAILY Qty: 0 RF: 0 Levemir FlexTouch U-100 Insuln 100 unit/mL (3 mL) insulin pen 20 unit SUBCUT BEDTIME Qty: 0 RF: 0 fluticasone propion-salmeterol [Advair Diskus] 250-50 mcg/dose blister with device 1 inh inhalation BID Qty: 60 RF: 0 metoprolol tartrate 50 mg tablet 50 mg PO DAILY RF: 0 Discontinued multivitamin Capsule 1 cap PO DAILY RF: 0 Discharge Orders: Discharge Order (Routine); Ordered 04/11/21 Ordered By: Wyatt Fletcher Referrals: Mary Diaz [Primary Care Provider] - (Make appointment for follow-up with Dr. Joe Palomoday morning.) Patient Instructions: Ciprofloxacin (By mouth) (Cipro), Metronidazole (By mouth) (Flagyl, Flagyl 375, Flagyl ER), Ischemic Colitis (DC), COPD Stoplight, Opioid Safety Discharge Attestations Time Spent in Discharge Care*: less than 30 min Quality Metrics Clinical Quality Measures During this hospital stay, did patient experience: None Coding Level of Care Code Acute Chg FW DC note Diagnoses Colitis K52.9 COPD (chronic obstructive pulmonary disease) J44.9 History of seizure Z87.898 Abnormal liver function R94.5 History of ischemic colitis Z87.19 Hematochezia K92.1 Junctional bradycardia R00.1 Aortic valve mass I35.8 Diabetes E11.9
[2021-04-11 09:27] VITALS: PULSE 93; RESP 16; O2SAT 92
--- NOTE | 2021-04-11 10:16 | PC.SOCIAL ---
IMM update Discussed medicare rights with patient. Verbalized understanding. Gave patient a copy and placed initialed, time, dated copy in patient's chart.
[2021-04-11 11:03] LABS: Glucose Point of Care 286 mg/dL (70-110)
[2021-04-11] MEDS: insulin lispro 100 unit/1 mL SUBCUT (11:34)
== END 2021-04-11 13:46 | disposition home or self-care (01) | DRG 392 ==
LOC: ER 11:35 → MEDSURG 12:01
PROVIDERS: Physician Assistant; Admitting Provider Internal Medicine; Emergency Provider Family Medicine; PCP Internal Medicine; Visit Provider Internal Medicine
DX: K52.9 Noninfective gastroenteritis and colitis, unspecified (principal); K92.1 Melena; I69.351 Hemiplegia and hemiparesis following cerebral infarction affecting right dominant side; I25.10 Atherosclerotic heart disease of native coronary artery without angina pectoris; Z95.1 Presence of aortocoronary bypass graft; I50.9 Heart failure, unspecified; I11.0 Hypertensive heart disease with heart failure; D64.9 Anemia, unspecified; E11.42 Type 2 diabetes mellitus with diabetic polyneuropathy; E78.5 Hyperlipidemia, unspecified; J44.9 Chronic obstructive pulmonary disease, unspecified; F17.210 Nicotine dependence, cigarettes, uncomplicated; M79.7 Fibromyalgia; I35.9 Nonrheumatic aortic valve disorder, unspecified; F41.8 Other specified anxiety disorders; K21.9 Gastro-esophageal reflux disease without esophagitis; I65.23 Occlusion and stenosis of bilateral carotid arteries; R56.9 Unspecified convulsions; Z66 Do not resuscitate; Z79.84 Long term (current) use of oral hypoglycemic drugs; Z79.51 Long term (current) use of inhaled steroids; Z79.01 Long term (current) use of anticoagulants; Z79.82 Long term (current) use of aspirin; E83.42 Hypomagnesemia; E87.6 Hypokalemia
CPT/HCPCS: 36415; 36416; 36600; 71045; 74176; 80051; 80053; 80074; 81001; 81003; 82330; 82550; 82805; 82962; 83605; 83735; 84145; 84443; 85014; 85018; 85025; 85610; 85730; 87077; 87086; 87186; 87493; 87506; 93005; 94640; 96365; 96367; 96372; 97110; 97161; 99285; 99291; J0744; J1650; J1815; J1940; J3475; J7030; J7608; S0030

== ENCOUNTER 2021-06-28 22:20 | Inpatient (IN) | payer MEDICARE, MEDICAID, SELFPAY ==
--- NOTE | 2021-06-28 22:29 | CTR_ITS ---
PROCEDURE INFORMATION: Exam: CT Head Without Contrast Exam date and time: 06/28/2021 10:29 PM Age: 70 years old Clinical indication: Altered mental status/memory loss; Additional info: AMS TECHNIQUE: Imaging protocol: Computed tomography of the head without contrast. Radiation optimization: All CT scans at this facility use at least one of these dose optimization techniques: automated exposure control; mA and/or kV adjustment per patient size (includes targeted exams where dose is matched to clinical indication); or iterative reconstruction. COMPARISON: CT angio headneck* [id number] 04/02/2021 3:41 PM RADIATION DOSE METRICS: Total DLP (mGy-cm): 860.47 FINDINGS: Brain: There is moderate hypodensity of the periventricular white matter. This is nonspecific, but a likely cause is small vessel ischemic disease. Small area of encephalomalacia in the high right parietal lobe. Small area of encephalomalacia in the high left frontal lobe. These are consistent with remote insults. No abnormal intra-axial or extra-axial fluid collections are identified. There is no midline shift. No intracranial hemorrhage identified. Ventricles: The ventricles and sulci are moderately and diffusely prominent, compatible with global brain volume loss. Bones/joints: Unremarkable as visualized. Sinuses: Visualized sinuses are unremarkable. No fluid levels. Mastoid air cells: Visualized mastoid air cells are well aerated. Soft tissues: Unremarkable. CT/CT head wo con* [id number] IMPRESSION: 1. No acute intracranial process identified.
--- NOTE | 2021-06-28 22:29 | XRR_ITS ---
PROCEDURE INFORMATION: Exam: XR Chest Exam date and time: 06/28/2021 10:29 PM Age: 70 years old Clinical indication: Other: No chest compalints; Prior surgery; Surgery date: 6+ months; Surgery type: No chest complaints, AMS TECHNIQUE: Imaging protocol: XR of the chest. Views: 1 view. COMPARISON: CR XR chest 1V portable [id number] 04/08/2021 10:26 AM FINDINGS: Lungs: The right lung is clear. Mild patchy airspace opacities (atelectasis and/or consolidation) at the left lung base, increased from prior study. Pulmonary vasculature within normal limits. Pleural spaces: No visible pneumothorax or pleural effusion. Heart/Mediastinum: Heart size within normal limits. Bones/joints: Median sternotomy wires are present. XR/XR chest 1V portable [id number] IMPRESSION: 1. Mild patchy airspace opacities (atelectasis and/or consolidation) at the left lung base, increased from prior study.
--- NOTE | 2021-06-28 22:30 | ECG_ITS ---
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 Measurements Intervals Ava Rate: 54 P: -82 LA: 151 QRS: 67 QRSD: 113 T: 156 QT: 427 QTc: 407 Interpretive Statements ECTOPIC ATRIAL BRADYCARDIA POSSIBLE LEFT ATRIAL ENLARGEMENT [-0.1mV P-WAVE IN V1/V2] MODERATE INTRAVENTRICULAR CONDUCTION DELAY [110+ ms QRS DURATION] ST DEVIATION AND MODERATE T-WAVE ABNORMALITY, CONSIDER INFERIOR ISCHEMIA [-0.1+ mV T-WAVE IN II/aVF] Compared to ECG 04/08/2021 11:10:16 Bradycardia, nonsinus now presentIntraventricular conduction delay now presentT-wave abnormality now presentPossible ischemia now presentSinus rhythm no longer presentVentricular premature complex(es) no longer present Left ventricular hypertrophy no longer present ST (T wave) deviation no longer present Electronically Signed On 06-28-2021 23:57:58 CROP PEST CONTROL SPECIALIST by Sid Couch M.D. [id number]
[2021-06-28 22:33] VITALS: BP 69/45; PULSE 55; RESP 18; TEMP 36.5; O2SAT 96; BMI 18.2
--- NOTE | 2021-06-28 23:06 | W.ED.AMS ---
HPI - Altered Mental Status General: Chief Complaint: Altered Mental Status Stated Complaint: CONFUSED Time Seen by Provider: 06/28/21 22:24 Source: patient Mode of arrival: ambulatory Limitations: no limitations History of Present Illness: HPI narrative: 70-year-old female who states that she has been having increased weakness and difficulty finding words and aphasia over the last 2 days here she is able to speak fluently at times and then at times does have a hard time finding her words and becomes aphasic. States she had a stroke in the past concerned she may have had a stroke. Her last known normal was 2 days ago. States she had a difficult time walking to due to generalized weakness denies any headache has had a slight cough and is hypoxic here she is 86% on room air she does not wear oxygen at baseline at home. Associated symptoms: Deny depression Review of Systems Const: Reports: malaise Eyes: Denies: blurry vision or eye discomfort ENMT: Denies: throat pain or dental pain Card: Denies: chest pain Resp: Denies: dyspnea GI: Denies: abdominal pain, nausea, vomiting or diarrhea : Denies: dysuria Musc: Denies: neck pain or back pain Skin/Breast: Denies: rash Neuro: Reports: weakness in extremities and Slurred speech present Psych: Denies: depression James/Lymph: Denies: easy bruising All/Imm: Denies: urticaria PFSH ED PFSH: Medical History Anemia Aortic valve mass CAD (coronary artery disease) Carotid stenosis COPD (chronic obstructive pulmonary disease) Depression with anxiety Diabetes Diabetic neuropathy GERD (gastroesophageal reflux disease) Hematochezia History of ischemic colitis History of seizure HTN (hypertension) Hyperlipidemia Junctional bradycardia Stroke, embolic TIA (transient ischemic attack) Transaminitis Surgical History History of colonoscopy Family History Other CHF (congestive heart failure) Social History Smoking and tobacco status: current every day smoker cigarettes Packs smoked per day: 1 Alcohol intake: former Physical Exam Const: COMMON NORMALS: patient oriented x3 GENERAL APPEARANCE: ill appearing HENMT: COMMON NORMALS: normocephalic and atraumatic HEAD & SCALP: normocephalic and atraumatic Eye: COMMON NORMALS: Equal, round and reactive pupils present and EOMs intact bilaterally PUPIL: Yes Equal, round and reactive pupils present Neck/C-Spine: COMMON NORMALS: full ROM and supple Chest: COMMONS NORMALS: normal inspection of the chest and normal palpation of entire chest wall Resp: COMMON NORMALS: normal respiratory effort, No retractions, No use of accessory muscles and clear to auscultation bilaterally AUSCULTATION: clear to auscultation bilaterally Cardio: COMMON NORMALS: regular rate, regular rhythm and No murmurs present (Cardio) RATE: regular rate RHYTHM: regular rhythm GI: COMMON NORMALS: Normal to inspection, nondistended, normoactive bowel sounds present, Soft to palpation, non-tender and no masses PALPATION: Yes Soft to palpation Extremity: COMMON NORMALS: normal to inspection and full ROM Neuro: COMMON NORMALS: patient oriented x3 and moves all extremities SPEECH: abnormal speech GAIT: Yes Staggering gait present Psych: COMMON NORMALS: mental status grossly normal, Normal thought process present and cooperative THOUGHT PROCESS: Normal thought process present Skin: COMMON NORMALS: no rashes or lesions noted and no wounds GENERAL SKIN EXAM: no rashes or lesions noted Course Vital Signs: Vital signs: Vital Signs Temperature 97.7 F 06/28/21 22:33 Pulse Rate 55 L 06/28/21 22:33 Respiratory Rate 18 06/28/21 22:33 Blood Pressure 69/45 06/28/21 22:33 Pulse Oximetry 96 06/28/21 22:33 MDM - Altered Mental Status MDM Narrative: Medical decision making narrative: Patient presents here with a 2-day history of weakness along with aphasia could be a possible CVA head CT here is normal she is not a TPA or clot retrieval candidate as her last known normal was 2 days ago she has had some hypoxia here has had a cough at home as well x-ray shows a possible pneumonia patient treated with IV antibiotics spoke to hospitalist will admit at this time. Lab Data: Labs: Lab Results 06/28/21 06/28/21 06/28/21 23:32 23:33 23:33 WBC 9.1 10^3/uL 10^3/ uL (4.0-10.0) RBC 3.78 10^6/uL L 10 ^6/uL (4.1-5.3) Hgb 12.2 g/dL g/dL (11.5-15.3) Hct 36.4 % L % (37.0-47.0) MCV 96.3 fl fl (81-99) MCH 32.3 pg pg (28.0-34.0) MCHC 33.5 g/dL g/dL (30.0-36.0) RDW 13.8 % % (12.1-15.1) Plt Count 275 10^3/cmm 10^3 /cmm (130-400) MPV 8.9 fL fL (7.4-10.4) Neut % (Auto) 55.9 % % Lymph % (Auto) 32.0 % % [place] % (Auto) 8.4 % % Eos % (Auto) 2.3 % % Baso % (Auto) 0.3 % % Neut # (Auto) 5.07 10^3/uL 10^3 /uL (1.8-7.7) Lymph # (Auto) 2.9 10^3/uL 10^3/ uL (0.8-4.8) [place] # (Auto) 0.8 10^3/uL 10^3/ uL (0.2-0.9) Eos # (Auto) 0.2 10^3/uL 10^3/ uL (0.0-0.8) Baso # (Auto) 0.0 10^3/uL 10^3/ uL (0.0-0.1) Nucleated RBC % (a uto) 0 % % Nucleated RBCs # 0.0 /100WBC /100W BC PT INR Specimen Type Arterial Sample Site Radial, right ABG pH 7.37 (7.35-7.45) ABG pCO2 56.5 mmHg H mmHg (35-45) ABG pO2 116.0 mmHg H mmHg (80.0-100.0) ABG HCO3 32.8 mmol/L H mmo l/L (22-26) ABG Base Excess 6.1 mmol/L H mmol /L (-2.0-2.0) Allan Test N/a Hematocrit 36.1 % L % (37-47) O2 Delivery Device Nc O2 Liters/Min 2.0 % % Head Buyer Tobacco ID [id number] Sodium 138 mmol/L mmol/L (136-145) Potassium 3.8 mmol/L mmol/L (3.5-5.1) Chloride 98 mmol/L mmol/L (98-107) Carbon Dioxide 29 mmol/L mmol/L (22-29) Anion Gap 14.8 (5-19) BUN 51 mg/dL H mg/dL (8-23) Creatinine 1.3 mg/dL H mg/dL (0.5-0.9) GFR Calculation Not Reportable Glucose 68 mg/dL mg/dL (65-115) Calculated Osmolal ity 298 mOsm/kg H mOs m/kg (285-295) Lactic Acid Calcium 9.3 mg/dL mg/dL (8.5-10.5) Magnesium 1.8 mg/dL mg/dL (1.7-2.3) Total Bilirubin 0.2 mg/dL mg/dL (0.15-1.2) AST 9 U/L U/L (0-32) ALT 9 U/L U/L (0-33) Alkaline Phosphata se 54 IU/L IU/L (35-105) Total Protein 5.2 g/dL L g/dL (6.6-8.7) Albumin 3.1 g/dL L g/dL (3.5-5.2) Globulin 2.1 g/dL g/dL (1.3-4.6) Urine Color Urine Appearance Urine pH Ur Specific Gravit y Urine Protein Urine Glucose (UA) Urine Ketones Urine Blood Urine Nitrate Urine Bilirubin Urine Urobilinogen Ur Leukocyte Nelsy ase Urine RBC Urine WBC Ur Squamous Epith Cells Amorphous Sediment Urine Bacteria 06/28/21 06/28/21 06/28/21 23:33 23:40 23:50 WBC RBC Hgb Hct MCV MCH MCHC RDW Plt Count MPV Neut % (Auto) Lymph % (Auto) [place] % (Auto) Eos % (Auto) Baso % (Auto) Neut # (Auto) Lymph # (Auto) [place] # (Auto) Eos # (Auto) Baso # (Auto) Nucleated RBC % (a uto) Nucleated RBCs # PT 14.70 SECONDS SEC ONDS (12.1-14.9) INR 1.12 (0.8-1.2) Specimen Type Sample Site ABG pH ABG pCO2 ABG pO2 ABG HCO3 ABG Base Excess Allan Test Hematocrit O2 Delivery Device O2 Liters/Min Head Buyer Tobacco ID Sodium Potassium Chloride Carbon Dioxide Anion Gap BUN Creatinine GFR Calculation Glucose Calculated Osmolal ity Lactic Acid 0.5 mmol/L mmol/L (0.5-2.2) Calcium Magnesium Total Bilirubin AST ALT Alkaline Phosphata se Total Protein Albumin Globulin Urine Color Yellow (Yellow) Urine Appearance Clear (CLEAR) Urine pH 5 (5-7) Ur Specific Gravit y 1.015 (1.005-1.030) Urine Protein 2+ H (Negative) Urine Glucose (UA) 2+ H (Normal) Urine Ketones Negative (Negative) Urine Blood Neg (Negative) Urine Nitrate Negative (Negative) Urine Bilirubin Neg (Negative) Urine Urobilinogen Norm mg/dL mg/dL (Negative) Ur Leukocyte Nelsy ase Negative (Negative) Urine RBC 0-4 /hpf H /hpf (0-2) Urine WBC 0-4 /hpf H /hpf (0-5) Ur Squamous Epith Cells 15-25 /hpf H /hpf (0-5) Amorphous Sediment Not Reportable Urine Bacteria Trace /hpf /hpf (NONE) Imaging Data^: CXR: Radiologist's impression: IMPRESSION: 1. Mild patchy airspace opacities (atelectasis and/or consolidation) at the left lung base, increased from prior study. CT Head: Radiologist's impression: 1. No acute intracranial process identified. EKG Data^: EKG 1: Attestation: I personally reviewed and interpreted this EKG as follows: EKG interpretation date: 06/28/21 EKG interpretation time: 23:01 Interpretation: bradycardia hr [address] or t wave abnormalities qrs 113 qtc 413 Discharge Plan Discharge Patient Disposition: Admitted As Inpatient Clinical Impression: Pneumonia, CVA (cerebrovascular accident) Condition: Stable Coding Level of Care Code ED Brim Setter for Chg Fwd Exam Comprehensive
[2021-06-28] MEDS: sodium chloride 0.9% 1,000 ML 999 ML IV ×2 (23:30→23:55)
[2021-06-28 23:40] LABS: Basophils % 0.3 %; Eosinophils # 0.2 10^3/uL (0.0-0.8); Eosinophils % 2.3 %; Hematocrit 36.4 % (37.0-47.0); Hemoglobin 12.2 g/dL (11.5-15.3); Lymphocytes # 2.9 10^3/uL (0.8-4.8); Mean Corpuscular HGB Conc 33.5 g/dL (30.0-36.0); Mean Corpuscular Hemoglobin 32.3 pg (28.0-34.0); Mean Corpuscular Volume 96.3 fl (81-99); Mean Platelet Volume 8.9 fL (7.4-10.4); Monocytes # 0.8 10^3/uL (0.2-0.9); Monocytes % 8.4 %; Neutrophils # 5.07 10^3/uL (1.8-7.7); Neutrophils % 55.9 %; Nucleated Red Blood Cells % 0 %; Platelet Count 275 10^3/cmm (130-400); Red Blood Count 3.78 10^6/uL (4.1-5.3); Red Cell Distribution Width 13.8 % (12.1-15.1); White Blood Count 9.1 10^3/uL (4.0-10.0)
[2021-06-28 23:43] LABS: ABG PCO2 56.5 mmHg (35-45); ABG PH Result 7.37 (7.35-7.45); Arterial Blood Gas Hematocrit 36.1 % (37-47); Base Excess ABG 6.1 mmol/L (-2.0-2.0); Blood Gas Sample Site Radial, right; Blood Gas Sample Type Arterial; HCO3 ABG 32.8 mmol/L (22-26); Oxygen Device NC
[2021-06-28] MEDS: cefTRIAXone 1,000 MG in sodium chloride 0.9% (plus) 50 ML 100 MG IV (23:43)
[2021-06-28 23:58] LABS: Alanine Aminotransferase 9 U/L (0-33); Albumin Level 3.1 g/dL (3.5-5.2); Alkaline Phosphatase 54 IU/L (35-105); Anion Gap 14.8 (5-19); Aspartate Amino Transferase 9 U/L (0-32); Blood Urea Nitrogen 51 mg/dL (8-23); Calcium 9.3 mg/dL (8.5-10.5); Carbon Dioxide 29 mmol/L (22-29); Chloride 98 mmol/L (98-107); Globulin 2.1 g/dL (1.3-4.6); Glucose 68 mg/dL (65-115); Magnesium 1.8 mg/dL (1.7-2.3); Osmolality Calculated 298 mOsm/kg (285-295); Potassium 3.8 mmol/L (3.5-5.1); Sodium 138 mmol/L (136-145); Total Bilirubin 0.2 mg/dL (0.15-1.2); Total Protein 5.2 g/dL (6.6-8.7)
[2021-06-28 23:59] LABS: Lactic Sepsis W/Reflex 0.5 mmol/L (0.5-2.2)
[2021-06-29] VITALS (8 sets, daily range): BP systolic 91–169; BP diastolic 54–117; PULSE 55–78; RESP 14–21; O2SAT 90–97
[2021-06-29 00:10] LABS: INR 1.12 (0.8-1.2)
[2021-06-29 00:34] LABS: Add Urine Microscopic? YES; Bacteria Urine TRACE /hpf; Bilirubin Urine Neg (Negative); Blood Urine Neg (Negative); Glucose Urine UA 2+ (Normal); Ketones Urine Negative (Negative); Leukocyte Esterase Urine Negative (Negative); Nitrate Urine Negative (Negative); Protein Urine 2+ (Negative); RBC Urine 0-4 /hpf (0-2); Specific Gravity, Urine 1.015 (1.005-1.030); Squamous Epithelial Cell Urine 15-25 /hpf (0-5); Urine Appearance Clear (CLEAR); Urine Color Yellow (Yellow); Urobilinogen Urine Norm (Negative); WBC Urine 0-4 /hpf (0-5); pH Urine 5 (5-7)
[2021-06-29] MEDS: azithromycin 500 MG in sodium chloride 0.9% 250 ML 250 MG IV (00:55)
--- NOTE | 2021-06-29 01:13 | ECG_ITS ---
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 Measurements Intervals [place] Rate: 59 P: -74 PA: 114 QRS: 63 QRSD: 122 T: 46 QT: 453 QTc: 452 Interpretive Statements JUNCTIONAL BRADYCARDIA MODERATE INTRAVENTRICULAR CONDUCTION DELAY [110+ ms QRS DURATION] NONSPECIFIC ST & T-WAVE ABNORMALITY Compared to ECG 06/28/2021 23:01:34 Bradycardia, nonsinus no longer present Possible ischemia no longer present T-wave abnormality still present Electronically Signed On 06-29-2021 17:23:28 SOCIAL SCIENCE INSTRUCTOR by Kristan Odom M.D. [id number]
--- NOTE | 2021-06-29 01:15 | PM.HP ---
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 Patient tells me that she has had a wound finding difficulty since yesterday at 3 PM, slurring of her words, no trouble coordinating, no focal neurologic deficits, no weakness, no paresthesias, no falls, no facial droop, no changes in her vision. She also tells me that recently she was diagnosed with pneumonia, placed on ciprofloxacin. Does report cough, no fevers, does report shortness of breath. No history of COVID-19 infection, has received both Covid vaccinations. In the emergency room she is out of the TPA window, CT head negative for acute stroke. She is on aspirin, Xarelto, she had a CT angiogram of her head and neck which showed near complete occlusion of left ICA, right ICA stenosis greater than 70%. She was found to have sinus bradycardia, EKG showing intraventricular conduction delay. She was hypotensive on admission, blood pressure 60s over 50s, improved with normal saline bolus of 100s over 60s, heart rate is 65, alert oriented x3, but is quite drowsy, falls back asleep, often requires redirection, does have word finding difficulty at times. I could not notice any slurring of her words, no facial droop, no focal weakness. Review of Systems Const: Reports: fever(s); Denies: chills, fatigue or malaise Eyes: Reports: blurry vision; Denies: change in vision ENMT: Denies: nasal congestion Card: Denies: chest pain, irregular heart rhythm or pre-syncope Resp: Reports: dyspnea and non-productive cough; Denies: productive cough or wheezing GI: Denies: abdominal pain, nausea, vomiting, hematemesis, diarrhea, constipation, hematochezia or melena : Denies: dysuria or urinary frequency Musc: Denies: neck pain or back pain Skin/Breast: Denies: rash Neuro: Reports: Slurred speech present; Denies: headache(s), numbness in extremities, weakness in extremities, sensory changes, lack of coordination, difficulty walking, dizziness or vertigo Psych: Denies: anxiety or depression Endo: Denies: polyuria or polydipsia Medications/Allergies Home Medications Medication Instructions Recorded Confirmed Last Taken Type aspirin 81 mg tablet,delayed 81 mg PO DAILY 08/28/19 04/10/21 04/02/21 History release atorvastatin 80 mg tablet 80 mg PO BEDTIME 08/28/19 04/10/21 04/01/21 History bupropion HCl 150 mg 24 hr tablet, 150 mg PO BID 08/28/19 04/10/21 04/02/21 History extended release dapagliflozin 5 mg tablet 5 mg PO DAILY 08/28/19 04/10/21 04/02/21 History furosemide 40 mg tablet 40 mg PO BID 08/28/19 04/10/21 04/02/21 History gabapentin 300 mg capsule See Rx Instructions .ROUTE .COMPLEX 08/28/19 04/10/21 04/02/21 History levetiracetam 500 mg tablet 500 mg PO BID tab 08/28/19 04/10/21 04/02/21 History losartan 100 mg tablet 100 mg PO DAILY 08/28/19 04/10/21 04/02/21 History nitroglycerin 0.4 mg sublingual 0.4 mg SUBLINGUAL Q5M PRN 08/28/19 04/10/21 Unknown History tablet nortriptyline 25 mg capsule 25 mg PO BEDTIME 08/28/19 04/10/21 04/01/21 History paroxetine HCl 10 mg tablet 10 mg PO DAILY 08/28/19 04/10/21 04/02/21 History potassium chloride 20 mEq 20 meq PO DAILY 08/28/19 04/10/21 04/02/21 History tablet,extended release rivaroxaban 10 mg tablet 10 mg PO DAILY 08/28/19 04/10/21 04/02/21 History ropinirole 0.25 mg tablet 0.25 mg PO TID 08/28/19 04/10/21 04/02/21 History Spiriva Respimat 2 puff INHALATION DAILY 04/02/21 04/10/21 04/02/21 History albuterol sulfate 2 puff INHALATION Q4H PRN 04/02/21 04/10/21 Unknown History albuterol sulfate 2.5 mg INHALATION TID PRN 04/02/21 04/10/21 Unknown History cholecalciferol (vitamin D3) 25 mcg PO DAILY 04/02/21 04/10/21 04/02/21 History [Vitamin D3] hyoscyamine sulfate 0.125 mg PO Q6H PRN 04/02/21 04/10/21 Unknown History levothyroxine 88 mcg PO DAILY 04/02/21 04/10/21 04/02/21 History omeprazole 20 mg PO DAILY 04/02/21 04/10/21 04/02/21 History Levemir FlexTouch U-100 Insuln 20 unit SUBCUT BEDTIME #0 ml 04/05/21 04/10/21 04/01/21 Rx amlodipine 10 mg PO DAILY #0 tab 04/05/21 04/10/21 04/02/21 Rx fluticasone propion-salmeterol 1 inh INHALATION BID #60 ea 04/05/21 04/10/21 Unknown Rx [Advair Diskus] isosorbide mononitrate 60 mg PO DAILY #0 tab 04/05/21 04/10/21 04/02/21 Rx metoprolol tartrate 50 mg PO DAILY 04/10/21 04/10/21 Unknown History ciprofloxacin HCl 500 mg PO BID #14 tab 04/11/21 Unknown Rx metronidazole 500 mg tablet 500 mg PO Q8H 05/04/21 Unknown History Allergies Allergy/AdvReac Type Severity Reaction Status Date / Time Iodinated Contrast Media Allergy ALGY-Difficulty Verified 05/04/21 14:40 Breathing Penicillins Allergy ALGY-Rash Verified 05/04/21 14:40 PFSH Acute PFSH: Medical History Anemia Aortic valve mass CAD (coronary artery disease) Carotid stenosis COPD (chronic obstructive pulmonary disease) Depression with anxiety Diabetes Diabetic neuropathy GERD (gastroesophageal reflux disease) Hematochezia History of ischemic colitis History of seizure HTN (hypertension) Hyperlipidemia Junctional bradycardia Stroke, embolic TIA (transient ischemic attack) Transaminitis Surgical History History of colonoscopy Family History Other CHF (congestive heart failure) Social History Smoking and tobacco status: current every day smoker cigarettes Packs smoked per day: 1 Alcohol intake: former Vitals/I&O/Wt Last Vital Signs Temp 97.7 F 06/28/21 22:33 Pulse 56 L 06/29/21 01:08 Resp 14 06/29/21 01:08 BP 91/55 06/29/21 01:08 Pulse Ox 95 06/29/21 01:08 06/28/21 06/28/21 06/29/21 14:59 22:59 06:59 Intake Total 416.25 / 416.25 Balance 416.25 / 416.25 Weight last 48 hrs Weight 46.72 kg Physical Exam Const: COMMON NORMALS: no acute distress and patient oriented x3 GENERAL APPEARANCE: cooperative and comfortable HENMT: COMMON NORMALS: normocephalic HEAD & SCALP: normocephalic Eye: COMMON NORMALS: Equal, round and reactive pupils present and EOMs intact bilaterally GENERAL EYE: appearance normal, both eyes and all related structures PUPIL: Yes Equal, round and reactive pupils present Neck/C-Spine: COMMON NORMALS: full ROM and no lymphadenopathy THYROID: Thyroid normal Lymph: LYMPHATIC: no lymphadenopathy noted Resp: COMMON NORMALS: normal respiratory effort, No retractions, No use of accessory muscles and clear to auscultation bilaterally AUSCULTATION: clear to auscultation bilaterally Cardio: COMMON NORMALS: regular rate, regular rhythm, S1 normal heart sound present, S2 normal heart sound present, No gallops present (Cardio), No clicks present (Cardio) and No murmurs present (Cardio) RATE: regular rate RHYTHM: regular rhythm HEART SOUNDS: S1 normal heart sound present and S2 normal heart sound present GI: COMMON NORMALS: Normal to inspection, nondistended, normoactive bowel sounds present, Soft to palpation, non-tender and No hepatosplenomegaly present PALPATION: Yes Soft to palpation and Yes No hepatosplenomegaly present Extremity: COMMON NORMALS: normal to inspection, full ROM and no pedal edema Neuro: COMMON NORMALS: patient oriented x3, CN's II-XII intact bilaterally, moves all extremities and no focal motor deficits OTHER: No slurring of the words, does have word finding difficulty at times Psych: COMMON NORMALS: mental status grossly normal, Normal thought process present and cooperative THOUGHT PROCESS: Normal thought process present Data : 06/28/21 23:33 06/28/21 23:33 Micro: Microbiology 06/28/21 23:25 Blood Culture - Preliminary Blood SPECIMEN COLLECTED 06/28/21 23:33 Blood Culture - Preliminary Blood SPECIMEN COLLECTED A&P Assessment and plan (1) CVA (cerebrovascular accident): -Word finding difficulty, slurring of the words -On aspirin, Xarelto -History of TIAs, history of carotid artery stenosis, history of CVA with residual right-sided deficits -CTA of the head and neck March 2021 -. Near complete occlusion LEFT ICA. String sign remains through the cervical portion of the carotid artery through the cavernous sinuses. 2. RIGHT ICA stenosis greater than 70% with additional multi focal areas of stenoses throughout the cervical carotid artery. 3. Significant stenosis and calcified plaque involving the RIGHT innominate artery. 4. Origin LEFT subclavian artery stenosis at least 60%. 5. Patient has extensive calcified plaque and intimal thickening throughout the arteries of the chest, neck and head. -cardiac echo 1. This is a technically difficult study. 2. Normal left ventricular cavity size and systolic function. Left ventricular ejection fraction is estimated at 60%. Although no diagnostic regional wall motion abnormality could be identified, this possibility cannot be completely ruled out. 3. Normal right ventricular size and systolic function. 4. No prior similar studies to compare. -CT of the head was negative for acute stroke Plan: -Neurochecks -NIH stroke scale -PT OT, speech therapy eval -Allow for permissive hypertension -Continue aspirin, Xarelto -Gentle IV fluids -Discussed with cardiothoracic surgery if she would be a surgical candidate given carotid findings as above -Full code -Xarelto for DVT prophylaxis Type 2 diabetes mellitus -Low-dose sliding scale KENTRELL on CKD -Secondary dehydration continue IV fluids Pneumonia, left lung base, with hypotension sepsis -Continue Rocephin and azithromycin -Has received sepsis bolus continue fluids, monitor pressures -Maintain MAP greater than 65 -Follow sputum cultures, blood cultures, urine bacterial antigens History of COPD, smoker, on 2 L at bedtime CAD, CABG x2 Hypertension, hold blood pressure medications Diabetic peripheral neuropathy, continue gabapentin Seizures, continue Keppra Status: Acute (2) Pneumonia: Status: Acute (3) HTN (hypertension): Status: Acute Attestations Medical Necessity Statement*: Patient requires hospitalization, for acute CVA, pneumonia with sepsis, recurrent hospital admission, inpatient, greater than 2 midnights Coding Level of Care Code 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
[2021-06-29] MEDS: aspirin 81 mg Chew Tablet 324 MG PO (01:25)
[2021-06-29] MEDS: sodium chloride 0.9% 500 ML 999 ML IV (01:25)
[2021-06-29 01:48] LABS: Lactic Sepsis W/Reflex 0.5 mmol/L (0.5-2.2)
[2021-06-29 01:50] LABS: Troponin(5th) Baseline 21 ng/L (0-10)
[2021-06-29 01:58] LABS: NT Pro B Type Natriuretic Pept 754 pg/mL (0-125); Procalcitonin 0.03 ng/mL (0-0.5)
[2021-06-29 02:02] LABS: SARS Covid-2 Antigen Negative (Negative)
[2021-06-29 05:16] LABS: Estmated Average Glucose 217; Hemoglobin A1C 9.2 % (4.0-6.0)
[2021-06-29 05:20] LABS: Chol HDL Ratio 2.91 mg/dL (0.0-4.40); Cholesterol 125 mg/dL (0-200); HDL Cholesterol 43 mg/dL (60-100); LDL Cholesterol Calculated 45 mg/dL (50-129); LDL HDL Ratio 1.05 RATIO (0.00-3.22); Thyroid Stimulating Hormone 1.27 uIU/mL (0.27-4.20); Triglycerides 187 mg/dL (0-150)
[2021-06-29 06:02] LABS: Troponin 5 2HR 19.57 ng/L (0-10); Troponin 5 2HR Delta -1.43 ABS# (0-10)
[2021-06-29] MEDS: sodium chloride 0.9% 1,000 ML 100 ML IV (06:10)
[2021-06-29] MEDS: gabapentin 300 mg Capsule PO (06:38)
[2021-06-29 07:34] LABS: Glucose Point of Care 76 mg/dL (70-110)
[2021-06-29 07:40] LABS: Troponin 5 6HR 18.91 ng/L (0-10); Troponin 5 6HR Delta -2.09 ng/L (0-12)
[2021-06-29] MEDS: levothyroxine 88 mcg Tablet PO (08:14)
[2021-06-29] MEDS: levETIRAcetam 500 mg Tablet PO (08:14)
[2021-06-29] MEDS: aspirin 81 mg EC Tablet PO ×3 (08:14→09:53)
[2021-06-29] MEDS: buPROPion XL (24 HR) 150 mg Tablet PO (08:14)
[2021-06-29] MEDS: famotidine 20 mg Tablet PO (08:14)
[2021-06-29] MEDS: PARoxetine 20 mg Tablet 10 MG PO (08:15)
[2021-06-29] MEDS: ropinirole 0.25 mg Tablet PO (08:15)
[2021-06-29] MEDS: rivaroxaban 10 mg Tablet PO (08:16)
[2021-06-29] MEDS: docusate sodium 100 mg Capsule PO (08:44)
[2021-06-29 08:54] LABS: Adenovirus Not Detected (NOT DETECT); Chlamydia Pneumoniae Not Detected (NOT DETECT); Coronavirus 229E,HKU1,NL63,OC4 Not Detected (NOT DETECT); Human Metapneumovirus Not Detected (NOT DETECT); Human Rhinovirus/Enterovirus Not Detected (NOT DETECT); Influenza A Not Detected (NOT DETECT); Influenza A H1 Not Detected (NOT DETECT); Influenza A H1-2009 Not Detected (NOT DETECT); Influenza A H3 Not Detected (NOT DETECT); Influenza B Not Detected (NOT DETECT); Mycoplasma Pneumoniae Not Detected (NOT DETECT); Parainfluenza Virus Type 1 Not Detected (NOT DETECT); Parainfluenza Virus Type 2 Not Detected (NOT DETECT); Parainfluenza Virus Type 3 Not Detected (NOT DETECT); Parainfluenza Virus Type 4 Not Detected (NOT DETECT); Respiratory Syncytial Virus A Not Detected (NOT DETECT); Respiratory Syncytial Virus B Not Detected (NOT DETECT); SARS-COV-2 Not Detected (NOT DETECT)
[2021-06-29 09:10] LABS: Influenza A Not Detected (NOT DETECT); Influenza A H1 Not Detected (NOT DETECT); Influenza A H1-2009 Not Detected (NOT DETECT); Influenza A H3 Not Detected (NOT DETECT); Influenza B Not Detected (NOT DETECT)
[2021-06-29 09:19] LABS: Results from GT
--- NOTE | 2021-06-29 10:25 | PC.PHAR ---
pt unable to verify medications-pt states she has a home health but is unsure the name of the home health-medications entered are meds that [facility] has filled or has on hold and what [facility] has filled-pt states she uses 22units of her long acting insulin [facility] last filled 11/30/20 50units hs rx written 04/05/21 20 units hs -notes are made in the pharmacy comments
--- NOTE | 2021-06-29 10:27 | P.PN_ITS ---
Subjective Subjective: Interval history: History and physical reviewed. Patient relates no complaints. She states her speech is somewhat better. She is not sure how she is going to walk. Medications: Reviewed: Yes Vitals/I&O/Wt Last Vital Signs Temp 97.7 F 06/28/21 22:33 Pulse 56 L 06/29/21 08:00 Resp 21 H 06/29/21 06:36 BP 169/75 06/29/21 08:00 Pulse Ox 94 06/29/21 08:06 06/28/21 06/29/21 06/29/21 22:59 06:59 14:59 Intake Total 2216.25 / 2216.25 Balance 2216.25 / 2216.25 Weight last 48 hrs Weight 46.72 kg Physical Exam Narrative: EXAM NARRATIVE: General exam no distress Neck is supple Cardiovascular regular rate and rhythm, 2/6 systolic murmur Lungs clear Abdomen is soft Extremities no cyanosis clubbing or edema Neurologic: Slurred speech is noted. No obvious weakness on either side. No cerebellar dysfunction. Data : 06/28/21 23:33 06/28/21 23:33 Micro: Microbiology 06/28/21 23:50 Legionella Urinary Antigen - Final Urine,Clean Catch 06/28/21 23:25 Blood Culture - Preliminary Blood SPECIMEN COLLECTED 06/28/21 23:33 Blood Culture - Preliminary Blood SPECIMEN COLLECTED A&P Assessment and plan (1) CVA (cerebrovascular accident): Symptoms have improved. Increase aspirin to 3 and 25 mg daily Continue Xarelto Previous CTA of neck demonstrated near complete occlusion of left ICA, right ICA stenosis greater than 70%. She relates that she is not a surgical candidate. Allow permissive hypertension Therapy consultations Patient wishes to go home, if appropriate and she can ambulate. She may already have in-home services and lives with her son. Status: Acute (2) Pneumonia: On Rocephin and azithromycin Patient on 2 L of oxygen, her baseline requirement Can transition to p.o. when discharged. At this point can reduce fluids. Status: Acute (3) HTN (hypertension): Permissive hypertension currently Status: Acute Plan Coronary artery disease. Currently stable. Type 2 diabetes. Sliding scale insulin Acute kidney injury, resolved Seizure disorder, continue Keppra COPD, nebs as needed Full code Xarelto will suffice for DVT prophylaxis Attestations Medical Necessity Statement*: Needs continued hospitalization for close follow-up of CVA. 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
[2021-06-29 11:31] LABS: Glucose Point of Care 230 mg/dL (70-110)
--- NOTE | 2021-06-29 14:39 | PM.DCS ---
Discharge Providers Date of Admission: 06/29/21 03:01 Date of Discharge: June 29, 2021 Attending Provider at Admission: Clinton Santana MD Attending Provider at Discharge: Haresh Stern MD Primary Care Provider: Mary Diaz Diagnoses at Discharge Discharge Diagnosis (1) CVA (cerebrovascular accident): Status: Acute (2) Pneumonia: Status: Acute (3) HTN (hypertension): Status: Acute Reason for Visit Reason for Visit: CONFUSED Hospital Course Hospital Course Selin presented to the hospital with slurred speech, weakness. There was concern for CVA. She has known severe bilateral carotid disease and she reports she is not a surgical candidate. She had been compliant with her aspirin as well as Xarelto. There was concern of the left lower lobe pneumonia. Head CT demonstrated no acute process. Admission orders were initiated, IV antibiotics started. When I visited the patient she demanded to go home. She stated she would leave one way or another. She stated her neurologic deficit with weakness and slurred speech had gone away. We discussed the risks and benefits, including and/or permanent disability. She still wished to go home. I went ahead and discussed with her to increase her aspirin to 325 mg, and continue her Xarelto. She will need close follow-up with her primary care provider. It did not appear to me that it would benefit anybody to have her sign out AGAINST MEDICAL ADVICE, and that perhaps by discharging her as she was adamant about this could facilitate in her follow-up and medication changes. She was encouraged not to smoke, take antibiotic as prescribed for her possible pneumonia. Note that she was not requiring oxygen while here in the emergency department, although she does use 2 L at night chronically. I did discuss her discharge with her son, and he reported she could be demanding at times. Physical Exam Narrative: EXAM NARRATIVE: General exam no apparent distress Neck is supple Cardiovascular regular rate and rhythm Lungs clear Abdomen is soft, positive bowel sounds Extremities no cyanosis clubbing or edema Neurologic: Slight left facial droop. Speech very clear. No focal deficits. Discharge Data Studies Completed and Pending Completed Studies During Hospitalization Category Date Time Status CT head wo con* [id number] Urgent Cat Scan 06/28/21 22:29 Completed XR chest 1V portable [id number] Urgent Exams 06/28/21 22:29 Completed Pending at discharge Category Date Time Status Blood Culture Stat Lab 06/28/21 23:25 Results Complete Blood Count w/Auto AM LABS Lab 06/30/21 04:00 Ordered Complete Blood Count w/Auto AM LABS Lab 07/01/21 04:00 Ordered Complete Blood Count w/Auto AM LABS Lab 07/02/21 04:00 Ordered Comprehensive Metabolic Panel AM LABS Lab 06/30/21 04:00 Ordered Comprehensive Metabolic Panel AM LABS Lab 07/01/21 04:00 Ordered Comprehensive Metabolic Panel AM LABS Lab 07/02/21 04:00 Ordered Sputum Culture and Gram Stain Stat Lab 06/29/21 01:13 Uncollected Radiology Impressions Chest X-Ray 06/28/21 22:29 IMPRESSION: 1. Mild patchy airspace opacities (atelectasis and/or consolidation) at the left lung base, increased from prior study. Head CT 06/28/21 22:29 IMPRESSION: 1. No acute intracranial process identified. Laboratory Results WBC 9.1 10^3/uL (4.0-10.0) 06/28/21 23:33 RBC 3.78 10^6/uL (4.1-5.3) L 06/28/21 23:33 Hgb 12.2 g/dL (11.5-15.3) 06/28/21 23:33 Hct 36.4 % (37.0-47.0) L 06/28/21 23:33 MCV 96.3 fl (81-99) 06/28/21 23:33 MCH 32.3 pg (28.0-34.0) 06/28/21 23:33 MCHC 33.5 g/dL (30.0-36.0) 06/28/21 23:33 RDW 13.8 % (12.1-15.1) 06/28/21 23:33 Plt Count 275 10^3/cmm (130-400) 06/28/21 23:33 MPV 8.9 fL (7.4-10.4) 06/28/21 23:33 Neut % (Auto) 55.9 % 06/28/21 23:33 Lymph % (Auto) 32.0 % 06/28/21 23:33 [place] % (Auto) 8.4 % 06/28/21 23:33 Eos % (Auto) 2.3 % 06/28/21 23:33 Baso % (Auto) 0.3 % 06/28/21 23:33 Neut # (Auto) 5.07 10^3/uL (1.8-7.7) 06/28/21 23:33 Lymph # (Auto) 2.9 10^3/uL (0.8-4.8) 06/28/21 23:33 [place] # (Auto) 0.8 10^3/uL (0.2-0.9) 06/28/21 23:33 Eos # (Auto) 0.2 10^3/uL (0.0-0.8) 06/28/21 23:33 Baso # (Auto) 0.0 10^3/uL (0.0-0.1) 06/28/21 23:33 Nucleated RBC % (auto) 0 % 06/28/21 23: Nucleated RBCs # 0.0 /100WBC 06/28/21 23:33 PT 14.70 SECONDS (12.1-14.9) 06/28/21 23:40 INR 1.12 (0.8-1.2) 06/28/21 23:40 Specimen Type Arterial 06/28/21 23:32 Sample Site Radial, right 06/28/21 23:32 ABG pH 7.37 (7.35-7.45) 06/28/21 23:32 ABG pCO2 56.5 mmHg (35-45) H 06/28/21 23:32 ABG pO2 116.0 mmHg (80.0-100.0) H 06/28/21 23:32 ABG HCO3 32.8 mmol/L (22-26) H 06/28/21 23:32 ABG Base Excess 6.1 mmol/L (-2.0-2.0) H 06/28/21 23:32 Allan Test N/a 06/28/21 23:32 Hematocrit 36.1 % (37-47) L 06/28/21 23:32 O2 Delivery Device Nc 06/28/21 23:32 O2 Liters/Min 2.0 % 06/28/21 23:32 Supervisor Dog License Officer ID [email or web address] 06/28/21 23:32 Sodium 138 mmol/L (136-145) 06/28/21 23:33 Potassium 3.8 mmol/L (3.5-5.1) 06/28/21 23:33 Chloride 98 mmol/L (98-107) 06/28/21 23:33 Carbon Dioxide 29 mmol/L (22-29) 06/28/21 23:33 Anion Gap 14.8 (5-19) 06/28/21 23:33 BUN 51 mg/dL (8-23) H 06/28/21 23:33 Creatinine 1.3 mg/dL (0.5-0.9) H 06/28/21 23:33 GFR Calculation Not Reportable 06/28/21 23:33 Glucose 68 mg/dL (65-115) 06/28/21 23:33 POC Glucose 230 mg/dL (70-110) H 06/29/21 11:27 Estimat Average Glucose 217 06/29/21 03:39 Hemoglobin A1c 9.2 % (4.0-6.0) H 06/29/21 03:39 Calculated Osmolality 298 mOsm/kg (285-295) H 06/28/21 23:33 Lactic Acid 0.5 mmol/L (0.5-2.2) 06/29/21 01: Calcium 9.3 mg/dL (8.5-10.5) 06/28/21 23:33 Magnesium 1.8 mg/dL (1.7-2.3) 06/28/21 23:33 Total Bilirubin 0.2 mg/dL (0.15-1.2) 06/28/21 23:33 AST 9 U/L (0-32) 06/28/21 23:33 ALT 9 U/L (0-33) 06/28/21 23:33 Alkaline Phosphatase 54 IU/L (35-105) 06/28/21 23:33 Troponin T Baseline 21 ng/L (0-10) H 06/29/21 01:25 Troponin T 120 Minute 19.57 ng/L (0-10) H 06/29/21 03:39 Delta Troponin T -1.43 ABS# (0-10) L 06/29/21 03:39 Troponin T Hi Sens 6Hr 18.91 ng/L (0-10) H 06/29/21 07:12 Troponin T Hi Sens 6Hr Delta -2.09 ng/L (0-12) L 06/29/21 07:12 NT-Pro-B Natriuret Pep 754 pg/mL (0-125) H 06/29/21 01:25 Total Protein 5.2 g/dL (6.6-8.7) L 06/28/21 23:33 Albumin 3.1 g/dL (3.5-5.2) L 06/28/21 23:33 Globulin 2.1 g/dL (1.3-4.6) 06/28/21 23:33 Triglycerides 187 mg/dL (0-150) H 06/29/21 03:39 Cholesterol 125 mg/dL (0-200) 06/29/21 03:39 LDL Cholesterol, Calc 45 mg/dL (50-129) L 06/29/21 03:39 HDL Cholesterol 43 mg/dL (60-100) L 06/29/21 03:39 LDL/HDL Ratio 1.05 RATIO (0.00-3.22) 06/29/21 03:39 Cholesterol/HDL Ratio 2.91 mg/dL (0.0-4.40) 06/29/21 03:39 Procalcitonin 0.03 ng/mL (0-0.5) 06/29/21 01:25 TSH 1.27 uIU/mL (0.27-4.20) 06/29/21 03:39 Urine Color Yellow (Yellow) 06/28/21 23:50 Urine Appearance Clear (CLEAR) 06/28/21 23:50 Urine pH 5 (5-7) 06/28/21 23:50 Ur Specific [place] 1.015 (1.005-1.030) 06/28/21 23:50 Urine Protein 2+ (Negative) H 06/28/21 23:50 Urine Glucose (UA) 2+ (Normal) H 06/28/21 23:50 Urine Ketones Negative (Negative) 06/28/21 23:50 Urine Blood Neg (Negative) 06/28/21 23:50 Urine Nitrate Negative (Negative) 06/28/21 23:50 Urine Bilirubin Neg (Negative) 06/28/21 23:50 Urine Urobilinogen Norm mg/dL (Negative) 06/28/21 23:50 Ur Leukocyte Esterase Negative (Negative) 06/28/21 23:50 Urine RBC 0-4 /hpf (0-2) H 06/28/21 23:50 Urine WBC 0-4 /hpf (0-5) H 06/28/21 23:50 Ur Squamous Epith Cells 15-25 /hpf (0-5) H 06/28/21 23:50 Amorphous Sediment Not Reportable 06/28/21 23:50 Urine Bacteria Trace /hpf (NONE) 06/28/21 23:50 Nasal Influ A H1 2009 PCR Not detected (NOT DETECT) 06/29/21 06:49 Coronavirus 229E (PCR) Not detected (NOT DETECT) 06/29/21 06:49 Influenza A (H1) PCR Not detected (NOT DETECT) 06/29/21 06:49 Influenza A (H3) PCR Not detected (NOT DETECT) 06/29/21 06:49 Influenza Type A Ag Cancelled 06/29/21 06:49 Influenza Type A (PCR) Not detected (NOT DETECT) 06/29/21 06:49 Influenza Type B Ag Cancelled 06/29/21 06:49 Influenza Type B (PCR) Not detected (NOT DETECT) 06/29/21 06:49 SARS-CoV-2 (PCR) Not detected (NOT DETECT) 06/29/21 06:49 SARS-CoV-2 Ag (Rapid) Negative (Negative) 06/29/21 01:25 Vitals Last Vital Signs Temp 97.7 F 06/28/21 22:33 Pulse 56 L 06/29/21 08:00 Resp 21 H 06/29/21 06:36 BP 169/75 06/29/21 08:00 Pulse Ox 94 06/29/21 08:06 Discharge Plan Discharge Patient Disposition: Home Condition: Stable Prescriptions: New aspirin 325 mg Tablet,Delayed Release (Dr/Ec) 325 mg PO DAILY Qty: 30 0RF levofloxacin 750 mg tablet 750 mg PO DAILY 7 Days Qty: 7 0RF Continued atorvastatin 80 mg tablet 80 mg PO BEDTIME 0RF Farxiga 5 mg tablet 5 mg PO DAILY 0RF furosemide 40 mg tablet 40 mg PO BID 0RF gabapentin 300 mg capsule See Rx Instructions .ROUTE .COMPLEX 0RF Rx Instructions: 300 mg orally in the morning / 600 mg orally in the evening levetiracetam 500 mg tablet 500 mg PO BID 0RF losartan 100 mg tablet 100 mg PO DAILY 0RF nitroglycerin 0.4 mg tablet, sublingual 0.4 mg SUBLINGUAL Q5M PRN (Reason: Chest Pain) 0RF nortriptyline 25 mg capsule 25 mg PO BEDTIME 0RF Xarelto 10 mg tablet 10 mg PO DAILY 0RF bupropion HCl 150 mg tablet sustained-release 12 hr 150 mg PO BID 0RF potassium chloride 10 mEq capsule, extended release 10 meq PO DAILY 0RF amlodipine 5 mg tablet 5 mg PO DAILY 0RF isosorbide mononitrate 120 mg tablet extended release 24 hr 120 mg PO QAM 0RF paroxetine HCl 20 mg tablet 20 mg PO DAILY 0RF ropinirole 0.5 mg tablet 0.5 mg PO TID 0RF Levemir FlexTouch U-100 Insuln 100 unit/mL (3 mL) insulin pen 22 unit SUBCUT BEDTIME 0RF promethazine-DM 6.25-15 mg/5 mL Syrup 5 ml PO Q6H PRN (Reason: Cough) 0RF griseofulvin microsize 500 mg tablet 500 mg PO BID 0RF prednisone 20 mg tablet 40 mg PO DAILY 0RF Rx Instructions: for 7 days levofloxacin 500 mg tablet 500 mg PO DAILY 0RF ketoconazole 2 % cream 1 applic TOPICAL BID PRN (Reason: rx filled 06/10/21) 0RF budesonide 1 mg/2 mL suspension for nebulization 1 mg inhalation .EVERY 2 DAYS 0RF albuterol sulfate 2.5 mg /3 mL (0.083 %) Solution For Nebulization 2.5 mg INHALATION TID PRN (Reason: Shortness Of Breath) 0RF levothyroxine 88 mcg Tablet 88 mcg PO DAILY 0RF hyoscyamine sulfate 0.125 mg Tablet 0.125 mg PO Q6H PRN (Reason: stomach cramps) 0RF omeprazole 20 mg Capsule,Delayed Release(Dr/Ec) 20 mg PO DAILY 0RF albuterol sulfate 90 mcg/actuation Hfa Aerosol Inhaler 2 puff INHALATION Q4H PRN (Reason: Shortness Of Breath) 0RF cholecalciferol (vitamin D3) [Vitamin D3] 25 mcg (1,000 unit) Tablet 25 mcg PO DAILY 0RF Spiriva Respimat 2.5 mcg/actuation Mist 2 puff INHALATION DAILY 0RF fluticasone propion-salmeterol [Advair Diskus] 250-50 mcg/dose blister with device 1 inh inhalation BID Qty: 60 0RF metoprolol tartrate 50 mg tablet 25 mg PO BID 0RF Discontinued aspirin [Aspir-81] 81 mg Tablet,Delayed Release (Dr/Ec) 81 mg PO DAILY 0RF Discharge Orders: Discharge Order (Routine); Ordered 06/29/21 Ordered By: Haresh Stern Referrals: Mary Diaz [Primary Care Provider] - 1-3 days (follow up pneumonia, CVA) Discharge Diet: Cardiac Patient Instructions: Opioid Safety Activity Restrictions/Additional Instructions: Take all medicine as prescribed. Follow-up in 1 to 3 days. Return for any worsening. Note that you have been prescribed an antibiotic, and your aspirin has been increased to 325 mg daily. Discharge Attestations Time Spent in Discharge Care*: greater than 30 min Quality Metrics Clinical Quality Measures [ Cerebrovascular Accident { Contraindication to Antithrombotic: None; antithrombotic prescribed; Contraindication to Anticoagulation: None; anticoagulation prescribed; Contraindication to Statin: None; Statiin prescribed;}] Coding Level of Care Code Acute [facility] note Diagnoses CVA (cerebrovascular accident) I63.9 Pneumonia J18.9 HTN (hypertension) I10
[2021-06-30 02:54] LABS: Glucose Point of Care 79 mg/dL (70-110)
[2021-06-30 02:54] LABS: Glucose Point of Care 59 mg/dL (70-110)
== END 2021-06-29 15:40 | disposition home or self-care (01) | DRG 64 ==
LOC: ER 06-29 00:51 → ER IP 06-29 02:33 → MEDSURG 06-29 06:53 → ER IP 06-29 15:38
PROVIDERS: Admitting Provider Family Medicine; Emergency Provider Emergency Medicine; PCP Internal Medicine; Visit Provider Internal Medicine
DX: I63.9 Cerebral infarction, unspecified (principal); J18.9 Pneumonia, unspecified organism; I69.951 Hemiplegia and hemiparesis following unspecified cerebrovascular disease affecting right dominant side; I13.0 Hypertensive heart and chronic kidney disease with heart failure and stage 1 through stage 4 chronic kidney disease, or unspecified chronic kidney disease; I50.30 Unspecified diastolic (congestive) heart failure; N17.9 Acute kidney failure, unspecified; R47.01 Aphasia; R53.1 Weakness; R29.705 NIHSS score 5; D64.9 Anemia, unspecified; I25.10 Atherosclerotic heart disease of native coronary artery without angina pectoris; Z95.1 Presence of aortocoronary bypass graft; J44.9 Chronic obstructive pulmonary disease, unspecified; F41.8 Other specified anxiety disorders; E11.42 Type 2 diabetes mellitus with diabetic polyneuropathy; E11.22 Type 2 diabetes mellitus with diabetic chronic kidney disease; N18.9 Chronic kidney disease, unspecified; K21.9 Gastro-esophageal reflux disease without esophagitis; E78.5 Hyperlipidemia, unspecified; F17.210 Nicotine dependence, cigarettes, uncomplicated; I65.23 Occlusion and stenosis of bilateral carotid arteries; M79.7 Fibromyalgia; I95.9 Hypotension, unspecified; Z79.51 Long term (current) use of inhaled steroids; Z79.52 Long term (current) use of systemic steroids; Z79.01 Long term (current) use of anticoagulants; R56.9 Unspecified convulsions; E86.0 Dehydration
CPT/HCPCS: 36415; 36416; 70450; 71045; 80053; 80061; 81001; 82803; 82962; 83036; 83605; 83735; 83880; 84145; 84443; 84484; 85025; 85610; 87040; 87426; 87449; 87631; 87635; 92610; 93005; 94664; 96365; 96367; 99285; J0456; J0696; J7030; J7040; J7050

== ENCOUNTER 2021-12-10 21:58 | Emergency (ER) | payer MEDICARE, MEDICAID, SELFPAY ==
[2021-12-10 22:13] VITALS: BP 80/61; PULSE 76; RESP 20; TEMP 37.3; O2SAT 91
[2021-12-10 22:20] VITALS: BP 87/56; PULSE 77; RESP 18; O2SAT 93
--- NOTE | 2021-12-10 22:26 | XRR_ITS ---
PROCEDURE INFORMATION: Exam: XR Chest Exam date and time: 12/10/2021 10:36 PM Age: 71 years old Clinical indication: Angina; Additional info: Cp TECHNIQUE: Imaging protocol: Radiologic exam of the chest. Views: 1 view. COMPARISON: CR XR chest 1V portable [id number] 06/28/2021 10:36 PM FINDINGS: Lungs: There increased interstitial opacity seen in the mid lower hemithoraces bilaterally and mild indistinctness of the pulmonary vasculature seen, findings that could represent pulmonary edema. Patchy opacities are seen in the left upper hemithorax, consolidated infiltrate and pneumonia cannot be excluded. Pleural spaces: There is blunting of the right costophrenic recess possibly secondary to a tiny right pleural effusion. Heart/Mediastinum: Cardiac silhouette is at the upper limits of normal. Bones/joints: Unremarkable. XR/XR chest 1V portable [id number] IMPRESSION: 1. Indistinct pulmonary vasculature and increased interstitial opacities in the mid lower hemithoraces may represent pulmonary edema. 2. Patchy opacity in the left upper hemithorax, findings could represent infiltrates and pneumonia versus atelectasis. 3. Tiny right pleural effusion
--- NOTE | 2021-12-10 22:27 | ECG_ITS ---
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 Measurements Intervals [place] Rate: 78 P: -67 GA: 134 QRS: 38 QRSD: 116 T: 71 QT: 364 QTc: 415 Interpretive Statements ECTOPIC ATRIAL RHYTHM LEFT ATRIAL ENLARGEMENT [-0.15mV P-WAVE IN V1/V2] MODERATE INTRAVENTRICULAR CONDUCTION DELAY [110+ ms QRS DURATION] ST DEVIATION AND MODERATE T-WAVE ABNORMALITY, CONSIDER ANTERIOR ISCHEMIA [-0.1+ mV T-WAVE IN V3/V4] Compared to ECG 06/29/2021 01:33:17 Junctional rhythm now present Atrial abnormality now present Possible ischemia now present T-wave abnormality still present Electronically Signed On 12-12-2021 23:41:22 CDT by Balaji Pineda M.D. [id number]
[2021-12-10 22:58] LABS: Basophils % 0.2 %; Eosinophils # 0.1 10^3/uL (0.0-0.8); Eosinophils % 0.5 %; Hematocrit 31.4 % (37.0-47.0); Lymphocytes # 1.2 10^3/uL (0.8-4.8); Lymphocytes % 9.3 %; Mean Corpuscular HGB Conc 31.8 g/dL (30.0-36.0); Mean Corpuscular Hemoglobin 28.2 pg (28.0-34.0); Mean Corpuscular Volume 88.5 fl (81-99); Mean Platelet Volume 8.9 fL (7.4-10.4); Monocytes # 0.9 10^3/uL (0.2-0.9); Neutrophils # 10.49 10^3/uL (1.8-7.7); Neutrophils % 82.4 %; Nucleated Red Blood Cells % 0 %; Platelet Count 354 10^3/cmm (130-400); Red Blood Count 3.55 10^6/uL (4.1-5.3); Red Cell Distribution Width 15.4 % (12.1-15.1); White Blood Count 12.7 10^3/uL (4.0-10.0)
[2021-12-10] MEDS: sodium chloride 0.9% 500 ML 999 ML IV (23:07)
[2021-12-10 23:13] LABS: INR 1.18 (0.8-1.2)
[2021-12-10 23:15] LABS: Partial Thromboplastin Time 31.3 SECONDS (23.9-36.7)
[2021-12-10 23:18] LABS: Troponin(5th) Baseline 25 ng/L (0-10)
[2021-12-10 23:20] VITALS: BP 98/67; PULSE 75; O2SAT 94
[2021-12-10 23:27] LABS: NT Pro B Type Natriuretic Pept 3990 pg/mL (0-125); Procalcitonin 0.09 ng/mL (0-0.5)
[2021-12-10] MEDS: ipratropium-albuterol 3 mL Neb INHALATION (23:36)
[2021-12-10 23:38] VITALS: PULSE 77; RESP 18; O2SAT 92
[2021-12-10 23:38] LABS: Alanine Aminotransferase 19 U/L (0-33); Albumin Level 2.7 g/dL (3.5-5.2); Alkaline Phosphatase 63 IU/L (35-105); Anion Gap 16.2 (5-19); Aspartate Amino Transferase 14 U/L (0-32); Blood Urea Nitrogen 19 mg/dL (8-23); C Reactive Protein 88.6 mg/L (0.0-4.9); Calcium 9.3 mg/dL (8.5-10.5); Carbon Dioxide 28 mmol/L (22-29); Chloride 90 mmol/L (98-107); Creatine Phosphokinase 19 U/L (26-192); Globulin 3.7 g/dL (1.3-4.6); Glucose 134 mg/dL (65-115); Osmolality Calculated 274 mOsm/kg (285-295); Potassium 4.2 mmol/L (3.5-5.1); Sodium 130 mmol/L (136-145); Total Bilirubin 0.2 mg/dL (0.15-1.2); Total Protein 6.4 g/dL (6.6-8.7)
[2021-12-10 23:43] VITALS: PULSE 76
[2021-12-11] MEDS: levofloxacin-dextrose 5 % 750 MG/150 ML PREMIX 100 MG IV (00:04)
--- NOTE | 2021-12-11 00:27 | ECG_ITS ---
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 Measurements Intervals [place] Rate: 77 P: -65 MS: 139 QRS: 36 QRSD: 114 T: 61 QT: 387 QTc: 438 Interpretive Statements ECTOPIC ATRIAL RHYTHM POSSIBLE LEFT ATRIAL ENLARGEMENT [-0.1mV P-WAVE IN V1/V2] MODERATE INTRAVENTRICULAR CONDUCTION DELAY [110+ ms QRS DURATION] NONSPECIFIC ST & T-WAVE ABNORMALITY Compared to ECG 12/10/2021 22:29:26 Ventricular premature complex(es) now present Possible ischemia no longer present T-wave abnormality still present Electronically Signed On 12-12-2021 23:45:17 CDT by Balaji Pineda M.D. [email or web address] medical [email or web address] health st[facility].[id number]
[2021-12-11 00:43] LABS: Troponin 5 2HR 21.42 ng/L (0-10); Troponin 5 2HR Delta -3.58 ABS# (0-10)
--- NOTE | 2021-12-11 00:48 | W.ED.GENADLT ---
HPI - General Adult General: Chief complaint: General Medical Stated complaint: RIB/CHEST PAIN Time Seen by Provider: 12/10/21 22:15 Source: patient History of Present Illness: 71-year-old hospice patient. She presents with chest and jaw discomfort. It is labeled noncardiac by her caregivers. She notes some trouble breathing with some cough and sputum production. No fever she believes. She notes some increased swelling as well. Onset (ago): hour(s) Location: chest Radiation: other (Jaw) Severity: moderate Quality: aching Pain Consistency: constant Relieving factors: none Associated symptoms: Reports chest pain, cough, decreased appetite, dyspnea and short of breath; Deny confusion, fevers/chills, headache(s) or vomiting Review of Systems Const: Denies: fever(s) ENMT: Reports: other (Jaw pain) Card: Reports: chest pain Resp: Reports: dyspnea GI: Denies: vomiting Neuro: Denies: headache(s) or confusion PFSH ED PFSH: Medical History Anemia Aortic valve mass CAD (coronary artery disease) Carotid stenosis COPD (chronic obstructive pulmonary disease) Depression with anxiety Diabetes Diabetic neuropathy GERD (gastroesophageal reflux disease) Hematochezia History of ischemic colitis History of seizure HTN (hypertension) Hyperlipidemia Junctional bradycardia Stroke, embolic TIA (transient ischemic attack) Transaminitis Surgical History History of colonoscopy Family History Other CHF (congestive heart failure) Social History Smoking and tobacco status: current every day smoker cigarettes Packs smoked per day: 1 Years cigarettes smoked: 60 Alcohol intake: former Lives independently: No Household members: caregiver Housing: Other Details: MOBILE HOME Marital status: / Number of children: 6 Pets and animals: Yes Pets & animals: dog(s) Physical Exam Const: GENERAL APPEARANCE: cooperative, lethargic, ill appearing and frail appearing ORIENTATION/CONSCIOUSNESS: Yes lethargic HENMT: COMMON NORMALS: normocephalic and atraumatic HEAD & SCALP: normocephalic and atraumatic FACE & SINUS: normal facial exam Eye: COMMON NORMALS: EOMs intact bilaterally Neck/C-Spine: GENERAL: Yes trachea midline Chest: CHEST: Yes Symmetrical chest wall rise Resp: EFFORT & INSPECTION: Yes tachypneic, No respiratory distress, No retractions and Yes uses accessory muscles AUSCULTATION: no rhonchi, no wheezes and diminished lung sounds Cardio: COMMON NORMALS: regular rate and regular rhythm RATE: regular rate RHYTHM: regular rhythm GI: COMMON NORMALS: Normal to inspection, nondistended, normoactive bowel sounds present and Soft to palpation PALPATION: Yes Soft to palpation Neuro: LEFTY COMA SCALE: document GCS findings [place] coma scale eye opening: To sound [place] coma scale verbal response: Orientated [place] coma scale motor response: Obey commands [place] coma scale total score: 14 SENSORIUM/ORIENTATION: Yes lethargic Course Vital Signs: Vital signs: Vital Signs Temperature 99.1 F 12/10/21 22:13 Pulse Rate 84 12/11/21 04:30 Respiratory Rate 17 12/11/21 04:30 Blood Pressure 125/86 12/11/21 04:30 Pulse Oximetry 98 12/11/21 04:30 [facility] - General Adult Medical Decision Making 71-year-old hospice patient. She presents with some shortness of breath and chest pain, somewhat worse with deep breathing she is tender in the chest wall. Her white blood cell count is 12.7. Her temperature is 99.7 hemoglobin 10. BMP is benign. Her first troponin is 25, but did not rise at 2 hours. EKG shows a sinus rhythm, as P waves are present. Normal axis. QRS is 114. No acute ST changes. Chest x-ray shows mild pulmonary edema with superimposed pneumonia in the left upper lobe. BNP is 4000. She was mildly hypotensive when she arrived, but after 500 cc bolus, blood pressure 118/76. Saturations are 92 to 96% on home O2 settings of 3 to 4 L. She will be allowed discharge back to hospice with treatment for pneumonia. She received 750 mg of Levaquin here. Lab Data : 12/10/21 22:50 12/10/21 22:50 Radiology Impressions Chest X-Ray 12/10/21 22:26 IMPRESSION: 1. Indistinct pulmonary vasculature and increased interstitial opacities in the mid lower hemithoraces may represent pulmonary edema. 2. Patchy opacity in the left upper hemithorax, findings could represent infiltrates and pneumonia versus atelectasis. 3. Tiny right pleural effusion Laboratory Results WBC 12.7 10^3/uL (4.0-10.0) H 12/10/21 22:50 RBC 3.55 10^6/uL (4.1-5.3) L 12/10/21 22:50 Hgb 10.0 g/dL (11.5-15.3) L 12/10/21 22:50 Hct 31.4 % (37.0-47.0) L 12/10/21 22:50 MCV 88.5 fl (81-99) 12/10/21 22:50 MCH 28.2 pg (28.0-34.0) 12/10/21 22:50 MCHC 31.8 g/dL (30.0-36.0) 12/10/21 22:50 RDW 15.4 % (12.1-15.1) H 12/10/21 22:50 Plt Count 354 10^3/cmm (130-400) 12/10/21 22:50 MPV 8.9 fL (7.4-10.4) 12/10/21 22:50 Neut % (Auto) 82.4 % 12/10/21 22:50 Lymph % (Auto) 9.3 % 12/10/21 22:50 Dane % (Auto) 7.0 % 12/10/21 22:50 Eos % (Auto) 0.5 % 12/10/21 22:50 Baso % (Auto) 0.2 % 12/10/21 22:50 Neut # (Auto) 10.49 10^3/uL (1.8-7.7) H 12/10/21 22:50 Lymph # (Auto) 1.2 10^3/uL (0.8-4.8) 12/10/21 22:50 Dane # (Auto) 0.9 10^3/uL (0.2-0.9) 12/10/21 22:50 Eos # (Auto) 0.1 10^3/uL (0.0-0.8) 12/10/21 22:50 Baso # (Auto) 0.0 10^3/uL (0.0-0.1) 12/10/21 22:50 Nucleated RBC % (auto) 0 % 12/10/21 22:50 Nucleated RBCs # 0.0 /100WBC 12/10/21 22:50 PT 15.30 SECONDS (12.1-14.9) H 12/10/21 22:50 INR 1.18 (0.8-1.2) 12/10/21 22:50 APTT 31.3 SECONDS (23.9-36.7) 12/10/21 22:50 Sodium 130 mmol/L (136-145) L 12/10/21 22:50 Potassium 4.2 mmol/L (3.5-5.1) 12/10/21 22:50 Chloride 90 mmol/L (98-107) L 12/10/21 22:50 Carbon Dioxide 28 mmol/L (22-29) 12/10/21 22:50 Anion Gap 16.2 (5-19) 12/10/21 22:50 BUN 19 mg/dL (8-23) 12/10/21 22:50 Creatinine 0.9 mg/dL (0.5-0.9) 12/10/21 22:50 GFR Calculation Not Reportable 12/10/21 22:50 Glucose 134 mg/dL (65-115) H 12/10/21 22:50 Calculated Osmolality 274 mOsm/kg (285-295) L 12/10/21 22:50 Calcium 9.3 mg/dL (8.5-10.5) 12/10/21 22:50 Total Bilirubin 0.2 mg/dL (0.15-1.2) 12/10/21 22:50 AST 14 U/L (0-32) 12/10/21 22:50 ALT 19 U/L (0-33) 12/10/21 22:50 Alkaline Phosphatase 63 IU/L (35-105) 12/10/21 22:50 Creatine Kinase 19 U/L (26-192) L 12/10/21 22:50 Troponin T Baseline 25 ng/L (0-10) H 12/10/21 22:50 Troponin T 120 Minute 21.42 ng/L (0-10) H 12/11/21 00:15 Delta Troponin T -3.58 ABS# (0-10) L 12/11/21 00:15 C-Reactive Protein 88.6 mg/L (0.0-4.9) H 12/10/21 22:50 NT-Pro-B Natriuret Pep 3990 pg/mL (0-125) H 12/10/21 22:50 Total Protein 6.4 g/dL (6.6-8.7) L 12/10/21 22:50 Albumin 2.7 g/dL (3.5-5.2) L 12/10/21 22:50 Globulin 3.7 g/dL (1.3-4.6) 12/10/21 22:50 Procalcitonin 0.09 ng/mL (0-0.5) 12/10/21 22:50 Coronavirus 229E (PCR) Not detected (NOT DETECT) 12/11/21 02:15 SARS-CoV-2 (PCR) Not detected (NOT DETECT) 12/11/21 02:15 Discharge Plan Discharge Patient Disposition: Home Clinical Impression: Pneumonia Condition: Stable Prescriptions: New levofloxacin 750 mg tablet 750 mg PO DAILY 7 Days Qty: 7 0RF No Action atorvastatin 80 mg tablet 80 mg PO BEDTIME 0RF Farxiga 5 mg tablet 5 mg PO DAILY 0RF furosemide 40 mg tablet 40 mg PO BID 0RF gabapentin 300 mg capsule See Rx Instructions .ROUTE .COMPLEX 0RF Rx Instructions: 300 mg orally in the morning / 600 mg orally in the evening levetiracetam 500 mg tablet 500 mg PO BID 0RF losartan 100 mg tablet 100 mg PO DAILY 0RF nitroglycerin 0.4 mg tablet, sublingual 0.4 mg SUBLINGUAL Q5M PRN (Reason: Chest Pain) 0RF nortriptyline 25 mg capsule 25 mg PO BEDTIME 0RF Xarelto 10 mg tablet 10 mg PO DAILY 0RF bupropion HCl 150 mg tablet sustained-release 12 hr 150 mg PO BID 0RF potassium chloride 10 mEq capsule, extended release 10 meq PO DAILY 0RF amlodipine 5 mg tablet 5 mg PO DAILY 0RF isosorbide mononitrate 120 mg tablet extended release 24 hr 120 mg PO QAM 0RF paroxetine HCl 20 mg tablet 20 mg PO DAILY 0RF ropinirole 0.5 mg tablet 0.5 mg PO TID 0RF Levemir FlexTouch U-100 Insuln 100 unit/mL (3 mL) insulin pen 22 unit SUBCUT BEDTIME 0RF promethazine-DM 6.25-15 mg/5 mL Syrup 5 ml PO Q6H PRN (Reason: Cough) 0RF griseofulvin microsize 500 mg tablet 500 mg PO BID 0RF prednisone 20 mg tablet 40 mg PO DAILY 0RF Rx Instructions: for 7 days levofloxacin 500 mg tablet 500 mg PO DAILY 0RF ketoconazole 2 % cream 1 applic TOPICAL BID PRN (Reason: rx filled 06/10/21) 0RF budesonide 1 mg/2 mL suspension for nebulization 1 mg inhalation .EVERY 2 DAYS 0RF aspirin 325 mg Tablet,Delayed Release (Dr/Ec) 325 mg PO DAILY Qty: 30 0RF albuterol sulfate 2.5 mg /3 mL (0.083 %) Solution For Nebulization 2.5 mg INHALATION TID PRN (Reason: Shortness Of Breath) 0RF levothyroxine 88 mcg Tablet 88 mcg PO DAILY 0RF hyoscyamine sulfate 0.125 mg Tablet 0.125 mg PO Q6H PRN (Reason: stomach cramps) 0RF omeprazole 20 mg Capsule,Delayed Release(Dr/Ec) 20 mg PO DAILY 0RF albuterol sulfate 90 mcg/actuation Hfa Aerosol Inhaler 2 puff INHALATION Q4H PRN (Reason: Shortness Of Breath) 0RF cholecalciferol (vitamin D3) [Vitamin D3] 25 mcg (1,000 unit) Tablet 25 mcg PO DAILY 0RF Spiriva Respimat 2.5 mcg/actuation Mist 2 puff INHALATION DAILY 0RF fluticasone propion-salmeterol [Advair Diskus] 250-50 mcg/dose blister with device 1 inh inhalation BID Qty: 60 0RF metoprolol tartrate 50 mg tablet 25 mg PO BID 0RF Discharge Orders: Discharge ED (Routine); Ordered 12/11/21 Ordered By: Onur Rodriguez Referrals: Mary Diaz [Primary Care Provider] - 1-3 days Discharge Diet: Advance as tolerated Discharge Activity: Increase activity as tolerated Patient Instructions: Pneumonia (ED) Activity Restrictions/Additional Instructions: Return for worsening shortness of breath or chest discomfort despite treatment, any other concerning symptoms Coding Level of Care Code ED 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
[2021-12-11 02:00] VITALS: BP 114/71; PULSE 84; RESP 20; O2SAT 87
--- NOTE | 2021-12-11 02:38 | PC.NURSE ---
2nd attempt to contact the patients family for discharge ride has been made. No voice mail on josef Marlow or Freddy phone.
[2021-12-11 04:07] LABS: Adenovirus Not Detected (NOT DETECT); Chlamydia Pneumoniae Not Detected (NOT DETECT); Coronavirus 229E,HKU1,NL63,OC4 Not Detected (NOT DETECT); Human Metapneumovirus Not Detected (NOT DETECT); Human Rhinovirus/Enterovirus Not Detected (NOT DETECT); Influenza A Not Detected (NOT DETECT); Influenza A H1 Not Detected (NOT DETECT); Influenza A H1-2009 Not Detected (NOT DETECT); Influenza A H3 Not Detected (NOT DETECT); Influenza B Not Detected (NOT DETECT); Mycoplasma Pneumoniae Not Detected (NOT DETECT); Parainfluenza Virus Type 1 Not Detected (NOT DETECT); Parainfluenza Virus Type 2 Not Detected (NOT DETECT); Parainfluenza Virus Type 3 Not Detected (NOT DETECT); Parainfluenza Virus Type 4 Not Detected (NOT DETECT); Respiratory Syncytial Virus A Not Detected (NOT DETECT); Respiratory Syncytial Virus B Not Detected (NOT DETECT); SARS-COV-2 Not Detected (NOT DETECT)
[2021-12-11 04:30] VITALS: BP 125/86; PULSE 84; RESP 17; O2SAT 98
[2021-12-11 05:00] VITALS: BP 133/80; PULSE 79; RESP 19; O2SAT 98
[2021-12-11 06:31] VITALS: BP 133/80; PULSE 79; RESP 19; O2SAT 98
[2021-12-11 08:24] VITALS: BP 107/74; PULSE 80; RESP 17; O2SAT 94
== END 2021-12-11 08:38 | disposition home or self-care (01) ==
PROVIDERS: Emergency Provider Emergency Medicine; PCP Internal Medicine
DX: R07.9 Chest pain, unspecified (principal); J18.9 Pneumonia, unspecified organism; J90 Pleural effusion, not elsewhere classified; J81.1 Chronic pulmonary edema; F17.210 Nicotine dependence, cigarettes, uncomplicated; I25.10 Atherosclerotic heart disease of native coronary artery without angina pectoris; J44.9 Chronic obstructive pulmonary disease, unspecified; E11.9 Type 2 diabetes mellitus without complications; I10 Essential (primary) hypertension; E78.5 Hyperlipidemia, unspecified; Z79.82 Long term (current) use of aspirin
CPT/HCPCS: 36415; 71045; 80053; 82550; 83880; 84145; 84484; 85025; 85610; 85730; 86140; 87040; 87635; 93005; 94640; 96365; 96366; 99285; J1956; J7040